=== PATIENT | male | born 1980 | race Caucasian/White ===

== ENCOUNTER 2024-08-17 12:04 | Inpatient (IN) | payer MEDICAID, SELFPAY ==
[2024-08-17] VITALS (7 sets, daily range): BP systolic 115–127; BP diastolic 81–85; PULSE 74–102; RESP 16–18; TEMP 36.9–38.2; O2SAT 95–98
--- NOTE | 2024-08-17 12:19 | PD.EDAMS ---
Altered Mental Status RME/HPI General Chief Complaint: Altered Mental Status Stated Complaint: ALTERED MORE THAN NORMAL Time Seen by Provider: 08/17/24 13:07 Arrival date/time: 08/17/24 12:04 RME / HPI RME / HPI narrative: 44 year old male with history of quadriplegia, seizures, s/p PEG tube placement, s/p suprapubic catheter, chronic decubitus ulcers presents to the ED [facility] from [facility] for evaluation of altered mental status. Per medics, MA staff reported patient appeared altered today and were unable to provide what patients baseline is, adding the patient just arrived to their facility 2 days ago. While in the ED patient is nonverbal and unable to provide any additional history. Related Data Home Medications ?Medication ?Instructions ?Recorded ?Confirmed lorazepam 0.5 mg tablet 0.5 mg PO BID 08/15/23 04/01/24 melatonin 12 mg tablet 12 mg PO HS 08/15/23 04/01/24 sennosides 17.2 mg tablet 17.2 mg PO BID 08/15/23 04/01/24 albuterol sulfate 2.5 mg/3 mL 2.5 mg inhalation BID 12/03/23 04/01/24 (0.083 %) solution for nebulization ascorbic acid (vitamin C) 500 mg 500 mg PO DAILY 12/03/23 04/01/24 tablet baclofen 10 mg tablet 10 mg PO Q6HR 12/03/23 04/01/24 hydrocodone 10 mg-acetaminophen 1 tab PO [id number] PRN Pain (Scale 12/03/23 02/06/24 325 mg tablet Score 7-10) levetiracetam 500 mg/5 mL (5 mL) 1,000 mg PO BID 12/03/23 04/01/24 oral solution multivitamin with minerals 1 tab PO QDAY 12/03/23 04/01/24 bisacodyl 10 mg rectal suppository 10 mg WY QDAY PRN Constipation 02/06/24 04/01/24 magnesium hydroxide 400 mg/5 mL 30 ml PO QDAY PRN Constipation 02/06/24 04/01/24 oral suspension (Milk of Magnesia) sodium phosphates 19 gram-7 118 ml WY QDAY PRN Constipation 02/06/24 04/01/24 gram/118 mL enema (Fleet Enema) Previous Rx's ?Medication ?Instructions ?Recorded quetiapine 25 mg tablet 25 mg PO QDAY 1 month #30 tabs 04/08/24 Allergies Allergy/AdvReac Type Severity Reaction Status Date / Time No Known Allergies Allergy Verified 04/07/24 14:49 Review of Systems Review of Systems ROS Unobtainable: unobtainable due to mental status Past Medical History Past Medical History NEUROLOGIC: Positive Neurological Disorders, Parkinson's Disease and Seizures RESPIRATORY: Positive Asthma MUSCULOSKELETAL: Positive Musculoskeletal Disorders, Fractures and Osteomyelitis PSYCHO/SOCIAL: Positive Depression and Anxiety OTHER HISTORY: Positive Hospitalization, Developmental Delay and Falls Family History FAMILY HISTORY: Negative Family Psychiatric Problems, Family Respiratory Disorders, Family Cardiac Disorders, Family Gastrointestinal Problems, Family Cancer, Family Surgery or Family Anesthesia Reaction Surgical History SURGICAL: Negative Cardiac Surgery, Endocrine Surgery, Ear Surgery, Abdominal Surgery, Nephrectomy, Neurologic Surgery, Brain Shunt or Vasectomy Social History SMOKING STATUS: Unknown if ever smoked SECOND HAND EXPOSURE: No SUBSTANCE USE: marijuana ED Exam Narrative Physical exam: GENERAL: In general the patient is awake, nonverbal, in an emergency department gurney.? HEAD/EYES/EARS/NOSE/THROAT: normo-cephalic, atraumatic, mucus membranes are dry.? No cervical tenderness palpation midline.? Supple neck. CARDIOVASCULAR: regular rate and regular rhythm, no murmurs, heart sounds are not distant, strong pulses in all four extremities that are equal and symmetric bilateral upper and lower extremities, normal capillary refill. CHEST/PULMONARY: normal chest rise and fall, good air movement, clear to auscultation bilaterally, normal inspiratory to expiratory ratios without evidence of respiratory distress. ABDOMEN: soft, not tender, no masses appreciated, PEG tube noted without surrounding erythema, suprapubic catheter without surrounding erythema or puss. NEUROLOGICAL: cranio-facial features are symmetric, nonverbal EXTREMITY: Upper and lower extremities are contracted. no tenderness to palpation over the long bones or large joints of the bilateral upper and lower extremities, no peripheral edema. SKIN: There is a stage 2 decubitus ulcer with hole in the center to the right sacrum, there is a stage 2 decubitus ulcer on the left sacrum, warm, dry, well-perfused, no jaundice, no rash, no telangiectasias or petechia. PSYCH: calm, cooperative, no evidence of psychosis or agitation Course Quality Measures none Orders Category Date Time Status CT head/brain wo con Stat Exams 03/17/25 13:07 Completed CXRP [XR chest 1V portable] Stat Exams 08/17/24 17:57 Completed BNP [B-Type Natriuretic Peptide] Stat Lab 08/17/24 13:37 Completed CBC Stat Lab 08/17/24 13:37 Completed CMP [Comprehensive Metabolic Panel] Stat Lab 08/17/24 13:37 Completed Lactic Acid [Lactate (Lactic Acid)] Stat Lab 08/17/24 13:37 Completed Procalcitonin Stat Lab 08/17/24 13:37 Completed Troponin I Stat Lab 08/17/24 13:37 Completed Acetaminophen Clarissa [Tylenol Clarissa] Med 08/17/24 17:46 Discontinued 650 mg GT X1 ONE Vital Signs Vital signs: Vital Signs Temperature 98.4 F 08/17/24 14:21 Respiratory Rate 18 08/17/24 14:21 Blood Pressure 118/83 08/17/24 14:21 Pulse Oximetry (%) 98 08/17/24 14:21 Altered Mental Status MDM Narrative MDM Narrative:: Etta Muñoz am scribing for and in the presence of Dr. Junior. 1800: Patient signed out to Dr. Yang pending CXR, repeat temperature, and final disposition. Patient data External records reviewed:: [facility] previous records, EMS form and Retirement records (I reviewed pmhx and medication list from [facility] ) Clinical information provided by:: EMS Social determinants that could affect healthcare access:: housing (SNF resident ) Patient has the following chronic illnesses:: quadriplegia, seizures, s/p PEG tube placement, s/p suprapubic catheter, chronic decubitus ulcers How is presenting disease/condition affected by chronic disease/condition?: exacerbated by Evaluation data The following diagnostics were reviewed and interpreted by me:: lab results and radiology exam(s) Lab and/or radiology exams considered but not ordered:: None Interpretation Summary: Ordering Physician: Nery Junior MD Date of Service: 08/17/24 Procedure(s): CT head/brain wo con Accession Number(s): [id number] cc: Jimmie Chavez MD; Jose Cole MD; Nery Junior MD~ Examination: CT brain head without contrast. 2-D sagittal coronal reconstructions Date and time of exam:August 17, 2024 1442 hours Comparison 02/22/2023 INDICATIONS: Onset altered mental status today CTDI: vol (mGy):1.1 DLP: (mGycm):1075 Technique: Multiple CT axial sections of the brain have been obtained, 5 mm slice thickness. Contrast has not been administered. 2-D sagittal, coronal reconstructions have been obtained Low dose protocols were performed. One or more of the following dose reduction techniques were used; automated exposure control, adjustment of the mA and/or KV according to patient size, use of iterative reconstruction technique. Findings: No significant ventricular enlargement. Intra-axial or extra-axial hemorrhage density is not seen. No mass effect or midline shift Basal cisterns are not remarkable. Fourth ventricle is midline. Cranial vault intact. Impression: Negative for acute hemorrhage, mass effect or midline shift Advise clinical correlation and follow-up accordingly Dictated By: Jose Cole MD Signed By: <Electronically signed by Jose Cole MD in OV> 08/17/24 1507 Medications / Prescriptions Medications or Prescriptions considered but not ordered:: None Medication administrations:: Medication Administration History Discontinued Medications Acetaminophen (Acetaminophen Clarissa 325 Mg/10 Ml Udc) 650 mg GT X1 ONE Stop: 08/17/24 17:47 See above Consultations Consultation(s) initiated? (list below): No Diagnosis Differential diagnosis altered mental status: altered mental status, delirium, hypoglycemia, hyponatremia, subarachnoid hemorrhage, sepsis and other (UTI) Most likely diagnosis given after review of the tests above:: Altered mental status Admission Indicated Admission indicated?: not indicated Explain why admission is indicated or not indicated:: 1800: Patient signed out to Dr. Yang pending CXR, repeat temperature, and final disposition. Admission Request Was there a request for admission?: No Disposition Plan Disposition Plan: other (specify) (Signed out to Dr. Yang ) Discharge Plan Prescriptions/Referrals Prescriptions/Med Rec: No Action lorazepam 0.5 mg Tablet 0.5 mg PO BID sennosides 17.2 mg Tablet 17.2 mg PO BID Rx Instructions: NG tube administration melatonin 12 mg Tablet 12 mg PO HS Rx Instructions: NG tube administration quetiapine 25 mg tablet 25 mg PO QDAY 30 Days Qty: 30 0RF albuterol sulfate 2.5 mg /3 mL (0.083 %) solution for nebulization 2.5 mg inhalation BID Rx Instructions: inhalation levetiracetam 500 mg/5 mL (5 mL) solution 1,000 mg PO BID hydrocodone-acetaminophen 10-325 mg tablet 1 tab PO [id number] PRN (Reason: Pain (Scale Score 7-10)) baclofen 10 mg tablet 10 mg PO Q6HR ascorbic acid (vitamin C) 500 mg Tablet 500 mg PO DAILY multivitamin with minerals Tablet 1 tab PO QDAY magnesium hydroxide [Milk of Magnesia] 400 mg/5 mL Suspension 30 ml PO QDAY PRN (Reason: Constipation) bisacodyl 10 mg Suppository 10 mg WY QDAY PRN (Reason: Constipation) Fleet Enema 19-7 gram/118 mL Enema 118 ml WY QDAY PRN (Reason: Constipation) Referrals: Jimmie Chavez MD [Primary Care Provider] - In 1 week Problem List Clinical Impression: Fever Patient/Caregiver Discharge Instructions Print Language: Lao
--- NOTE | 2024-08-17 13:07 | XR_ITS ---
Examination: CT brain head without contrast. 2-D sagittal coronal reconstructions Date and time of exam:August 17, 2024 1442 hours Comparison 02/22/2023 INDICATIONS: Onset altered mental status today CTDI: vol (mGy):1.1 DLP: (mGycm):1075 Technique: Multiple CT axial sections of the brain have been obtained, 5 mm slice thickness. Contrast has not been administered. 2-D sagittal, coronal reconstructions have been obtained Low dose protocols were performed. One or more of the following dose reduction techniques were used; automated exposure control, adjustment of the mA and/or KV according to patient size, use of iterative reconstruction technique. Findings: No significant ventricular enlargement. Intra-axial or extra-axial hemorrhage density is not seen. No mass effect or midline shift Basal cisterns are not remarkable. Fourth ventricle is midline. Cranial vault intact. Impression: Negative for acute hemorrhage, mass effect or midline shift Advise clinical correlation and follow-up accordingly
[2024-08-17 13:45] LABS: Lactate (Lactic Acid) 1.3 mMol/L (0.4-2.0)
[2024-08-17 13:58] LABS: Basophils # (Auto) 0.1 Thou/mm3 (0.0-0.2); Basophils % (Auto) 1 % (0-2.5); Eosinophils # (Auto) 0.1 Thou/mm3 (0.0-0.5); Eosinophils % (Auto) 1 % (0-10); Hematocrit 42.6 % (41.0-53.0); Hemoglobin 13.4 g/dL (13.5-16.0); Immature Granulocytes % (Auto) 0 % (0-0); Immature Granulocytes Auto 0.02 Thou/mm3 (0.00-0.00); Lymphocytes # (Auto) 1.7 Thou/mm3 (1.0-4.8); Lymphocytes % (Auto) 26 % (10-50); Mean Corpuscular HGB Conc 31.5 g/dl (31.0-37.0); Mean Corpuscular Hemoglobin 26.4 pg (25.0-35.0); Mean Corpuscular Volume 84 fL (80-100); Monocytes # (Auto) 0.6 Thou/mm3 (0.0-0.8); Monocytes % (Auto) 8 % (0-12); Neutrophils # (Auto) 4.4 Thou/mm3 (1.8-7.7); Neutrophils % (Auto) 65 % (37-80); Nucleated Red Blood Cell % 0 /100 WBC (0); Platelet Count 135 Thou/mm3 (140-440); RDW Standard Deviation 48.1 fL (35.1-43.9); Red Blood Count 5.07 Miln/mm3 (4.50-5.90); White Blood Count 6.8 Thou/mm3 (3.8-10.6)
[2024-08-17 14:18] LABS: B-Type Natriuretic Peptide 34 pg/mL (0-100)
[2024-08-17 14:29] LABS: Alanine Aminotransferase < 7 U/L (10-49); Albumin/Globulin Ratio 1.1 (1.2-2.2); Alkaline Phosphatase 84 U/L (46-116); Anion Gap 12 (7-16); Aspartate Amino Transferase 10 U/L (0-34); BUN/Creatinine Ratio 28 Ratio (12-20); Bilirubin,Total 0.6 mg/dL (0.3-1.2); Blood Urea Nitrogen 14 mg/dL (9-23); Calcium 9.5 mg/dL (8.3-10.6); Calcium (Corrected) 9.5 mg/dL (8.5-10.1); Carbon Dioxide 23.8 mMol/L (20.0-31.0); Chloride 106 mMol/L (98-107); Creatinine (Component) 0.5 mg/dL (0.6-1.3); Globulin 3.7 gm/dL (2.3-3.5); Glucose 84 mg/dL (74-106); Osmolality,Calculated 282 (275-295); Potassium 4.2 mMol/L (3.4-5.1); Procalcitonin 0.09 ng/ml (0.0-0.49); Sodium 142 mMol/L (136-145); Total Protein 7.7 gm/dL (5.7-8.2); Troponin I < 0.002 ng/mL (0.0-0.045); eGFR > 60 See Note
--- NOTE | 2024-08-17 17:57 | XR_ITS ---
Examination: AP chest single view Technique one AP portable supine chest single view Exam date and time: August 17, 2024 1702 hrs. Comparison April 03, 2024 Indications: Fever beginning 3 days ago. Findings: Early right base pneumonia Normal heart size Mild osteopenia Impression: Early right base pneumonia
--- NOTE | 2024-08-17 18:24 | EDNOTE_ITS ---
Emergency Room Addendum <Yanet Shaw - Last Filed: 08/17/24 21:52> Addendum Narrative: [address] Junior. Past medical, surgical, social and family history reviewed. Vitals and home medications reviewed. Results and treatment plan discussed. I will assume the care of the patient at this time and will follow the patient, pending CXR, repeat temperature, and final disposition. Patient is on hospice for comfort care measures at [facility]. Please refer to the emergency department record for history and examination from initial visit. The following addendum documentation note is intended to reflect any pending information, findings, or radiology results not included in the patient?s initial chart. RADIOLOGY DATA: Examination: AP chest single view Exam date and time: August 17, 2024 1702 hrs. Comparison April 03, 2024 Indications: Fever beginning 3 days ago. Findings: Early right base pneumonia Normal heart size Mild osteopenia Impression: Early right base pneumonia 1841 Sepsis alert initiated. Orders made at this time are congruent with ED Adult Sepsis Order List. Re-evaluation is to be completed. 1907 Sepsis reassessment performed consisting of lab review, vitals, physical exam including auscultation of heart, lungs, and visual evaluation of capillary refills, mucosal membranes and extremities. 2134 UA strongly positive for infection. Case d/w hospitalist team who accepts patient for admission. Clinical Impression: #Severe Sepsis #UTI #Dehydration #AMS <Sharon Christina - Last Filed: 08/17/24 23:48> Addendum Narrative: [address] Junior. Past medical, surgical, social and family history reviewed. Vitals and home medications reviewed. Results and treatment plan discussed. I will assume the care of the patient at this time and will foll ow the patient, pending CXR, repeat temperature, and final disposition. Patient is on hospice for comfort care measures at [facility]. Please refer to the emergency department record for history and examination from initial visit. The following addendum documentation note is intended to reflect any pending information, findings, or radiology results not included in the patient?s initial chart. 1841 Sepsis alert initiated. Orders made at this time are congruent with ED Adult Sepsis Order List. Re-evaluation is to be completed. 1907 Sepsis reassessment performed consisting of lab review, vitals, physical exam including auscultation of heart, lungs, and visual evaluation of capillary refills, mucosal membranes and extremities. 2134 UA strongly positive for infection. Case d/w hospitalist team who will evaluate patient for admission. [address] abdomen pelvis before admitting the patient. 2344 Hospitalist team accepts the patient for admission. Clinical Impression: #Severe Sepsis #UTI #Dehydration #AMS RADIOLOGY RESULTS: [facility] Report Signed Patient: TRELL VERGARA [facility]. Record#: [id number] Birthdate: 1980 Age/Sex: 44 / M Location: SERX Attending Dr: Ordering Physician: Bin Sprague MD Date of Service: 08/17/24 Procedure(s): CT abdomen pelvis wo con Accession Number(s): [id number] cc: iBn Sprague MD; Jimmie Chavez MD; Jose Cole MD~ Examination: CT abdomen and pelvis without contrast. Coronal 3-D reconstructions. Sagittal 2-D reconstructions. Date and time of exam:August 17, 2024 1038 hrs. Comparison February 06, 2024 Indications: Urosepsis abdominal pain and rigid abdomen today CTDI: vol (mGy): 9.74 DLP: (mGycm): 557 Technique: Axial images of the abdomen have been obtained, 3 mm slice thickness Intravenous contrast material has not been administered. Low dose protocols were performed. One or more of the following dose reduction techniques were used; automated exposure control, adjustment of the mA and/or KV according to patient size, use of iterative reconstruction technique. Findings: Atelectasis versus pneumonia right base No focal liver or splenic lesion No gallstones Extensive bilateral renal calculi including large staghorn calculi in the right kidney, the largest in the upper pole 33 mm Abdominal aortic calcification Vascular calcification Very large amounts of stool in the rectum with thickening the rectal wall Contracted urinary bladder with 20 mm bladder calculus, marked thickening of urinary bladder wall Congenital right hip dysplasia/dislocation Impression: Extensive bilateral renal calculi including large staghorn calculi right kidney No hydronephrosis 20 mm bladder calculus Cystitis pattern Large amounts of stool in the rectum with proctitis pattern Dictated By: Jose Cole MD Signed By: <Electronically signed by Jose Cole MD in OV> 08/17/24 2316 Examination: AP chest single view Exam date and time: August 17, 2024 1702 hrs. Comparison April 03, 2024 Indications: Fever beginning 3 days ago. Findings: Early right base pneumonia Normal heart size Mild osteopenia Impression: Early right base pneumonia Attestation <Yanet Shaw - Last Filed: 08/17/24 21:52> MD Attestation Scribe Attestation: I, Mario Shaw, am scribing for and in the presence of Dr. Yang. Provider Notation: Although this document has been carefully reviewed, there may still be some phonetic and other typographical errors. These errors are purely grammatical due to imperfections in the software program and should not be construed in any way to compromise the substance of the patient's medical care during this visit. Critical Care Time <Yanet Shaw - Lucio Filed: 08/17/24 21:52> Critical Care Time Critical Care Time: Yes Total Critical Care Time (min.): 40 Attestation: The high probability of sudden, clinically significant deterioration in the patient?s condition required the highest level of my preparedness to intervene urgently. ? The services I provided to this patient were to treat and/or prevent clinically significant deterioration. Services included the following: chart data review, reviewing nursing notes and/or old charts, documentation time, it infrastructure consultant collaboration regarding findings and treatment options, medication orders and management, direct patient care, vital sign assessments and ordering, interpreting and reviewing diagnostic studies and lab tests. ? Aggregate critical care time includes only time during which I was engaged in work directly related to the patient?s care, as described above, whether at bedside or elsewhere in the Emergency Department. It did not include time spent performing other reported procedures or the services of residents, students, nurses or physician assistants.
[2024-08-17] MEDS: ACETAMINOPHEN SOL 325 MG/10 ML UDC 650 MG GT (18:29)
--- NOTE | 2024-08-17 18:40 | EKG_ITS ---
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1980 Requested By: Parmjit Banks Order Number: [id number] Reading MD: Parmjit Banks Measurements Intervals [place] Rate: 69 P: 74 HI: 166 QRS: 83 QRSD: 116 T: 75 QT: 390 QTc: 419 Interpretive Statements SINUS RHYTHM INCOMPLETE RIGHT BUNDLE BRANCH BLOCK [90+ ms QRS DURATION, TERMINAL R IN V1/V2, 40+ ms S IN I/aVL/V4/V5/V6] PROBABLE LATERAL MYOCARDIAL INFARCTION , OF INDETERMINATE AGE [35 ms Q WAVE IN I/aVL/V5/V6] MODERATE T-WAVE ABNORMALITY, CONSIDER ANTERIOR ISCHEMIA [-0.1+ mV T-WAVE IN V3/V4] Compared to ECG 03/31/2024 11:43:44 Incomplete right bundle-branch block now present Myocardial infarct finding now present Sinus tachycardia no longer present Ventricular premature complex(es) no longer present Short HI interval no longer present T-wave abnormality still present Possible ischemia still present /store/S0/[id number]/ecg/[id number].pdf
[2024-08-17 19:19] LABS: INR 1.1 (0.9-1.3); Partial Thromboplastin Time 21.1 Seconds (22.0-36.0)
[2024-08-17 19:20] LABS: LDH (Lactate Dehydrogenase) 132 U/L (120-246); Lipase 29 U/L (12-53); Phosphorous 3.6 mg/dL (2.4-5.1)
[2024-08-17] MEDS: PIPER/TAZO INJ 4.5 GM in SODIUM CHLORIDE 0.9% (POP) 100 ML IV (19:22)
[2024-08-17 21:05] LABS: Collection Type, Urine Catheter
[2024-08-17] MEDS: DOXYCYCLINE INJ 100 MG in SODIUM CHLORIDE 0.9% (POP) 100 ML IV (21:13)
[2024-08-17 21:18] LABS: Bacteria,Urine 3+; Bilirubin,Urine Negative (Negative); Blood,Urine 1+ (Negative); Budding Yeast,Urine Present; Color,Urine Orange (Lt Yel-Yel); Glucose, Urine Negative (Negative); Hyaline Casts,Urine 2 /hpf (0-1); Ketones,Urine 2+ (Negative); Leukocyte Esterase,Urine Positive (Negative); Nitrite,Urine Negative (Negative); Protein,Urine 3+ (Neg - Trace); RBC,Urine 147 /hpf (0-3); Specific Gravity,Urine 1.018 (1.001-1.035); Squamous Epithelial Cell,Urine 4 /hpf (0-5); Urobilinogen,Urine Negative mg/dL (0.0-1.0); WBC,Urine 1846 /hpf (0-5)
[2024-08-17 21:30] LABS: Clarity,Urine Turbid (Clear/Hazy); Culture Indicated,Urine Yes
--- NOTE | 2024-08-17 22:00 | XR_ITS ---
Examination: CT abdomen and pelvis without contrast. Coronal 3-D reconstructions. Sagittal 2-D reconstructions. Date and time of exam:August 17, 2024 1038 hrs. Comparison February 06, 2024 Indications: Urosepsis abdominal pain and rigid abdomen today CTDI: vol (mGy): 9.74 DLP: (mGycm): 557 Technique: Axial images of the abdomen have been obtained, 3 mm slice thickness Intravenous contrast material has not been administered. Low dose protocols were performed. One or more of the following dose reduction techniques were used; automated exposure control, adjustment of the mA and/or KV according to patient size, use of iterative reconstruction technique. Findings: Atelectasis versus pneumonia right base No focal liver or splenic lesion No gallstones Extensive bilateral renal calculi including large staghorn calculi in the right kidney, the largest in the upper pole 33 mm Abdominal aortic calcification Vascular calcification Very large amounts of stool in the rectum with thickening the rectal wall Contracted urinary bladder with 20 mm bladder calculus, marked thickening of urinary bladder wall Congenital right hip dysplasia/dislocation Impression: Extensive bilateral renal calculi including large staghorn calculi right kidney No hydronephrosis 20 mm bladder calculus Cystitis pattern Large amounts of stool in the rectum with proctitis pattern
--- NOTE | 2024-08-17 22:01 | PD.RESEVENT ---
Documentation for date of: 08/17/24 Event Note Event Note: We recieved a call from the ED Dr Yang regarding possible admission for the patient Josiah Watkins 44M with hx of qudriplegia coming from SNF for [facility]MS and turbid urine noticed by his nurse, On Exam patient had rigid abdomen and was grimacing on examination, for that reason will hold on the admission untill we get a CT abdomen and pelvice at this moment. Plan discussed with ED attending Dr Yang. - Patient's plan and care discussed with my attending, Dr. Ghada Sprague MD Internal Medicine PGY-2
[2024-08-17] MEDS: SODIUM CHLORIDE 0.9% 1000 ML 1,000 ML 999 ML IV (22:12)
[2024-08-18] VITALS (14 sets, daily range): BP systolic 112–135; BP diastolic 72–102; PULSE 81–110; RESP 18–31; TEMP 36.3–38.2; O2SAT 83–99; BMI 17.0
--- NOTE | 2024-08-18 00:03 | ESHP_ITS ---
<Statement entered by Shyam Urrutia MD - 08/20/24 06:19> I reviewed above note and agree with findings and plans. I have also personally examined the patient with medicine team and went over assessment and plan with medical team including planner internship and resident physician. Documentation for date of: 08/18/24 HPI History of Present Illness Chief complaint: AMS History of present illness: HPI:A 44-year-old male patient with past medical history of quadriplegia, seizures, status post PEG tube placement, suprapubic catheter, chronic decubitus ulcer was brought to the ED from SNF due to due to altered mental status and fever. Patient at baseline is verbal and oriented x 3 however at the facility he was noticed to have had 2 episodes of fever in in the past 2 days. He also noticed to be less talkative and not responsive to the nursing facility staff. They denied any skin rash vomiting, shortness of breath, or abdominal pain at that time. Most of the history was taken from the assisted facility staff, ED doctors, patient chart and documents due to patient mental status. In the ED patient was found to have blood pressure of 118/83, pulse rate of 95, respiratory rate of 18, temperature of 98.4, O2 saturation 98. His CBC was only significant for platelet count of 135, BMP showed lactic acid normal of 1.3, normal electrolytes, normal lipase and negative procalcitonin however his urine analysis was dark orange, turbid, with positive ketones, proteins and blood, it was positive for WBCs more than 1800, positive for bacteria and yeast. Chest x- ray showed early base pneumonia, Head CT was negative for any hemorrhage or mass effect, CT abdomen and pelvis showed bilateral calculi however there was no obstruction and no hydronephrosis, also showed cystitis, and it also was significant for huge amount of stool in the rectum area with proctitis. At the ED patient was given 1 bolus of IV fluids NS, and was started on doxycycline and Zosyn and was given 1 dose of acetaminophen through the gastric tube. PMH: As above Social hx: Unobtainable due to patient medical condition Allergies: No known allergies Review of Systems Review of Systems Systems Reviewed: All systems reviewed, normal except as documented Exam Vital Signs Temp Pulse Resp BP Pulse Ox O2 Del Method O2 Flow Rate 98.7 F 74 18 125/85 H 95 Nasal Cannula 2 08/17/24 22:06 08/17/24 22:06 08/17/24 22:06 08/17/24 22:06 08/17/24 22:06 08/17/24 22:06 08/17/24 22:06 Narrative Exam GEN: Alert, however not responsive, right eye red and congested, with yellowish discharge. 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 Results: Labs 08/17/24 13:37 08/17/24 13:37 Labs: Short CBC 08/17/24 Range/Units 13:37 WBC 6.8 (3.8-10.6) Thou/mm3 Hgb 13.4 L (13.5-16.0) g/dL Hct 42.6 (41.0-53.0) % Plt Count 135 L (140-440) Thou/mm3 BMP 08/17/24 13:37 Sodium 142 Potassium 4.2 Chloride 106 Carbon Dioxide 23.8 BUN 14 Creatinine 0.5 L Glucose 84 Calcium 9.5 Cardiac Enzymes 08/17/24 Range/Units 13:37 Troponin I < 0.002 (0.0-0.045) ng/mL Liver Function 08/17/24 Range/Units 13:37 Total Bilirubin 0.6 (0.3-1.2) mg/dL AST 10 (0-34) U/L ALT < 7 L (10-49) U/L Alkaline Phosphatase 84 (46-116) U/L Albumin 4.0 (3.5-5.0) gm/dL Urine 08/17/24 Range/Units 21:00 Urine Color [place] A (Lt Yel-Yel) Urine Clarity Turbid A (Clear/Hazy) Urine pH 7.0 (5.0-7.0) Ur Specific [place] 1.018 (1.001-1.035) Urine Protein 3+ A (Neg - Trace) Urine Glucose (UA) Negative (Negative) Quality Measures Quality Measures none Medications Home Medications and Allergies Home Medications ?Medication ?Instructions ?Recorded ?Confirmed ?Type lorazepam 0.5 mg tablet 0.25 mg PO BID 08/15/2308/01 History sennosides 17.2 mg tablet 8.6 mg PO BID 08/15/2308/18 History ascorbic acid (vitamin C) 500 mg 500 mg PO DAILY 12/0208/18/24 History tablet baclofen 10 mg tablet 10 mg PO Q6HR 12/03/2308/18 History hydrocodone 10 mg-acetaminophen 1 tab PO R6IREPD PRN P ain (Scale 12/03/23 08/18/24 History 325 mg tablet Score 7-10) levetiracetam 500 mg/5 mL (5 mL) 500 mg PO BID 4 08/18/24 History oral solution multivitamin with minerals 1 tab PO QDAY 12/03/2308/01 History bisacodyl 10 mg rectal suppository 10 mg TN QDAY PRN C onstipation 02/06/24 08/18/24 History magnesium hydroxide 400 mg/5 mL 30 ml PO QDAY PRN Cons tipation 02/06/24 08/18/24 History oral suspension (Milk of Magnesia) sodium phosphates 19 gram-7 118 ml TN Q72H PRN Constip ation 02/06/24 08/18/24 History gram/118 mL enema (Fleet Enema) ibuprofen 400 mg tablet (IBU) 400 mg PO Q12H PRN pain 08/18/24 08/18/24 History methadone 10 mg tablet 20 mg PO Q8H 08/18/24 History morphine concentrate 100 mg/5 mL 20 mg PO Q4H PRN pain 08/18/24 08/18/24 History (20 mg/mL) oral solution omeprazole 20 mg capsule,delayed 20 mg PO QDAY 5 08/18/24 History release zinc 50 mg tablet 50 mg PO QDAY 08/18/2408/18 History Allergies Allergy/AdvReac Type Severity Reaction Status Date / Time No Known Allergies Allergy Verified 04/07/24 14:49 Visit Medications Acetaminophen (Acetaminophen 325 Mg Tablet) 650 mg PO Q6H PRN PRN Reason: Fever >101.5 Stop: 09/16/24 23:35 Albuterol/Ipratropium (Albuterol/Ipratropium (Duoneb) Rt Clarissa 3 Ml Nebu) 3 ml INH Q6HRRT [facility] Stop: 09/17/24 00:59 Azithromycin (Azithromycin 250 Mg Tablet) 250 mg PO QDAY [facility] Stop: 08/25/24 08:59 Erythromycin (Erythromycin Op Oint 0.5% 1 Gm Packet) 1 gm RIGHT EYE QID ANGEL Stop: 09/16/24 23:44 Heparin Sodium (Porcine) (Heparin Sod Inj 5000 Unit/Ml Vial) 5,000 unit SC Q8HR ANGEL Stop: 08/31/24 23:44 Sodium Chloride (Ns) 1,000 mls @ 75 mls/hr IV .[id number] ANGEL Stop: 09/16/24 23:44 Ceftriaxone Sodium 1,000 mg/ (Sodium Chloride) 50 mls @ 100 mls/hr IV QDAY ANGEL Stop: 08/24/24 23:40 Mineral Oil (Mineral Oil 30 Ml Udc) 30 ml TN BID ANGEL Stop: 09/16/24 23:44 Ondansetron HCl (Ondansetron Inj 2 Mg/Ml Inj 2 Ml) 4 mg IV Q6H PRN; Protocol PRN Reason: NAUSEA OR VOMITING Stop: 09/16/24 23:35 Pantoprazole Sodium (Pantoprazole Inj 40 Mg Vial) 40 mg IVP QDAY [facility] Stop: 09/17/24 08:59 Polyethylene Glycol (Polyethylene Glycol 17 Gm Packet) 17 gm PO X1 ONE Stop: 08/17/24 23:46 Discontinued Medications Acetaminophen (Acetaminophen Clarissa 325 Mg/10 Ml Udc) 650 mg GT X1 ONE Stop: 08/17/24 17:47 Last Admin: 08/17/24 18:29 Dose: 650 mg Piperacillin Sod/Tazobactam (Sod 4.5 gm/ Sodium Chloride) 100 mls @ 200 mls/hr IV X1 ONE Stop: 08/17/24 19:11 Last Infusion: 08/17/24 20:30 Dose: Infused Doxycycline Hyclate 100 mg/ (Sodium Chloride) 100 mls @ 100 mls/hr IV X1 ONE Stop: 08/17/24 21:26 Last Admin: 08/17/24 21:13 Dose: 100 mls/hr Sodium Chloride (Ns) 1,000 mls @ 999 mls/hr IV .Q1H1M ONE Stop: 08/17/24 22:40 Last Admin: 08/17/24 22:12 Dose: 999 mls/hr Assessment & Plan Plan Summary:A 44-year-old male patient with past medical history of quadriplegia, seizures, status post PEG tube placement, suprapubic catheter, chronic decubitus ulcer was brought to the ED from SNF due to due to altered mental status and fever. Patient at baseline is verbal and oriented x 3 however at the facility he was noticed to have had 2 episodes of fever in in the past 2 days. He also noticed to be less talkative and not responsive to the nursing facility staff. Patient was admitted for treatment of sepsis secondary to UTI and pneumonia. Assessment and plan #Acute metabolic encephalopathy secondary to UTI #Acute UTI #Community-acquired pneumonia Patient with chronic suprapubic catheter, presented with tachycardia, he spiked fever at the nursing facility, is tachycardic with heart rate of 112, His CBC was only significant for platelet count of 135, BMP showed lactic acid normal of 1.3, normal electrolytes, normal lipase and negative procalcitonin however his urine analysis was dark orange, turbid, with positive ketones, proteins and blood, it was positive for WBCs more than 1800, positive for bacteria and yeast. Chest x-ray showed early base pneumonia, Head CT was negative for any hemorrhage or mass effect, CT abdomen and pelvis showed bilateral calculi however there was no obstruction and no hydronephrosis, also showed cystitis. COVID, flu, RSV all are negative Plan ? Admit patient to med/tele ? Start the patient on ceftriaxone and azithromycin for both pneumonia and UTI ? Oxygen as needed ? MRSA screening ? Follow-up on the urine and blood cultures and sensitivity ? Follow-up on the cocci screening. #Rt Sided conjuncttevitis Patient has red discoloration on the right eye with purulent discharge, no itching Plan ? Start the patient on erythromycin ophthalmic ointment 4 times daily ? Eye care daily #Severe constipation #Proctitis CT abdomen and pelvis showed severe stool impaction, appears to be compressing the urinary bladder. Associated with proctitis Patient is bedridden, noticed some of his meds could be narcotics which may lead to stool impaction At this time the patient was mildly dehydrated we will hold on osmotic laxatives at this time decrease the risk of worsening his dehydration Plan ? Mineral oil enema twice daily ? MiraLAX daily ? Consider manual disimpaction if needed #History of seizure disorder Plan ? Resume home medications start after med reconciliation #History of quadriplegia status post PEG tube Plan ? Keep the patient n.p.o. at this time, ? Keep the patient on maintenance IV fluid 75 mL/h ? Consider resuming patient's feed after stabilization of his condition Hospital Maintenance: FEN: N.p.o. at this time DVT ppx: Heparin subcu GI ppx: Protonix IV lines: PIV Moyer: Suprapubic catheter Code status: Full code Dispo: Med/tele - Patient's plan and care discussed with my attending, Dr. Ghada Sprague MD Internal Medicine PGY-2
[2024-08-18] MEDS: cefTRIAXone 1,000 MG in SODIUM CHLORIDE 0.9% (Popper) 50 ML 100 MG IV (01:54)
[2024-08-18] MEDS: ALBUTEROL/IPRATROPIUM (Duoneb) RT SOL 3 ML NEBU INH ×4 (01:54→19:45)
[2024-08-18] MEDS: SODIUM CHLORIDE 0.9% 1000 ML 1,000 ML 75 ML IV ×2 (01:55→17:16)
[2024-08-18] MEDS: Erythromycin Op Oint 0.5% 1 GM PACKET RIGHT EYE ×4 (02:04→20:38)
[2024-08-18] MEDS: HEPARIN SOD INJ 5000 UNIT/ML VIAL SC ×4 (02:04→21:09)
[2024-08-18] MEDS: POLYETHYLENE GLYCOL 17 GM PACKET PO (04:45)
--- NOTE | 2024-08-18 05:02 | PC.NURSE ---
Report given to SHADIA Daniels
[2024-08-18 06:09] LABS: Basophils % (Auto) 1 % (0-2.5); Eosinophils % (Auto) 0 % (0-10); Hematocrit 40.5 % (41.0-53.0); Hemoglobin 12.9 g/dL (13.5-16.0); Immature Granulocytes % (Auto) 0 % (0-0); Immature Granulocytes Auto 0.03 Thou/mm3 (0.00-0.00); Lymphocytes # (Auto) 1.2 Thou/mm3 (1.0-4.8); Lymphocytes % (Auto) 14 % (10-50); Mean Corpuscular HGB Conc 31.9 g/dl (31.0-37.0); Mean Corpuscular Hemoglobin 26.4 pg (25.0-35.0); Mean Corpuscular Volume 83 fL (80-100); Monocytes # (Auto) 0.6 Thou/mm3 (0.0-0.8); Monocytes % (Auto) 7 % (0-12); Neutrophils # (Auto) 6.9 Thou/mm3 (1.8-7.7); Neutrophils % (Auto) 78 % (37-80); Nucleated Red Blood Cell % 0 /100 WBC (0); Platelet Count 277 Thou/mm3 (140-440); RDW Standard Deviation 47.9 fL (35.1-43.9); Red Blood Count 4.89 Miln/mm3 (4.50-5.90); White Blood Count 8.8 Thou/mm3 (3.8-10.6)
--- NOTE | 2024-08-18 06:30 | PC.NURSE ---
Pt getting transfered to med surg, gave report to SHADIA Cam at [phone]
[2024-08-18 06:57] LABS: Alanine Aminotransferase < 7 U/L (10-49); Albumin, Serum 3.9 gm/dL (3.5-5.0); Albumin/Globulin Ratio 1.2 (1.2-2.2); Alkaline Phosphatase 78 U/L (46-116); Anion Gap 14 (7-16); Aspartate Amino Transferase 11 U/L (0-34); BUN/Creatinine Ratio 30 Ratio (12-20); Bilirubin,Total 0.6 mg/dL (0.3-1.2); Blood Urea Nitrogen 15 mg/dL (9-23); Calcium 9.2 mg/dL (8.3-10.6); Calcium (Corrected) 9.3 mg/dL (8.5-10.1); Carbon Dioxide 21.3 mMol/L (20.0-31.0); Chloride 109 mMol/L (98-107); Creatinine (Component) 0.5 mg/dL (0.6-1.3); Estimated Creatinine Clearance 143.8 mL/min (>60); Globulin 3.3 gm/dL (2.3-3.5); Glucose 87 mg/dL (74-106); Magnesium 1.9 mg/dL (1.6-2.6); Osmolality,Calculated 286 (275-295); Phosphorous 3.6 mg/dL (2.4-5.1); Potassium 3.4 mMol/L (3.4-5.1); Sodium 144 mMol/L (136-145); Total Protein 7.2 gm/dL (5.7-8.2); eGFR > 60 See Note
[2024-08-18] MEDS: AZITHROMYCIN 250 MG TABLET PO (09:24)
[2024-08-18] MEDS: PANTOPRAZOLE INJ 40 MG VIAL IVP (09:24)
--- NOTE | 2024-08-18 09:30 | PC.NURSE ---
Notified MD Gaxiola on new pts current NPO status. Per MD will evaluate & communications tower technician ref will be entered. No new orders given at this time.
[2024-08-18] MEDS: METHADONE HCL 10 MG TABLET 20 MG PO ×2 (11:47→18:06)
[2024-08-18] MEDS: levETIRAcetam LIQD 500 MG/5 ML UDC GT ×2 (11:48→20:38)
--- NOTE | 2024-08-18 12:47 | PD.ADDPROG ---
Addendum Progress Note Addendum Date of report being addended: 08/18/24 Narrative: Attending's attestation: I reviewed labs, imaging, EKG, home medications and prior available records. Face to face evaluation was performed by me. I have personally examined the patient and discussed assessment and plan with the IM team. I reviewed the resident note and agree with the plan with exceptions as below. Quadriplegia Possible sepsis: Community-acquired pneumonia versus acute UTI Acute encephalopathy Acute hypoxic respiratory failure Right eye conjunctivitis, likely bacterial Severe constipation History of seizures Continue ceftriaxone/azithromycin Follow-up blood and urine cultures Trend WBC Started erythromycin ointment Resume home Keppra Treatment of constipation as needed
[2024-08-18 12:54] LABS: Cocci Serology, IgM Negative (Negative)
--- NOTE | 2024-08-18 14:42 | PC.SS ---
SS was able to speak with patient's uncle, Robby who confirmed pt will return to [facility] with [facility].
--- NOTE | 2024-08-18 16:39 | PC.NURSE ---
Notified Dr Kenyon of pts current NPO & status on resuming peg tube feedings per MD will evaluate.
--- NOTE | 2024-08-18 17:04 | ESPR_ITS ---
<Statement entered by Jess Kenyon MD - 08/19/24 08:26> Patient was seen and examined by me personally. I have directly supervised and reviewed documentation by the team resident and agree with its findings with any exceptions or additional findings as below. Plan of care was discussed with the attending, Dr. Meyers. New overnight admission. Patient is a 44-year-old male patient with past medical history of quadriplegia, seizures, status post PEG tube placement, suprapubic catheter, chronic decubitus ulcer was brought to the ED from SNF due to due to altered mental status and fever. Patient was seen and still appeared altered, repeating phrases. Patient will continue IV antibiotics for UTI. PEG tube feeds will be resumed, dietary consulted. Jess Kenyon, PGY-2 Documentation for date of: 08/18/24 Subjective Subjective Interval history: Patient was seen and examined by the bedside. Patient is resting in the bed, roused by the voice, AAO x 0. During conversation repeats phrases regarding people still dreaming , not listening . Saturates well on room air. Will continue with antibiotics. Exam Vital Signs Temp Pulse Resp BP Pulse Ox O2 Del Method O2 Flow Rate 97.8 F 82 20 127/79 95 Oxy Mask 6 08/18/24 12:00 08/18/24 12:30 08/18/24 12:30 08/18/24 12:00 08/18/24 12:30 08/18/24 12:00 08/18/24 12:30 Narrative Exam Gen: Chronically ill-appearing emaciated man. HEENT: NCAT, PERRLA, EOMI, MMM, right-sided injected conjunctiva with purulent discharge. CVS: normal S1 and S2. RRR. No M/R/G. Resp: CTA B/L. No rhonchi, rales, crackles or wheezing. Abd: soft, non-tender, non-distended. BS+ in all 4 quadrants. MSK: Good ROM in BUE & BLE. No edema or rash. Neuro: CN II-XII grossly intact. Tetraplegia. Alert and oriented x0. Psych: Does not answer the questions, repeats phrases people dreaming , listen to me . Objective Labs 08/18/24 04:38 08/18/24 04:38 Labs: Laboratory Results - last 24 hr 08/17/24 08/17/24 08/18/24 18:53 21:00 00:06 WBC RBC Hgb Hct MCV MCH MCHC RDW Std Deviation Plt Count Neut % (Auto) Lymph % (Auto) [place] % (Auto) Eos % (Auto) Baso % (Auto) Neut # (Auto) Lymph # (Auto) [place] # (Auto) Eos # (Auto) Baso # (Auto) Immature Gran # (Auto) Absolute Nucleated RBC Immature Gran % Nucleated RBC % PT 12.0 INR 1.1 APTT 21.1 L Sodium Potassium Chloride Carbon Dioxide Anion Gap BUN Creatinine Estim Creat Clear Calc eGFR BUN/Creatinine Ratio Glucose Calculated Osmolality Calcium Corrected Calcium Phosphorus 3.6 Magnesium 2.0 Total Bilirubin AST ALT Alkaline Phosphatase Lactate Dehydrogenase 132 Total Protein Albumin Globulin Albumin/Globulin Ratio Lipase 29 TSH 0.50 L Ur Collection Type Catheter Urine Color [place] A Urine Clarity Turbid A Urine pH 7.0 Ur Specific [place] 1.018 Urine Protein 3+ A Urine Glucose (UA) Negative Urine Ketones 2+ A Urine Blood 1+ A Urine Nitrite Negative Urine Bilirubin Negative Urine Urobilinogen (Auto) Negative Ur Leukocyte Esterase Positive Urine RBC 147 H Urine WBC 1846 H Ur Squamous Epith Cells 4 Urine Bacteria 3+ A Hyaline Casts 2 H Urine Yeast (Budding) Present A Ur Culture Indicated? Yes Coccidioides IgM Ab Negative 08/18/24 04:38 WBC 8.8 RBC 4.89 Hgb 12.9 L Hct 40.5 L MCV 83 MCH 26.4 MCHC 31.9 RDW Std Deviation 47.9 H Plt Count 277 D Neut % (Auto) 78 Lymph % (Auto) 14 [place] % (Auto) 7 Eos % (Auto) 0 Baso % (Auto) 1 Neut # (Auto) 6.9 Lymph # (Auto) 1.2 [place] # (Auto) 0.6 Eos # (Auto) 0.0 Baso # (Auto) 0.0 Immature Gran # (Auto) 0.03 H Absolute Nucleated RBC 0.00 Immature Gran % 0 Nucleated RBC % 0 PT INR APTT Sodium 144 Potassium 3.4 D Chloride 109 H Carbon Dioxide 21.3 Anion Gap 14 BUN 15 Creatinine 0.5 L Estim Creat Clear Calc 143.8 eGFR > 60 BUN/Creatinine Ratio 30 H Glucose 87 Calculated Osmolality 286 Calcium 9.2 Corrected Calcium 9.3 Phosphorus 3.6 Magnesium 1.9 Total Bilirubin 0.6 AST 11 ALT < 7 L Alkaline Phosphatase 78 Lactate Dehydrogenase Total Protein 7.2 Albumin 3.9 Globulin 3.3 Albumin/Globulin Ratio 1.2 Lipase TSH Ur Collection Type Urine Color Urine Clarity Urine pH Ur Specific [place] Urine Protein Urine Glucose (UA) Urine Ketones Urine Blood Urine Nitrite Urine Bilirubin Urine Urobilinogen (Auto) Ur Leukocyte Esterase Urine RBC Urine WBC Ur Squamous Epith Cells Urine Bacteria Hyaline Casts Urine Yeast (Budding) Ur Culture Indicated? Coccidioides IgM Ab Quality Measures Quality Measures none Assessment & Plan Assessment Current Active Medications: Generic Name Dose Route Start Last Admin Trade Name Freq PRN Reason Stop Dose Admin Acetaminophen 650 mg 08/17/24 23:36 Acetaminophen 325 Mg Tablet PO 09/16/24 23:35 Q6H PRN Fever >101.5 Albuterol/Ipratropium 3 ml 08/18/24 01:00 08/18/24 12:29 Albuterol/Ipratropium (Duoneb) Rt Clarissa 3 Ml Nebu INH 09/17/24 00:59 3 ml Q6HRRT ANGEL Administration Azithromycin 250 mg 08/18/24 09:00 08/18/24 09:24 Azithromycin 250 Mg Tablet PO 08/25/24 08:59 250 mg QDAY ANGEL Administration Erythromycin 1 gm 08/17/24 23:45 08/18/24 06:16 Erythromycin Op Oint 0.5% 1 Gm Packet RIGHT EYE 09/16/24 23:44 1 gm QID ANGEL Administration Heparin Sodium (Porcine) 5,000 unit 08/17/24 23:45 08/18/24 06:15 Heparin Sod Inj 5000 Unit/Ml Vial SC 08/31/24 23:44 5,000 unit Q8HR ANGEL Administration Sodium Chloride 1,000 mls @ 75 mls/hr 08/17/24 23:45 08/18/24 01:55 Ns IV 09/16/24 23:44 75 mls/hr .[id number] ANGEL Administration Ceftriaxone Sodium 1,000 mg/ 50 mls @ 100 mls/hr 08/19/24 09:00 Sodium Chloride IV 08/26/24 08:59 QDAY ANGEL Levetiracetam 500 mg 08/18/24 09:30 08/18/24 11:48 Levetiracetam Liqd 500 Mg/5 Ml Udc GT 04/17/25 09:29 500 mg BID ANGEL Administration Methadone HCl 20 mg 08/18/24 09:45 08/18/24 11:47 Methadone Hcl 10 Mg Tablet PO 08/23/24 09:44 20 mg Q8H ANGEL Administration Protocol Mineral Oil 30 ml 08/17/24 23:45 Mineral Oil 30 Ml Udc W[place] 09/16/24 23:44 BID ANGEL Ondansetron HCl 4 mg 08/17/24 23:36 Ondansetron Inj 2 Mg/Ml Inj 2 Ml IV 09/16/24 23:35 Q6H PRN NAUSEA OR VOMITING Protocol Pantoprazole Sodium 40 mg 08/18/24 09:00 08/18/24 09:24 Pantoprazole Inj 40 Mg Vial IVP 09/17/24 08:59 40 mg QDAY ANGEL Administration Plan The patient is a 44-year-old male patient with past medical history of quadriplegia, seizures, status post PEG tube placement, suprapubic catheter, chronic decubitus ulcer was brought to the ED from SNF due to due to altered mental status and fever. Patient at baseline is verbal and oriented x 3 however at the facility he was noticed to have had 2 episodes of fever in in the past 2 days. He also noticed to be less talkative and not responsive to the nursing facility staff. Patient was admitted for treatment of sepsis secondary to UTI and pneumonia. #Acute metabolic encephalopathy secondary to UTI #Acute UTI #Pneumonia Patient with chronic suprapubic catheter, presented with tachycardia, he spiked fever at the nursing facility, is tachycardic with heart rate of 112, His CBC was only significant for platelet count of 135, BMP showed lactic acid normal of 1.3, normal electrolytes, normal lipase and negative procalcitonin however his urine analysis was dark orange, turbid, with positive ketones, proteins and blood, it was positive for WBCs more than 1800, positive for bacteria and yeast. Chest x-ray showed early base pneumonia, Head CT was negative for any hemorrhage or mass effect, CT abdomen and pelvis showed bilateral calculi however there was no obstruction and no hydronephrosis, also showed cystitis. COVID, flu, RSV all are negative Plan ? Ceftriaxone and azithromycin for both pneumonia and UTI ? Oxygen as needed ? MRSA screening ? Urine and blood cultures pending ? Follow-up on the cocci screening. #Right-sided conjunctivitis Patient has red discoloration on the right eye with purulent discharge, no itching Plan ? Erythromycin ophthalmic ointment 4 times daily ? Eye care daily #Severe constipation #Proctitis CT abdomen and pelvis showed severe stool impaction, appears to be compressing the urinary bladder. Associated with proctitis Patient is bedridden, noticed some of his meds could be narcotics which may lead to stool impaction At this time the patient was mildly dehydrated we will hold on osmotic laxatives at this time decrease the risk of worsening his dehydration Plan ? Mineral oil enema twice daily ? MiraLAX daily ? Consider manual disimpaction if needed #History of seizure disorder Plan ? Keppra 500 twice daily #History of quadriplegia status post PEG tube Plan ? Dietitian consulted ? Maintenance IV fluid 75 mL/h Hospital Maintenance: FEN: tube feeds DVT ppx: Heparin subcu GI ppx: Protonix IV lines: PIV Moyer: Suprapubic catheter Code status: Full code Dispo: Med/tele Plan of care discussed with attending Dr. Meyers, PGY-[address] Kenyon and PGY-[address] Gaxiola. Radha Oliveira MD, PGY 1. Attending Provider Attestation/Addendum I reviewed labs, imaging, EKG, home medications and prior available records. Face to face evaluation was performed by me. I have personally examined the patient and discussed assessment and plan with the IM team. I reviewed the resident note and agree with the plan with exceptions as below. Please refer to my addendum note for the same date
--- NOTE | 2024-08-18 17:31 | PC.DIETICIAN ---
Dietitian consult:Glucerna 1.2 start at 20ml/hr via G tube by pump and increase as tolerated by 10ml Q 8hrs to goal of 60ml/hr x 24hrs via G tube by pump to provide: 1440ml total vol, 1728kcal, 86g pro, 1159ml FW, flush with 160ml Q 6hrs if no IVF or per MD. Thank you
[2024-08-18] MEDS: ACETAMINOPHEN 325 MG TABLET 650 MG PO (20:37)
[2024-08-18] MEDS: MINERAL OIL 30 ML UDC PR (22:56)
[2024-08-19] VITALS (17 sets, daily range): BP systolic 123–130; BP diastolic 77–94; PULSE 62–128; RESP 16–36; TEMP 36.3–37; O2SAT 92–100
[2024-08-19] MEDS: ALBUTEROL/IPRATROPIUM (Duoneb) RT SOL 3 ML NEBU INH ×3 (00:47→18:34)
[2024-08-19] MEDS: METHADONE HCL 10 MG TABLET 20 MG PO ×3 (01:33→18:05)
[2024-08-19] MEDS: SODIUM CHLORIDE 0.9% 1000 ML 1,000 ML 75 ML IV (05:38)
[2024-08-19] MEDS: Erythromycin Op Oint 0.5% 1 GM PACKET RIGHT EYE ×4 (05:38→21:22)
[2024-08-19] MEDS: HEPARIN SOD INJ 5000 UNIT/ML VIAL SC ×3 (05:38→21:22)
[2024-08-19 05:59] LABS: Basophils % (Auto) 0 % (0-2.5); Eosinophils % (Auto) 0 % (0-10); Hematocrit 39.4 % (41.0-53.0); Hemoglobin 12.4 g/dL (13.5-16.0); Immature Granulocytes % (Auto) 0 % (0-0); Immature Granulocytes Auto 0.06 Thou/mm3 (0.00-0.00); Lymphocytes # (Auto) 1.3 Thou/mm3 (1.0-4.8); Lymphocytes % (Auto) 9 % (10-50); Mean Corpuscular HGB Conc 31.5 g/dl (31.0-37.0); Mean Corpuscular Hemoglobin 26.8 pg (25.0-35.0); Mean Corpuscular Volume 85 fL (80-100); Monocytes # (Auto) 0.8 Thou/mm3 (0.0-0.8); Monocytes % (Auto) 5 % (0-12); Neutrophils # (Auto) 12.9 Thou/mm3 (1.8-7.7); Neutrophils % (Auto) 86 % (37-80); Nucleated Red Blood Cell % 0 /100 WBC (0); Platelet Count 234 Thou/mm3 (140-440); RDW Standard Deviation 49.3 fL (35.1-43.9); Red Blood Count 4.63 Miln/mm3 (4.50-5.90); White Blood Count 15.1 Thou/mm3 (3.8-10.6)
[2024-08-19 06:46] LABS: Alanine Aminotransferase < 7 U/L (10-49); Albumin, Serum 3.4 gm/dL (3.5-5.0); Albumin/Globulin Ratio 1.2 (1.2-2.2); Alkaline Phosphatase 66 U/L (46-116); Anion Gap 13 (7-16); Aspartate Amino Transferase < 8 U/L (0-34); BUN/Creatinine Ratio 24 Ratio (12-20); Bilirubin,Total 0.7 mg/dL (0.3-1.2); Blood Urea Nitrogen 12 mg/dL (9-23); Calcium 7.9 mg/dL (8.3-10.6); Calcium (Corrected) 8.4 mg/dL (8.5-10.1); Carbon Dioxide 20.5 mMol/L (20.0-31.0); Chloride 114 mMol/L (98-107); Creatinine (Component) 0.5 mg/dL (0.6-1.3); Estimated Creatinine Clearance 151.3 mL/min (>60); Globulin 2.8 gm/dL (2.3-3.5); Glucose 102 mg/dL (74-106); Magnesium 1.7 mg/dL (1.6-2.6); Osmolality,Calculated 292 (275-295); Phosphorous 2.2 mg/dL (2.4-5.1); Potassium 3.4 mMol/L (3.4-5.1); Sodium 147 mMol/L (136-145); Total Protein 6.2 gm/dL (5.7-8.2); eGFR > 60 See Note
[2024-08-19] MEDS: levETIRAcetam LIQD 500 MG/5 ML UDC GT ×2 (08:19→21:22)
[2024-08-19] MEDS: PANTOPRAZOLE INJ 40 MG VIAL IVP (08:19)
[2024-08-19] MEDS: cefTRIAXone 1,000 MG in SODIUM CHLORIDE 0.9% (Popper) 50 ML 100 MG IV (08:20)
[2024-08-19] MEDS: AZITHROMYCIN 250 MG TABLET PO (08:20)
[2024-08-19] MEDS: ACETAMINOPHEN 325 MG TABLET 650 MG PO (11:45)
[2024-08-19 13:10] LABS: Cocci Serology, IgG Negative (Negative)
--- NOTE | 2024-08-19 15:59 | ESPR_ITS ---
<Statement entered by Jess Kenyon MD - 08/20/24 16:19> Patient was seen and examined by me personally. I have directly supervised and reviewed documentation by the team resident and agree with its findings with any exceptions or additional findings as below. Plan of care was discussed with the attending, Dr. Merino. Patient was still altered this morning, repeating many phrases and not able to answer any questions appropriately. He was slightly more alert today. However patient had increased O2 requirements and was now seen on Hi-Flow at 30L, 60 FiO2. Will continue IV ceftriaxone pending final cultures. Patient's decision maker and uncle was contacted regarding goals of care and code status discussion as the patient remains full code but overall prognosis and quality of life is poor. Uncle stated that he will deliberate with family. Jess Kenyon, PGY-2 Documentation for date of: 08/19/24 Subjective Subjective Interval history: Patient was seen and examined by the bedside. No acute overnight events. Patient's mental status continues to be altered. He looks a little bit more alert today, but is not able to answer questions, keeps repeating the same phrases. He had a fever of 100.7 overnight. Continues to receive antibiotics. His oxygen requirements are increasing, he is on the high flow 30 L, FiO2 60. Had a conversation with the patient's uncle, Roland Bustamante who is the decision- maker, gave him an update regarding the plan of care and discussed with him the goals of care in the setting of the worsening of the condition. He was given information regarding comfort care. He confirmed that the patient switched from the [facility] subacute facility to [facility] with hospice care. He reported that he would like to discuss the plan of care with the family. Will have a repeat discussion later. Will continue to antibiotics, blood and urine cultures are pending. Exam Vital Signs Temp Pulse Resp BP Pulse Ox O2 Del Method O2 Flow Rate 98.0 F 93 22 H 128/77 100 Oxy Mask 30 08/19/24 11:56 08/19/24 15:52 08/19/24 15:52 08/19/24 11:56 08/19/24 15:52 08/19/24 11:56 08/19/24 15:52 FiO2 60 08/19/24 15:52 Narrative Exam Gen: Chronically ill-appearing emaciated man. HEENT: NCAT, PERRLA, EOMI, MMM, right-sided injected conjunctiva with purulent discharge. CVS: normal S1 and S2. RRR. No M/R/G. Resp: CTA B/L. No rhonchi, rales, crackles or wheezing. Abd: soft, non-tender, non-distended. BS+ in all 4 quadrants. MSK: Good ROM in BUE & BLE. No edema or rash. Neuro: CN II-XII grossly intact. Tetraplegia. Alert and oriented x0. Psych: Does not answer the questions, speech is uncomprehensible. Objective Labs 08/20/24 04:53 08/20/24 04:53 Labs: Laboratory Results - last 24 hr 08/18/24 08/19/24 00:06 05:12 WBC 15.1 H D RBC 4.63 Hgb 12.4 L Hct 39.4 L MCV 85 MCH 26.8 MCHC 31.5 RDW Std Deviation 49.3 H Plt Count 234 D Neut % (Auto) 86 H Lymph % (Auto) 9 L [place] % (Auto) 5 Eos % (Auto) 0 Baso % (Auto) 0 Neut # (Auto) 12.9 H Lymph # (Auto) 1.3 [place] # (Auto) 0.8 Eos # (Auto) 0.0 Baso # (Auto) 0.0 Immature Gran # (Auto) 0.06 H Absolute Nucleated RBC 0.00 Immature Gran % 0 Nucleated RBC % 0 Sodium 147 H Potassium 3.4 Chloride 114 H Carbon Dioxide 20.5 Anion Gap 13 BUN 12 Creatinine 0.5 L Estim Creat Clear Calc 151.3 eGFR > 60 BUN/Creatinine Ratio 24 H Glucose 102 Calculated Osmolality 292 Calcium 7.9 L Corrected Calcium 8.4 L Phosphorus 2.2 L Magnesium 1.7 Total Bilirubin 0.7 AST < 8 ALT < 7 L Alkaline Phosphatase 66 Total Protein 6.2 Albumin 3.4 L D Globulin 2.8 Albumin/Globulin Ratio 1.2 Coccidioides IgG Ab Negative Quality Measures Quality Measures VTE prophylaxis Assessment & Plan Assessment Current Active Medications: Generic Name Dose Route Start Last Admin Trade Name Freq PRN Reason Stop Dose Admin Acetaminophen 650 mg 08/17/24 23:36 08/19/24 11:45 Acetaminophen 325 Mg Tablet PO 09/16/24 23:35 650 mg Q6H PRN Administration Fever >101.5 Protocol Albuterol/Ipratropium 3 ml 08/18/24 01:00 08/19/24 13:11 Albuterol/Ipratropium (Duoneb) Rt Clarissa 3 Ml Nebu INH 09/17/24 00:59 Not Given Q6HRRT ANGEL Azithromycin 250 mg 08/18/24 09:00 08/19/24 08:20 Azithromycin 250 Mg Tablet PO 08/25/24 08:59 250 mg QDAY ANGEL Administration Erythromycin 1 gm 08/17/24 23:45 08/19/24 11:45 Erythromycin Op Oint 0.5% 1 Gm Packet RIGHT EYE 09/16/24 23:44 1 gm QID ANGEL Administration Heparin Sodium (Porcine) 5,000 unit 08/17/24 23:45 08/19/24 14:32 Heparin Sod Inj 5000 Unit/Ml Vial SC 08/31/24 23:44 5,000 unit Q8HR ANGEL Administration Ceftriaxone Sodium 1,000 mg/ 50 mls @ 100 mls/hr 08/19/24 09:00 08/19/24 08:20 Sodium Chloride IV 08/26/24 08:59 100 mls/hr QDAY ANGEL Administration Levetiracetam 500 mg 08/18/24 09:30 08/19/24 08:19 Levetiracetam Liqd 500 Mg/5 Ml Udc GT 09/17/24 09:29 500 mg BID ANGEL Administration Methadone HCl 20 mg 08/18/24 09:45 08/19/24 08:51 Methadone Hcl 10 Mg Tablet PO 08/23/24 09:44 20 mg Q8H ANGEL Administration Protocol Mineral Oil 30 ml 08/19/24 09:54 Mineral Oil 30 Ml Udc NE 09/16/24 23:44 BID PRN Constipation Ondansetron HCl 4 mg 08/17/24 23:36 Ondansetron Inj 2 Mg/Ml Inj 2 Ml IV 09/16/24 23:35 Q6H PRN NAUSEA OR VOMITING Protocol Pantoprazole Sodium 40 mg 08/18/24 09:00 08/19/24 08:19 Pantoprazole Inj 40 Mg Vial IVP 09/17/24 08:59 40 mg QDAY ANGEL Administration Polyethylene Glycol 17 gm 08/20/24 09:00 Polyethylene Glycol 17 Gm Packet PO 04/19/25 08:59 QDAY ANGEL Plan The patient is a 44-year-old male patient with past medical history of quadriplegia, seizures, status post PEG tube placement, suprapubic catheter, chronic decubitus ulcer was brought to the ED from SNF due to due to altered mental status and fever. Patient at baseline is verbal and oriented x 3 however at the facility he was noticed to have had 2 episodes of fever in in the past 2 days. He also noticed to be less talkative and not responsive to the nursing facility staff. Patient was admitted for treatment of sepsis secondary to UTI and pneumonia. #Acute metabolic encephalopathy secondary to UTI #Acute UTI #Pneumonia Patient with chronic suprapubic catheter, presented with tachycardia, he spiked fever at the nursing facility, is tachycardic with heart rate of 112, His CBC was only significant for platelet count of 135, BMP showed lactic acid normal of 1.3, normal electrolytes, normal lipase and negative procalcitonin however his urine analysis was dark orange, turbid, with positive ketones, proteins and blood, it was positive for WBCs more than 1800, positive for bacteria and yeast. Chest x-ray showed early base pneumonia, Head CT was negative for any hemorrhage or mass effect, CT abdomen and pelvis showed bilateral calculi however there was no obstruction and no hydronephrosis, also showed cystitis. COVID, flu, RSV all are negative Cocci serology negative Plan ? Ceftriaxone and azithromycin for both pneumonia and UTI ? Oxygen as needed ? MRSA screening ? Urine culture preliminary grew 2 Gram negative rods which is consistent to previous cultures and could be due to colonization - Blood cultures preliminary negative #Right-sided conjunctivitis Patient has red discoloration on the right eye with purulent discharge, no itching Plan ? Erythromycin ophthalmic ointment 4 times daily ? Eye care daily #Severe constipation, improving #Proctitis CT abdomen and pelvis showed severe stool impaction, appears to be compressing the urinary bladder. Associated with proctitis Patient is bedridden, noticed some of his meds could be narcotics which may lead to stool impaction At this time the patient was mildly dehydrated we will hold on osmotic laxatives at this time decrease the risk of worsening his dehydration 08/19/2024: Patient had a bowel movement after the miralax and the mineral oil enema. Will continue with Miralax for now. Plan ? Mineral oil enema twice daily PRN ? MiraLAX daily ? Consider manual disimpaction if needed #History of seizure disorder Plan ? Keppra 500 twice daily #History of quadriplegia status post PEG tube Plan ? Dietitian consulted ? Glycerna with free water flushes #Chronic pain Previously held methadone, resuming it as he is more awake. Plan: - continue methadone Hospital Maintenance: FEN: tube feeds DVT ppx: Heparin subcu GI ppx: Protonix IV lines: PIV Moyer: Suprapubic catheter Code status: Full code Dispo: Med/tele Plan of care discussed with attending Dr. Merino, PGY-[address] Kenyon and PGY-[address] Gaxiola. Radha Oliveira MD, PGY 1. Attending Provider Attestation/Addendum Toni, Nyla Merino, , attest that I was physically present for the pascual portions of the service and evaluated the patient with the resident and I reviewed and discussed the case with the resident and agree with the resident's findings and plans of care as documented above Patient seen and evaluated this AM. He is not at baseline per nursing. Patient is staring at the wall and does not answer questions appropriately. Patient states you are dreaming . Patient otherwise will shake or nod his head in response to some questions, that do not appear appropriate either. Patient does not follow commands. No pain to palpation of abdomen. PEG tube appears clean, dry and intact. Pending final urine cultures and sensitivities.
--- NOTE | 2024-08-19 16:11 | PC.SS ---
Follow up note: Blood/urine cultures pending. IV antibiotic. Pt will return to [facility] with [facility].
--- NOTE | 2024-08-19 16:29 | PC.SS ---
Hospice referral submitted on [employer] [facility] platform. Preferred agency [facility]. Awaiting response.
[2024-08-20] VITALS (16 sets, daily range): BP systolic 109–142; BP diastolic 68–86; PULSE 68–110; RESP 15–100; TEMP 35.9–38.9; O2SAT 95–100; BMI 17.9
[2024-08-20] MEDS: ALBUTEROL/IPRATROPIUM (Duoneb) RT SOL 3 ML NEBU INH ×3 (00:44→19:17)
[2024-08-20] MEDS: METHADONE HCL 10 MG TABLET 20 MG PO ×3 (01:50→18:09)
[2024-08-20] MEDS: Erythromycin Op Oint 0.5% 1 GM PACKET RIGHT EYE ×4 (05:10→21:42)
[2024-08-20] MEDS: HEPARIN SOD INJ 5000 UNIT/ML VIAL SC ×3 (05:10→21:41)
[2024-08-20] MEDS: ACETAMINOPHEN 325 MG TABLET 650 MG PO ×2 (05:33→21:43)
[2024-08-20 06:03] LABS: Basophils % (Auto) 0 % (0-2.5); Eosinophils % (Auto) 0 % (0-10); Hematocrit 42.7 % (41.0-53.0); Hemoglobin 13.1 g/dL (13.5-16.0); Immature Granulocytes % (Auto) 0 % (0-0); Immature Granulocytes Auto 0.04 Thou/mm3 (0.00-0.00); Lymphocytes % (Auto) 16 % (10-50); Mean Corpuscular HGB Conc 30.7 g/dl (31.0-37.0); Mean Corpuscular Hemoglobin 26.3 pg (25.0-35.0); Mean Corpuscular Volume 86 fL (80-100); Monocytes # (Auto) 0.7 Thou/mm3 (0.0-0.8); Monocytes % (Auto) 5 % (0-12); Neutrophils % (Auto) 79 % (37-80); Nucleated Red Blood Cell % 0 /100 WBC (0); Platelet Count 208 Thou/mm3 (140-440); RDW Standard Deviation 50.4 fL (35.1-43.9); Red Blood Count 4.98 Miln/mm3 (4.50-5.90); White Blood Count 12.7 Thou/mm3 (3.8-10.6)
[2024-08-20 06:47] LABS: Alanine Aminotransferase < 7 U/L (10-49); Albumin, Serum 3.7 gm/dL (3.5-5.0); Albumin/Globulin Ratio 1.2 (1.2-2.2); Alkaline Phosphatase 64 U/L (46-116); Anion Gap 11 (7-16); BUN/Creatinine Ratio 30 Ratio (12-20); Bilirubin,Total 0.5 mg/dL (0.3-1.2); Blood Urea Nitrogen 15 mg/dL (9-23); Calcium 8.6 mg/dL (8.3-10.6); Calcium (Corrected) 8.8 mg/dL (8.5-10.1); Carbon Dioxide 26.3 mMol/L (20.0-31.0); Chloride 111 mMol/L (98-107); Creatinine (Component) 0.5 mg/dL (0.6-1.3); Estimated Creatinine Clearance 151.2 mL/min (>60); Globulin 3.1 gm/dL (2.3-3.5); Glucose 115 mg/dL (74-106); Magnesium 2.1 mg/dL (1.6-2.6); Osmolality,Calculated 296 (275-295); Phosphorous 2.1 mg/dL (2.4-5.1); Potassium 3.6 mMol/L (3.4-5.1); Sodium 148 mMol/L (136-145); Total Protein 6.8 gm/dL (5.7-8.2); eGFR > 60 See Note
[2024-08-20 06:54] LABS: Aspartate Amino Transferase < 10 U/L (0-34)
[2024-08-20] MEDS: levETIRAcetam LIQD 500 MG/5 ML UDC GT ×2 (08:55→21:41)
[2024-08-20] MEDS: cefTRIAXone 1,000 MG in SODIUM CHLORIDE 0.9% (Popper) 50 ML 100 MG IV (08:56)
[2024-08-20] MEDS: PANTOPRAZOLE INJ 40 MG VIAL IVP (08:56)
[2024-08-20] MEDS: POLYETHYLENE GLYCOL 17 GM PACKET PO (08:57)
[2024-08-20] MEDS: AZITHROMYCIN 250 MG TABLET PO (08:57)
[2024-08-20 12:24] LABS: Ammonia 12 uMol/L (11-32)
[2024-08-20] MEDS: PIPER/TAZO 3.375 GM PREMIX 3.375 GM/50 ML BAG IV ×2 (13:40→21:42)
--- NOTE | 2024-08-20 15:51 | ESPR_ITS ---
<Statement entered by Jess Kenyon MD - 08/21/24 10:40> Patient was seen and examined by me personally. I have directly supervised and reviewed documentation by the team resident and agree with its findings with any exceptions or additional findings as below. Plan of care was discussed with the attending, Dr. Merino. Patient still altered, unable to follow any commands or respond to questions appropriately, repeating phrases. He is on Hi-Flow nasal cannula. Blood cultures from 08/17 remain negative post-48 hours. Urine cultures speciated Providencia stuartii and ESBL Klebsiella pneumoniae, showing resistance to ceftriaxone which the patient was on, and sensitivity to Zosyn, thus he was switched over to Zosyn. Jess Kenyon, PGY-2 Documentation for date of: 08/20/24 Subjective Subjective Interval history: Patient continues to be altered, repeats phrases, does not answer questions or follow commands, overnight had a fever 102 F, urine culture grew Klebsiella pneumonia ESBL, Providencia stuartii both sensitive to Zosyn, ertapenem and imipenem. Empiric antibiotics were discontinued and the patient was started on Zosyn. Continues to be on high flow, was weaned down to 20 L, FiO2 30%. Exam Vital Signs Temp Pulse Resp BP Pulse Ox O2 Del Method O2 Flow Rate 96.6 F L 68 15 109/68 98 Oxy Mask 18 08/20/24 12:00 08/20/24 12:00 08/20/24 12:00 08/20/24 12:00 08/20/24 12:00 08/20/24 08:00 08/20/24 08:00 FiO2 18 08/20/24 08:00 Narrative Exam Gen: Chronically ill-appearing emaciated man. HEENT: NCAT, PERRLA, EOMI, MMM, right-sided injected conjunctiva with purulent discharge. CVS: normal S1 and S2. RRR. No M/R/G. Resp: CTA B/L. No rhonchi, rales, crackles or wheezing. Abd: soft, non-tender, non-distended. BS+ in all 4 quadrants. MSK: Good ROM in BUE & BLE. No edema or rash. Neuro: CN II-XII grossly intact. Tetraplegia. Alert and oriented x0. Psych: Does not answer the questions, speech is uncomprehensible. Objective Labs 08/21/24 06:28 08/21/24 04:36 Labs: Laboratory Results - last 24 hr 08/20/24 08/20/24 04:53 11:50 WBC 12.7 H RBC 4.98 Hgb 13.1 L Hct 42.7 MCV 86 MCH 26.3 MCHC 30.7 L RDW Std Deviation 50.4 H Plt Count 208 Neut % (Auto) 79 Lymph % (Auto) 16 [place] % (Auto) 5 Eos % (Auto) 0 Baso % (Auto) 0 Neut # (Auto) 10.0 H Lymph # (Auto) 2.0 [place] # (Auto) 0.7 Eos # (Auto) 0.0 Baso # (Auto) 0.0 Immature Gran # (Auto) 0.04 H Absolute Nucleated RBC 0.00 Immature Gran % 0 Nucleated RBC % 0 Sodium 148 H Potassium 3.6 Chloride 111 H Carbon Dioxide 26.3 Anion Gap 11 BUN 15 Creatinine 0.5 L Estim Creat Clear Calc 151.2 eGFR > 60 BUN/Creatinine Ratio 30 H Glucose 115 H Calculated Osmolality 296 H Calcium 8.6 Corrected Calcium 8.8 Phosphorus 2.1 L Magnesium 2.1 Total Bilirubin 0.5 AST < 10 ALT < 7 L Alkaline Phosphatase 64 Ammonia 12 Total Protein 6.8 Albumin 3.7 Globulin 3.1 Albumin/Globulin Ratio 1.2 Quality Measures Quality Measures VTE prophylaxis Assessment & Plan Assessment Current Active Medications: Generic Name Dose Route Start Last Admin Trade Name Freq PRN Reason Stop Dose Admin Acetaminophen 650 mg 08/20/24 08:47 Acetaminophen 325 Mg Tablet PO 09/16/24 23:35 Q6H PRN Fever >100.3 or pain 1-3 Protocol Albuterol/Ipratropium 3 ml 08/18/24 01:00 08/20/24 07:34 Albuterol/Ipratropium (Duoneb) Rt Clarissa 3 Ml Nebu INH 09/17/24 00:59 3 ml Q6HRRT ANGEL Administration Erythromycin 1 gm 08/17/24 23:45 08/20/24 11:09 Erythromycin Op Oint 0.5% 1 Gm Packet RIGHT EYE 09/16/24 23:44 1 gm QID ANGEL Administration Heparin Sodium (Porcine) 5,000 unit 08/17/24 23:45 08/20/24 13:40 Heparin Sod Inj 5000 Unit/Ml Vial SC 08/31/24 23:44 5,000 unit Q8HR ANGEL Administration Piperacillin/Tazobactam/Dextrose 3.375 gm in 50 mls @ 12.5 mls/hr 08/20/24 14:00 08/20/24 13:40 Zosyn IV 08/27/24 13:59 12.5 mls/hr Q8HR ANGEL Administration Levetiracetam 500 mg 08/18/24 09:30 08/20/24 08:55 Levetiracetam Liqd 500 Mg/5 Ml Udc GT 09/17/24 09:29 500 mg BID ANEGL Administration Methadone HCl 20 mg 08/18/24 09:45 08/20/24 08:55 Methadone Hcl 10 Mg Tablet PO 08/23/24 09:44 20 mg Q8H ANGEL Administration Protocol Mineral Oil 30 ml 08/19/24 09:54 Mineral Oil 30 Ml Udc MA 09/16/24 23:44 BID PRN Constipation Ondansetron HCl 4 mg 08/17/24 23:36 Ondansetron Inj 2 Mg/Ml Inj 2 Ml IV 09/16/24 23:35 Q6H PRN NAUSEA OR VOMITING Protocol Pantoprazole Sodium 40 mg 08/18/24 09:00 08/20/24 08:56 Pantoprazole Inj 40 Mg Vial IVP 09/17/24 08:59 40 mg QDAY ANGEL Administration Polyethylene Glycol 17 gm 08/20/24 09:00 08/20/24 08:57 Polyethylene Glycol 17 Gm Packet PO 09/19/24 08:59 17 gm QDAY ANGEL Administration Plan The patient is a 44-year-old male patient with past medical history of quadriplegia, seizures, status post PEG tube placement, suprapubic catheter, chronic decubitus ulcer was brought to the ED from SNF due to due to altered mental status and fever. Patient at baseline is verbal and oriented x 3 however at the facility he was noticed to have had 2 episodes of fever in in the past 2 days. He also noticed to be less talkative and not responsive to the nursing facility staff. Patient was admitted for treatment of sepsis secondary to UTI and pneumonia. #Acute metabolic encephalopathy secondary to UTI #Acute UTI #Pneumonia Patient with chronic suprapubic catheter, presented with tachycardia, he spiked fever at the nursing facility, is tachycardic with heart rate of 112, His CBC was only significant for platelet count of 135, BMP showed lactic acid normal of 1.3, normal electrolytes, normal lipase and negative procalcitonin however his urine analysis was dark orange, turbid, with positive ketones, proteins and blood, it was positive for WBCs more than 1800, positive for bacteria and yeast. Chest x-ray showed early base pneumonia, Head CT was negative for any hemorrhage or mass effect, CT abdomen and pelvis showed bilateral calculi however there was no obstruction and no hydronephrosis, also showed cystitis. COVID, flu, RSV all are negative Cocci serology negative Plan ? Discontinued Ceftriaxone and azithromycin for both pneumonia and UTI 08/20/24 ?Zosyn 3.375 every 6 hours 08/20/2024 ? Oxygen as needed ? MRSA screening ? Urine culture grew Klebsiella pneumonia ESBL, Providencia stuartii both sensitive to Zosyn, ertapenem and imipenem. - Blood cultures preliminary negative #Right-sided conjunctivitis Patient has red discoloration on the right eye with purulent discharge, no itching Plan ? Erythromycin ophthalmic ointment 4 times daily ? Eye care daily #Severe constipation, improving #Proctitis CT abdomen and pelvis showed severe stool impaction, appears to be compressing the urinary bladder. Associated with proctitis Patient is bedridden, noticed some of his meds could be narcotics which may lead to stool impaction At this time the patient was mildly dehydrated we will hold on osmotic laxatives at this time decrease the risk of worsening his dehydration 08/19/2024: Patient had a bowel movement after the miralax and the mineral oil enema. Will continue with Miralax for now. Plan ? Mineral oil enema twice daily PRN ? MiraLAX daily ? Consider manual disimpaction if needed #History of seizure disorder Plan ? Keppra 500 twice daily #History of quadriplegia status post PEG tube Plan ? Dietitian consulted ? Glycerna with free water flushes #Chronic pain Previously held methadone, resuming it as he is more awake. Plan: - continue methadone Hospital Maintenance: FEN: tube feeds DVT ppx: Heparin subcu GI ppx: Protonix IV lines: PIV Moyer: Suprapubic catheter Code status: Full code Dispo: Med/tele Plan of care discussed with attending Dr. Merino, PGY-[address] Kenyon and PGY-[address] Gaxiola. Radha Oliveira MD, PGY 1. Attending Provider Attestation/Addendum I, Nyla Merino DO, attest that I was physically present for the pascual portions of the service and evaluated the patient with the resident and I reviewed and discussed the case with the resident and agree with the resident's findings and plans of care as documented above Patient seen and evaluated this AM. Patient remains confused, but more interactive and talkative. He is talking about watching tv. However, he is unable to answer questions appropriately. This is not patient's baseline per nursing. Final cultures and sensitivities resulted showing providencia and ESBL Klebsiella, both sensitive to zosyn. Will switch abx to zosyn. Since bacteria was not sensitive to rocephin, may contribute to patient's lack of improvement in mentation. He remains on HFNC. Will continue with IV abx and current management.
[2024-08-21] VITALS (13 sets, daily range): BP systolic 125–141; BP diastolic 75–88; PULSE 73–100; RESP 16–100; TEMP 37–38; O2SAT 91–100; BMI 17.9
[2024-08-21] MEDS: METHADONE HCL 10 MG TABLET 20 MG PO ×3 (01:33→17:38)
[2024-08-21] MEDS: HEPARIN SOD INJ 5000 UNIT/ML VIAL SC ×3 (05:31→21:05)
[2024-08-21] MEDS: Erythromycin Op Oint 0.5% 1 GM PACKET RIGHT EYE ×2 (05:31→20:08)
[2024-08-21] MEDS: PIPER/TAZO 3.375 GM PREMIX 3.375 GM/50 ML BAG IV ×2 (05:31→17:38)
--- NOTE | 2024-08-21 05:48 | PC.NURSE ---
Pt's O2 sat 79 on high flow 28%, 18 L. LENS GRINDING MACHINE OPERATOR called to pt's room.
--- NOTE | 2024-08-21 05:51 | XR_ITS ---
Examination: AP chest single view TECHNIQUE: AP portable upright chest single view. Examination time: August 21, 2024 0503 hours Comparison August 17, 2024 INDICATIONS: Hypoxia rapid response today FINDINGS: Worsening pneumonia right base Normal heart size Mild to moderate vascular congestion. Mild osteopenia. Old left-sided rib fractures. IMPRESSION: Worsening right base pneumonia Partial visualization extensive bilateral renal calculi
[2024-08-21] MEDS: Magnesium Sulfate 2 GM Ivpb 2 GM/50 ML BAG IV (06:05)
--- NOTE | 2024-08-21 06:20 | PD.RESEVENT ---
Documentation for date of: 08/21/24 Event Note Event Note: Around 5:45 AM, rapid response was called for patient for hypoxia. Patient was put on 40 L and 100% of oxygen on high flow, and was still saturating 78%. Patient appeared to be slightly altered. Oxygen saturations were not moving up initially. Sepsis workup was initiated lactate, ABG. Chest x-ray was ordered, feedings were stopped as well. There was concern that patient would continue to deteriorate and may require intubation. Family was contacted in regards to CODE STATUS and further decisions and it was communicated with us to continue with full code measures. We also gave patient magnesium sulfate 2 g given over 30 minutes. Patient's oxygen saturation began to improve throughout the rapid going up to the low 90s. Patient seen and care discussed with my attending physician, Dr. Ghada Skinner, PGY-1
[2024-08-21 06:27] LABS: Base Excess 6 (-3-3); HCO3 32 mEq/L (20-26); O2 Saturation 88 % (91-98); PCO2 54 mmHg (32.0-48.0); pH, Arterial 7.38 (7.35-7.45)
[2024-08-21 06:29] LABS: Alanine Aminotransferase < 7 U/L (10-49); Albumin, Serum 3.5 gm/dL (3.5-5.0); Albumin/Globulin Ratio 1.2 (1.2-2.2); Alkaline Phosphatase 60 U/L (46-116); Anion Gap 8 (7-16); Aspartate Amino Transferase 19 U/L (0-34); BUN/Creatinine Ratio 40 Ratio (12-20); Bilirubin,Total 0.4 mg/dL (0.3-1.2); Blood Urea Nitrogen 16 mg/dL (9-23); Calcium 8.4 mg/dL (8.3-10.6); Calcium (Corrected) 8.8 mg/dL (8.5-10.1); Carbon Dioxide 30.7 mMol/L (20.0-31.0); Chloride 105 mMol/L (98-107); Creatinine (Component) 0.4 mg/dL (0.6-1.3); Globulin 2.9 gm/dL (2.3-3.5); Glucose 98 mg/dL (74-106); Magnesium 2.2 mg/dL (1.6-2.6); Osmolality,Calculated 288 (275-295); Phosphorous 3.2 mg/dL (2.4-5.1); Sodium 144 mMol/L (136-145); Total Protein 6.4 gm/dL (5.7-8.2); eGFR > 60 See Note
[2024-08-21 06:31] LABS: Allen Test Performed/OK; Inspired Oxygen, FIO2 100 %; PO2 55 mmHg (83-108); Puncture Site Site Not Noted
--- NOTE | 2024-08-21 07:12 | PC.NURSE ---
lab called to report that ABG PO2 is 55, Dr. Hargrove was made aware, no new orders for pt at this time.
[2024-08-21] MEDS: ALBUTEROL/IPRATROPIUM (Duoneb) RT SOL 3 ML NEBU INH ×3 (07:26→18:16)
[2024-08-21 08:07] LABS: Basophils # (Auto) 0.1 Thou/mm3 (0.0-0.2); Basophils % (Auto) 0 % (0-2.5); Eosinophils # (Auto) 0.2 Thou/mm3 (0.0-0.5); Eosinophils % (Auto) 2 % (0-10); Hematocrit 42.4 % (41.0-53.0); Hemoglobin 13.3 g/dL (13.5-16.0); Immature Granulocytes % (Auto) 0 % (0-0); Immature Granulocytes Auto 0.03 Thou/mm3 (0.00-0.00); Lymphocytes % (Auto) 18 % (10-50); Mean Corpuscular HGB Conc 31.4 g/dl (31.0-37.0); Mean Corpuscular Hemoglobin 26.9 pg (25.0-35.0); Mean Corpuscular Volume 86 fL (80-100); Monocytes # (Auto) 0.6 Thou/mm3 (0.0-0.8); Monocytes % (Auto) 6 % (0-12); Neutrophils # (Auto) 8.3 Thou/mm3 (1.8-7.7); Neutrophils % (Auto) 74 % (37-80); Nucleated Red Blood Cell % 0 /100 WBC (0); Platelet Count 202 Thou/mm3 (140-440); RDW Standard Deviation 49.8 fL (35.1-43.9); Red Blood Count 4.94 Miln/mm3 (4.50-5.90); White Blood Count 11.2 Thou/mm3 (3.8-10.6)
--- NOTE | 2024-08-21 08:50 | PC.SS ---
Follow up note: Pt had aspiration last night, pt is on high flow O2, physicians will speak with uncle about patients status, and pt will return to [facility] with Hospice Services.
--- NOTE | 2024-08-21 09:21 | PC.NURSE ---
made aware that the pt has no iv access. multiple attempts have been made to gain access to BUE. Still no IV access. ok for RN to place IV in the lower extremities
[2024-08-21] MEDS: levETIRAcetam LIQD 500 MG/5 ML UDC GT ×2 (09:55→20:10)
[2024-08-21] MEDS: PANTOPRAZOLE INJ 40 MG VIAL IVP (09:58)
[2024-08-21] MEDS: POLYETHYLENE GLYCOL 17 GM PACKET PO (09:58)
[2024-08-21] MEDS: VANCOMYCIN/D5W 1,250 MG IVPB 250 ML 120 MG IV (11:45)
[2024-08-21 12:17] LABS: Base Excess 7 (-3-3); HCO3 33 mEq/L (20-26); Inspired Oxygen, FIO2 100 %; O2 Saturation 86 % (91-98); PCO2 53 mmHg (32.0-48.0)
[2024-08-21 12:20] LABS: PO2 52 mmHg (83-108)
[2024-08-21 12:21] LABS: Allen Test Performed/OK; Puncture Site Femoral Artery
--- NOTE | 2024-08-21 16:04 | ESPR_ITS ---
Documentation for date of: 08/21/24 Subjective Subjective Interval history: Overnight patient had a rapid response due to desaturation, was maxed out on room high flow. ABG showed hypercapnia, hypoxia. Chest x-ray showed worsening of right base pneumonia. Received magnesium IV, saturation has improved. In the a.m. patient continued to be maxed out on high flow, saturated well. Family at the bedside, patient has recognize his grandfather but during conversation he refused to answer questions. His uncle was contacted and was given information regarding the plan of care and it was communicated to him that patient's condition is serious and in case of worsening of his condition he would require intubation. He was given information regarding comfort care. He decided to discuss that with the family. On questioning patient himself said yes to the intubation. Will continue to monitor. Exam Vital Signs Temp Pulse Resp BP Pulse Ox O2 Del Method O2 Flow Rate 100.2 F 75 20 141/78 H 100 High Flow Nasal Cannula 40 08/21/24 12:00 08/21/24 13:46 08/21/24 13:46 08/21/24 12:00 08/21/24 13:46 08/21/24 12:00 08/21/24 13:46 FiO2 100 08/21/24 13:46 Narrative Exam Gen: Chronically ill-appearing emaciated man. HEENT: NCAT, PERRLA, EOMI, MMM, right-sided injected conjunctiva. CVS: normal S1 and S2. RRR. No M/R/G. Resp: CTA B/L. No rhonchi, rales, crackles or wheezing. Abd: soft, non-tender, non-distended. BS+ in all 4 quadrants. MSK: Good ROM in BUE & BLE. No edema or rash. Neuro: CN II-XII grossly intact. Tetraplegia. Does not answer questions. Psych: Does not answer the questions. Objective Labs 08/22/24 04:43 08/22/24 04:43 Labs: Laboratory Results - last 24 hr 08/21/24 08/21/24 08/21/24 04:36 06:20 06:28 WBC 11.2 H RBC 4.94 Hgb 13.3 L Hct 42.4 MCV 86 MCH 26.9 MCHC 31.4 RDW Std Deviation 49.8 H Plt Count 202 Neut % (Auto) 74 Lymph % (Auto) 18 [place] % (Auto) 6 Eos % (Auto) 2 Baso % (Auto) 0 Neut # (Auto) 8.3 H Lymph # (Auto) 2.0 [place] # (Auto) 0.6 Eos # (Auto) 0.2 Baso # (Auto) 0.1 Immature Gran # (Auto) 0.03 H Absolute Nucleated RBC 0.00 Immature Gran % 0 Nucleated RBC % 0 Puncture Site Site Not Noted ABG pH 7.38 ABG pCO2 54 H ABG pO2 55 L* ABG HCO3 32 H ABG O2 Saturation 88 L ABG Base Excess 6 H FiO2 100 Sodium 144 Potassium 4.0 Chloride 105 Carbon Dioxide 30.7 Anion Gap 8 BUN 16 Creatinine 0.4 L Estim Creat Clear Calc 189.0 eGFR > 60 BUN/Creatinine Ratio 40 H Glucose 98 Calculated Osmolality 288 Lactic Acid 1.0 Calcium 8.4 Corrected Calcium 8.8 Phosphorus 3.2 Magnesium 2.2 Total Bilirubin 0.4 AST 19 ALT < 7 L Alkaline Phosphatase 60 Total Protein 6.4 Albumin 3.5 Globulin 2.9 Albumin/Globulin Ratio 1.2 08/21/24 11:50 WBC RBC Hgb Hct MCV MCH MCHC RDW Std Deviation Plt Count Neut % (Auto) Lymph % (Auto) [place] % (Auto) Eos % (Auto) Baso % (Auto) Neut # (Auto) Lymph # (Auto) [place] # (Auto) Eos # (Auto) Baso # (Auto) Immature Gran # (Auto) Absolute Nucleated RBC Immature Gran % Nucleated RBC % Puncture Site Femoral Artery ABG pH 7.40 ABG pCO2 53 H ABG pO2 52 L* ABG HCO3 33 H ABG O2 Saturation 86 L ABG Base Excess 7 H FiO2 100 Sodium Potassium Chloride Carbon Dioxide Anion Gap BUN Creatinine Estim Creat Clear Calc eGFR BUN/Creatinine Ratio Glucose Calculated Osmolality Lactic Acid Calcium Corrected Calcium Phosphorus Magnesium Total Bilirubin AST ALT Alkaline Phosphatase Total Protein Albumin Globulin Albumin/Globulin Ratio ABG Interpretation ABG results: 08/21/24 08/21/24 06:20 11:50 ABG pH 7.38 7.40 ABG pCO2 54 H 53 H ABG pO2 55 L* 52 L* ABG HCO3 32 H 33 H ABG O2 Saturation 88 L 86 L ABG Base Excess 6 H 7 H Quality Measures Quality Measures VTE prophylaxis Assessment & Plan Assessment Current Active Medications: Generic Name Dose Route Start Last Admin Trade Name Freq PRN Reason Stop Dose Admin Acetaminophen 650 mg 08/20/24 08:47 08/20/24 21:43 Acetaminophen 325 Mg Tablet PO 09/16/24 23:35 650 mg Q6H PRN Administration Fever >100.3 or pain 1-3 Protocol Albuterol/Ipratropium 3 ml 08/18/24 01:00 08/21/24 13:46 Albuterol/Ipratropium (Duoneb) Rt Clarissa 3 Ml Nebu INH 09/17/24 00:59 3 ml Q6HRRT ANGEL Administration Erythromycin 1 gm 08/17/24 23:45 08/21/24 11:56 Erythromycin Op Oint 0.5% 1 Gm Packet RIGHT EYE 09/16/24 23:44 Not Given QID ANGEL Heparin Sodium (Porcine) 5,000 unit 08/17/24 23:45 08/21/24 05:31 Heparin Sod Inj 5000 Unit/Ml Vial SC 08/31/24 23:44 5,000 unit Q8HR ANGEL Administration Piperacillin/Tazobactam/Dextrose 3.375 gm in 50 mls @ 12.5 mls/hr 08/20/24 14:00 08/21/24 05:31 Zosyn IV 08/27/24 13:59 12.5 mls/hr Q8HR ANGEL Administration Vancomycin/Sodium Chloride 200 mls @ 120 mls/hr 08/21/24 22:00 Vancomycin/Ns 1 Gm Ivpb IV 08/28/24 21:59 Q8HR ANGEL Levetiracetam 500 mg 08/18/24 09:30 08/21/24 09:55 Levetiracetam Liqd 500 Mg/5 Ml Udc GT 09/17/24 09:29 500 mg BID ANGEL Administration Methadone HCl 20 mg 08/18/24 09:45 08/21/24 09:57 Methadone Hcl 10 Mg Tablet PO 08/23/24 09:44 20 mg Q8H ANGEL Administration Protocol Mineral Oil 30 ml 08/19/24 09:54 Mineral Oil 30 Ml Udc CO 09/16/24 23:44 BID PRN Constipation Ondansetron HCl 4 mg 08/17/24 23:36 Ondansetron Inj 2 Mg/Ml Inj 2 Ml IV 09/16/24 23:35 Q6H PRN NAUSEA OR VOMITING Protocol Pantoprazole Sodium 40 mg 08/18/24 09:00 08/21/24 09:58 Pantoprazole Inj 40 Mg Vial IVP 09/17/24 08:59 40 mg QDAY ANGEL Administration Pharmacy Consult 1 each 08/21/24 10:15 Vancomycin Pharmacy To Dose 1 Each Each IV 09/20/24 10:14 QDAY PRN CONSULT Polyethylene Glycol 17 gm 08/20/24 09:00 08/21/24 09:58 Polyethylene Glycol 17 Gm Packet PO 09/19/24 08:59 17 gm QDAY ANGEL Administration Plan The patient is a 44-year-old male patient with past medical history of quadriplegia, seizures, status post PEG tube placement, suprapubic catheter, chronic decubitus ulcer was brought to the ED from SNF due to due to altered mental status and fever. Patient at baseline is verbal and oriented x 3 however at the facility he was noticed to have had 2 episodes of fever in in the past 2 days. He also noticed to be less talkative and not responsive to the nursing facility staff. Patient was admitted for treatment of sepsis secondary to UTI and pneumonia. #Acute metabolic encephalopathy secondary to UTI #Acute UTI #Pneumonia Patient with chronic suprapubic catheter, presented with tachycardia, he spiked fever at the nursing facility, is tachycardic with heart rate of 112, His CBC was only significant for platelet count of 135, BMP showed lactic acid normal of 1.3, normal electrolytes, normal lipase and negative procalcitonin however his urine analysis was dark orange, turbid, with positive ketones, proteins and blood, it was positive for WBCs more than 1800, positive for bacteria and yeast. Chest x-ray showed early base pneumonia, Head CT was negative for any hemorrhage or mass effect, CT abdomen and pelvis showed bilateral calculi however there was no obstruction and no hydronephrosis, also showed cystitis. COVID, flu, RSV all are negative Cocci serology negative Discontinued Ceftriaxone and azithromycin for both pneumonia and UTI 08/20/24 Plan ?Zosyn 3.375 every 6 hours 08/20/2024 ? Oxygen as needed ? MRSA screening ? Urine culture grew Klebsiella pneumonia ESBL, Providencia stuartii both sensitive to Zosyn, ertapenem and imipenem. - Blood cultures preliminary negative - ABG ordered at 19:00 #Right-sided conjunctivitis Patient has red discoloration on the right eye with purulent discharge, no itching Plan ? Erythromycin ophthalmic ointment 4 times daily ? Eye care daily #Severe constipation, improving #Proctitis CT abdomen and pelvis showed severe stool impaction, appears to be compressing the urinary bladder. Associated with proctitis Patient is bedridden, noticed some of his meds could be narcotics which may lead to stool impaction At this time the patient was mildly dehydrated we will hold on osmotic laxatives at this time decrease the risk of worsening his dehydration 08/19/2024: Patient had a bowel movement after the miralax and the mineral oil enema. Will continue with Miralax for now. Plan ? Mineral oil enema twice daily PRN ? MiraLAX daily ? Consider manual disimpaction if needed #History of seizure disorder Plan ? Keppra 500 twice daily #History of quadriplegia status post PEG tube Plan ? Dietitian consulted ? Glycerna with free water flushes #Chronic pain Previously held methadone, resuming it as he is more awake. Plan: - continue methadone Hospital Maintenance: FEN: tube feeds DVT ppx: Heparin subcu GI ppx: Protonix IV lines: PIV Moyer: Suprapubic catheter Code status: Full code Dispo: Med/tele Plan of care discussed with attending Dr. Merino and PGY-[address] Gaxiola. Radha Oliveira MD, PGY 1. -- ATTESTATION: I saw and examined the patient this morning, and I agree with current management stated by the resident. Will continue to monitor patient during their stay. Mr. Watkins is a 44-year-old male with extensive past medical history including PEG tube placement, quadriplegia, seizures as well as chronic pressure ulcers that came in from SNF due to altered mentation and acute hypoxic respiratory failure. Patient had an episode overnight of aspiration pneumonia for which his oxygen requirement has greatly increased. Extensive conversation has been held with patient's Carrie as well as his advocate who is his uncle Robby Watkins about further goals of care with the patient. At this time patient will remain full code and will keep family updated. Prognosis is guarded. Disclaimer: Despite multiple revisions, due to the dictation software being used, the document bellow may not be free of grammatical errors including phonetic/typographic errors. However, this does not deter from our commitment to providing health care in the patient's best interest in mind. Dr. Erik Gaxiola, PGY-3 Attending Provider Attestation/Addendum I, Nyla Merino DO, attest that I was physically present for the pascual portions of the service and evaluated the patient with the resident and I reviewed and discussed the case with the resident and agree with the resident's findings and plans of care as documented above Patient seen and evaluated this AM. His mother in law is at bedside and states that the patient was more alert this morning and seemed to recognize her. However, he now appears to be less responsive to her. Patient is tracking with his eyes and looking around the room as he has been the past few days. Patient had a rapid response overnight due to desaturation. Family was updated regarding condition and maintains full code status. However, patient's uncle would like to be contacted again if patient decompensates to make a final decision regarding intubation. Patient remains on HFNC with FIO2 of 100% and flow of 40L/min. He is saturating 100%. Patient was re-evaluated at 3pm and he was responsive to verbal and tactile stimuli, saturating 100%. Will add vancomycin in addition to zosyn due to worsening right base pneumonia.
--- NOTE | 2024-08-21 20:57 | PC.NURSE ---
AM shift hanged 1400 dose of zosyn late at 1738. SHADIA Cam contacted Marsha from [facility] to retime the next dose at 2200, but Marsha said it is okay to be hanged at 2300.
[2024-08-21] MEDS: VANCOMYCIN/NS 1 GM IVPB 200 ML IV (21:49)
[2024-08-22] VITALS (14 sets, daily range): BP systolic 105–128; BP diastolic 45–91; PULSE 73–91; RESP 16–20; TEMP 37–37.3; O2SAT 95–100; BMI 17.5
[2024-08-22] MEDS: PIPER/TAZO 3.375 GM PREMIX 3.375 GM/50 ML BAG IV ×4 (00:18→21:08)
[2024-08-22] MEDS: ALBUTEROL/IPRATROPIUM (Duoneb) RT SOL 3 ML NEBU INH ×4 (01:17→18:32)
[2024-08-22] MEDS: METHADONE HCL 10 MG TABLET 20 MG PO ×3 (01:44→17:32)
--- NOTE | 2024-08-22 04:24 | PC.NURSE ---
Last dose of zosyn given at 0018. Night pharmacy said it is okay to give next dose at 0600.
[2024-08-22] MEDS: VANCOMYCIN/NS 1 GM IVPB 200 ML IV ×3 (05:00→21:07)
[2024-08-22] MEDS: Erythromycin Op Oint 0.5% 1 GM PACKET RIGHT EYE ×4 (05:01→20:48)
[2024-08-22] MEDS: HEPARIN SOD INJ 5000 UNIT/ML VIAL SC ×3 (05:03→21:13)
[2024-08-22 05:46] LABS: Basophils % (Auto) 0 % (0-2.5); Eosinophils # (Auto) 0.1 Thou/mm3 (0.0-0.5); Eosinophils % (Auto) 1 % (0-10); Hematocrit 39.6 % (41.0-53.0); Hemoglobin 12.2 g/dL (13.5-16.0); Immature Granulocytes % (Auto) 0 % (0-0); Immature Granulocytes Auto 0.03 Thou/mm3 (0.00-0.00); Lymphocytes # (Auto) 2.2 Thou/mm3 (1.0-4.8); Lymphocytes % (Auto) 19 % (10-50); Mean Corpuscular HGB Conc 30.8 g/dl (31.0-37.0); Mean Corpuscular Hemoglobin 26.6 pg (25.0-35.0); Mean Corpuscular Volume 87 fL (80-100); Monocytes # (Auto) 0.8 Thou/mm3 (0.0-0.8); Monocytes % (Auto) 7 % (0-12); Neutrophils # (Auto) 8.3 Thou/mm3 (1.8-7.7); Neutrophils % (Auto) 73 % (37-80); Nucleated Red Blood Cell % 0 /100 WBC (0); Platelet Count 186 Thou/mm3 (140-440); RDW Standard Deviation 48.6 fL (35.1-43.9); Red Blood Count 4.58 Miln/mm3 (4.50-5.90); White Blood Count 11.5 Thou/mm3 (3.8-10.6)
[2024-08-22 06:16] LABS: Alanine Aminotransferase < 7 U/L (10-49); Albumin, Serum 3.4 gm/dL (3.5-5.0); Albumin/Globulin Ratio 1.1 (1.2-2.2); Alkaline Phosphatase 55 U/L (46-116); Anion Gap 8 (7-16); Aspartate Amino Transferase 10 U/L (0-34); BUN/Creatinine Ratio 33 Ratio (12-20); Bilirubin,Total 0.8 mg/dL (0.3-1.2); Blood Urea Nitrogen 13 mg/dL (9-23); Calcium 8.8 mg/dL (8.3-10.6); Calcium (Corrected) 9.3 mg/dL (8.5-10.1); Chloride 105 mMol/L (98-107); Creatinine (Component) 0.4 mg/dL (0.6-1.3); Estimated Creatinine Clearance 185.2 mL/min (>60); Glucose 76 mg/dL (74-106); Magnesium 2.2 mg/dL (1.6-2.6); Osmolality,Calculated 285 (275-295); Phosphorous 3.4 mg/dL (2.4-5.1); Potassium 4.4 mMol/L (3.4-5.1); Sodium 144 mMol/L (136-145); Total Protein 6.4 gm/dL (5.7-8.2); eGFR > 60 See Note
[2024-08-22] MEDS: PANTOPRAZOLE INJ 40 MG VIAL IVP (09:33)
[2024-08-22] MEDS: POLYETHYLENE GLYCOL 17 GM PACKET PO (09:33)
[2024-08-22] MEDS: levETIRAcetam LIQD 500 MG/5 ML UDC GT ×2 (09:34→20:46)
[2024-08-22] MEDS: SENNA TABLET 1 TAB PO (09:34)
[2024-08-22] MEDS: ACETAMINOPHEN 325 MG TABLET 650 MG PO (11:07)
[2024-08-22 11:38] LABS: Base Excess, Venous 5 (-3-3); O2 Saturation, Venous 59 % (96-97); PCO2, Venous 52 mmHg (36-56); PO2, Venous 33 mmHg (15-58); pH, Venous 7.39 (7.33-7.66)
--- NOTE | 2024-08-22 13:38 | ESPR_ITS ---
<Statement entered by Jess Kenyon MD - 08/23/24 07:47> Patient was seen and examined by me personally. I have directly supervised and reviewed documentation by the team resident and agree with its findings with any exceptions or additional findings as below. Plan of care was discussed with the attending, Dr. Merino. Patient seen at bedside with slightly improved mentation however patient is expressing more pain. Patient was given morphine push 2 mg IV, as patient was on high doses of oral morphine on hospice may add more pushes as needed. Continue IV Zosyn and vancomycin for ESBL UTI and pneumonia. Continue to wean O2 requirements. Jess Kenyon, PGY-2 Documentation for date of: 08/22/24 Subjective Subjective Interval history: Patient was seen and examined by the bedside. No acute overnight events. Patient's mentation has mildly improved compared to yesterday, he is AOx2, reported pain to the nursing staff. Will continue with antibiotics and try to wean down the oxygen if it is possible. In the setting of acute encephalopathy, will carefully provide pain control as needed Exam Vital Signs Temp Pulse Resp BP Pulse Ox O2 Del Method O2 Flow Rate 98.9 F 84 18 124/84 95 High Flow Nasal Cannula 40 08/22/24 12:00 08/22/24 12:46 08/22/24 12:46 08/22/24 12:00 08/22/24 12:46 08/22/24 12:00 08/22/24 12:46 FiO2 80 08/22/24 12:46 Narrative Exam Gen: Chronically ill-appearing emaciated man. HEENT: NCAT, PERRLA, EOMI, MMM, right-sided injected conjunctiva. CVS: normal S1 and S2. RRR. No M/R/G. Resp: CTA B/L. No rhonchi, rales, crackles or wheezing. Scar in the lower portion of neck s/p tracheostomy. Abd: soft, non-tender, non-distended. BS+ in all 4 quadrants. PEG tube in situ, site unremarkable. MSK: Good ROM in BUE & BLE. No edema or rash. Neuro: CN II-XII grossly intact. Tetraparesis. Psych: AOx2, repeats phrases said to him. Objective Labs 08/23/24 05:03 08/23/24 05:03 Labs: Laboratory Results - last 24 hr 08/22/24 08/22/24 04:43 11:19 WBC 11.5 H RBC 4.58 Hgb 12.2 L Hct 39.6 L MCV 87 MCH 26.6 MCHC 30.8 L RDW Std Deviation 48.6 H Plt Count 186 Neut % (Auto) 73 Lymph % (Auto) 19 [place] % (Auto) 7 Eos % (Auto) 1 Baso % (Auto) 0 Neut # (Auto) 8.3 H Lymph # (Auto) 2.2 [place] # (Auto) 0.8 Eos # (Auto) 0.1 Baso # (Auto) 0.0 Immature Gran # (Auto) 0.03 H Absolute Nucleated RBC 0.00 Immature Gran % 0 Nucleated RBC % 0 VBG pH 7.39 VBG pCO2 52 VBG pO2 33 VBG O2 Sat ([place]) 59 L VBG Base Excess 5 H Sodium 144 Potassium 4.4 Chloride 105 Carbon Dioxide 31.0 Anion Gap 8 BUN 13 Creatinine 0.4 L Estim Creat Clear Calc 185.2 eGFR > 60 BUN/Creatinine Ratio 33 H Glucose 76 Calculated Osmolality 285 Calcium 8.8 Corrected Calcium 9.3 Phosphorus 3.4 Magnesium 2.2 Total Bilirubin 0.8 AST 10 ALT < 7 L Alkaline Phosphatase 55 Total Protein 6.4 Albumin 3.4 L Globulin 3.0 Albumin/Globulin Ratio 1.1 L ABG Interpretation ABG results: 08/21/24 08/21/24 08/22/24 06:20 11:50 11:19 ABG pH 7.38 7.40 ABG pCO2 54 H 53 H ABG pO2 55 L* 52 L* ABG HCO3 32 H 33 H ABG O2 Saturation 88 L 86 L ABG Base Excess 6 H 7 H VBG pH 7.39 VBG pCO2 52 VBG pO2 33 VBG Base Excess 5 H Quality Measures Quality Measures VTE prophylaxis Assessment & Plan Assessment Current Active Medications: Generic Name Dose Route Start Last Admin Trade Name Freq PRN Reason Stop Dose Admin Acetaminophen 650 mg 08/20/24 08:47 08/22/24 11:07 Acetaminophen 325 Mg Tablet PO 09/16/24 23:35 650 mg Q6H PRN Administration Fever >100.3 or pain 1-3 Protocol Albuterol/Ipratropium 3 ml 08/18/24 01:00 08/22/24 12:37 Albuterol/Ipratropium (Duoneb) Rt Clarissa 3 Ml Nebu INH 09/17/24 00:59 3 ml Q6HRRT ANGEL Administration Erythromycin 1 gm 08/17/24 23:45 08/22/24 12:07 Erythromycin Op Oint 0.5% 1 Gm Packet RIGHT EYE 09/16/24 23:44 1 gm QID ANGEL Administration Heparin Sodium (Porcine) 5,000 unit 08/17/24 23:45 08/22/24 05:03 Heparin Sod Inj 5000 Unit/Ml Vial SC 08/31/24 23:44 5,000 unit Q8HR ANGEL Administration Piperacillin/Tazobactam/Dextrose 3.375 gm in 50 mls @ 12.5 mls/hr 08/20/24 14:00 08/22/24 06:08 Zosyn IV 08/27/24 13:59 12.5 mls/hr Q8HR ANGEL Administration Vancomycin/Sodium Chloride 200 mls @ 120 mls/hr 08/21/24 22:00 08/22/24 05:00 Vancomycin/Ns 1 Gm Ivpb IV 08/28/24 21:59 120 mls/hr Q8HR ANGEL Administration Protocol Levetiracetam 500 mg 08/18/24 09:30 08/22/24 09:34 Levetiracetam Liqd 500 Mg/5 Ml Udc GT 09/17/24 09:29 500 mg BID ANGEL Administration Methadone HCl 20 mg 08/18/24 09:45 08/22/24 09:34 Methadone Hcl 10 Mg Tablet PO 08/23/24 09:44 20 mg Q8H ANGEL Administration Protocol Mineral Oil 30 ml 08/19/24 09:54 Mineral Oil 30 Ml Udc NC 09/16/24 23:44 BID PRN Constipation Ondansetron HCl 4 mg 08/17/24 23:36 Ondansetron Inj 2 Mg/Ml Inj 2 Ml IV 09/16/24 23:35 Q6H PRN NAUSEA OR VOMITING Protocol Pantoprazole Sodium 40 mg 08/18/24 09:00 08/22/24 09:33 Pantoprazole Inj 40 Mg Vial IVP 09/17/24 08:59 40 mg QDAY ANGEL Administration Pharmacy Consult 1 each 08/21/24 10:15 Vancomycin Pharmacy To Dose 1 Each Each IV 09/20/24 10:14 QDAY PRN CONSULT Polyethylene Glycol 17 gm 08/20/24 09:00 08/22/24 09:33 Polyethylene Glycol 17 Gm Packet PO 09/19/24 08:59 17 gm QDAY ANGEL Administration Sennosides 1 tab 08/22/24 09:00 08/22/24 09:34 Senna Tablet PO 09/21/24 08:59 1 tab QDAY ANGEL Administration Protocol Plan The patient is a 44-year-old male patient with past medical history of quadriplegia, seizures, status post PEG tube placement, suprapubic catheter, chronic decubitus ulcer was brought to the ED from SNF due to due to altered mental status and fever. Patient at baseline is verbal and oriented x 3 however at the facility he was noticed to have had 2 episodes of fever in in the past 2 days. He also noticed to be less talkative and not responsive to the nursing facility staff. Patient was admitted for treatment of sepsis secondary to UTI and pneumonia. #Acute hypoxic respiratory failure #Right lower lobe pneumonia, likely 2/2 aspiration 08/21/24: Xray showed worsening pneumonia. Due to acute encephalopathy, patient may have aspiration episode. 08/22/24: VBG showed pH 7.39, PCO2 52. - patient had been on zosyn for ESBL UTI, vancomycin added on 08/22/24 - Pt remains on HFNC, wean as tolerated - will restart tube feeds as patient is more alert #Acute metabolic encephalopathy secondary to UTI, improving #Acute UTI Patient with chronic suprapubic catheter, presented with tachycardia, he spiked fever at the nursing facility, is tachycardic with heart rate of 112, His CBC was only significant for platelet count of 135, BMP showed lactic acid normal of 1.3, normal electrolytes, normal lipase and negative procalcitonin however his urine analysis was dark orange, turbid, with positive ketones, proteins and blood, it was positive for WBCs more than 1800, positive for bacteria and yeast. Chest x-ray showed early base pneumonia, Head CT was negative for any hemorrhage or mass effect, CT abdomen and pelvis showed bilateral calculi however there was no obstruction and no hydronephrosis, also showed cystitis. COVID, flu, RSV all are negative Cocci serology negative Discontinued Ceftriaxone and azithromycin for both pneumonia and UTI 08/20/24 Plan ?Zosyn 3.375 every 6 hours 08/20/2024-current - Vancomycin pharmacy to dose 08/22/2024-current ? Oxygen as needed ? MRSA screening negative - Sputum culture pending ? Urine culture grew Klebsiella pneumonia ESBL, Providencia stuartii both sensitive to Zosyn, ertapenem and imipenem. - Blood cultures preliminary negative #Right-sided conjunctivitis Patient has red discoloration on the right eye with purulent discharge, no itching Plan ? Erythromycin ophthalmic ointment 4 times daily ? Eye care daily #Severe constipation, improving #Proctitis CT abdomen and pelvis showed severe stool impaction, appears to be compressing the urinary bladder. Associated with proctitis Patient is bedridden, noticed some of his meds could be narcotics which may lead to stool impaction At this time the patient was mildly dehydrated we will hold on osmotic laxatives at this time decrease the risk of worsening his dehydration 08/19/2024: Patient had a bowel movement after the miralax and the mineral oil enema. Will continue with Miralax for now. Plan ? Mineral oil enema twice daily PRN ? MiraLAX daily ? Consider manual disimpaction if needed #History of seizure disorder Plan ? Keppra 500 twice daily #History of quadriplegia status post PEG tube Plan ? Dietitian consulted ? Glycerna with free water flushes #Chronic pain Previously held methadone, resuming it as he is more awake. Plan: - continue methadone - pain control as needed Hospital Maintenance: FEN: tube feeds DVT ppx: Heparin subcu GI ppx: Protonix IV lines: PIV Moyer: Suprapubic catheter Code status: Full code Dispo: Med/tele Plan of care discussed with attending Dr. Merino and PGY-[address] Kenyon. Radha Oliveira MD, PGY 1. Attending Provider Attestation/Addendum Toni, Nyla Merino, DO, attest that I was physically present for the pascual portions of the service and evaluated the patient with the resident and I reviewed and discussed the case with the resident and agree with the resident's findings and plans of care as documented above Patient seen and evaluated this AM. Significant other is at bedside. Mental status appears much improved today. Patient reports having pain. Will give morphine as patient is noted to be on a significant amount of morphine at home. However, will decrease dose and give only one time due to respiratory status. Bibasilar crackles noted on exam. Patient is much more interactive and alert. HFNC is on 35L/min and FIO2 of 80%. Will continue with current antibiotic regimen on vancomycin and zosyn. F/u with cultures to further narrow abx
[2024-08-22] MEDS: MORPHINE SULF INJ 10 MG/ML VIAL 2 MG IVP (14:27)
[2024-08-23] VITALS (15 sets, daily range): BP systolic 101–117; BP diastolic 68–78; PULSE 72–93; RESP 13–24; TEMP 36.2–37.1; O2SAT 91–97
[2024-08-23] MEDS: ALBUTEROL/IPRATROPIUM (Duoneb) RT SOL 3 ML NEBU INH ×4 (01:34→18:18)
[2024-08-23] MEDS: METHADONE HCL 10 MG TABLET 20 MG PO (02:30)
[2024-08-23] MEDS: VANCOMYCIN/NS 1 GM IVPB 200 ML IV (05:13)
[2024-08-23] MEDS: PIPER/TAZO 3.375 GM PREMIX 3.375 GM/50 ML BAG IV ×3 (05:14→22:24)
[2024-08-23] MEDS: HEPARIN SOD INJ 5000 UNIT/ML VIAL SC ×3 (05:20→22:27)
[2024-08-23] MEDS: Erythromycin Op Oint 0.5% 1 GM PACKET RIGHT EYE ×4 (05:21→21:12)
[2024-08-23 06:09] LABS: Basophils % (Auto) 0 % (0-2.5); Eosinophils # (Auto) 0.3 Thou/mm3 (0.0-0.5); Eosinophils % (Auto) 3 % (0-10); Hematocrit 40.4 % (41.0-53.0); Hemoglobin 12.6 g/dL (13.5-16.0); Immature Granulocytes % (Auto) 0 % (0-0); Immature Granulocytes Auto 0.04 Thou/mm3 (0.00-0.00); Lymphocytes # (Auto) 1.5 Thou/mm3 (1.0-4.8); Lymphocytes % (Auto) 15 % (10-50); Mean Corpuscular HGB Conc 31.2 g/dl (31.0-37.0); Mean Corpuscular Hemoglobin 26.7 pg (25.0-35.0); Mean Corpuscular Volume 86 fL (80-100); Monocytes # (Auto) 0.6 Thou/mm3 (0.0-0.8); Monocytes % (Auto) 6 % (0-12); Neutrophils % (Auto) 77 % (37-80); Nucleated Red Blood Cell % 0 /100 WBC (0); Platelet Count 116 Thou/mm3 (140-440); RDW Standard Deviation 47.1 fL (35.1-43.9); Red Blood Count 4.72 Miln/mm3 (4.50-5.90); White Blood Count 10.4 Thou/mm3 (3.8-10.6)
[2024-08-23 07:04] LABS: Alanine Aminotransferase < 7 U/L (10-49); Albumin, Serum 3.5 gm/dL (3.5-5.0); Albumin/Globulin Ratio 1.1 (1.2-2.2); Alkaline Phosphatase 58 U/L (46-116); Anion Gap 11 (7-16); Aspartate Amino Transferase < 10 U/L (0-34); BUN/Creatinine Ratio 20 Ratio (12-20); Bilirubin,Total 0.4 mg/dL (0.3-1.2); Blood Urea Nitrogen 10 mg/dL (9-23); Calcium 8.7 mg/dL (8.3-10.6); Calcium (Corrected) 9.1 mg/dL (8.5-10.1); Chloride 104 mMol/L (98-107); Creatinine (Component) 0.5 mg/dL (0.6-1.3); Estimated Creatinine Clearance 148.9 mL/min (>60); Globulin 3.1 gm/dL (2.3-3.5); Glucose 92 mg/dL (74-106); Osmolality,Calculated 285 (275-295); Phosphorous 2.8 mg/dL (2.4-5.1); Potassium 3.6 mMol/L (3.4-5.1); Sodium 144 mMol/L (136-145); Total Protein 6.6 gm/dL (5.7-8.2); eGFR > 60 See Note
[2024-08-23] MEDS: LANSOPRAZOLE 30 MG TAB.RAP.DR GT (09:26)
[2024-08-23] MEDS: SENNA TABLET 1 TAB PO (09:26)
[2024-08-23] MEDS: POLYETHYLENE GLYCOL 17 GM PACKET PO (09:26)
[2024-08-23] MEDS: levETIRAcetam LIQD 500 MG/5 ML UDC GT ×2 (09:26→21:10)
--- NOTE | 2024-08-23 11:18 | PC.NURSE ---
New Open area to R groin with pink/reddened surrounding tissue, sanguineous drainage noted, MD Merino notified, new wound referral added, nutrition referral on chart, pt on Q2H turn schedule, family notified.
[2024-08-23] MEDS: DOXYCYCLINE 100 MG TABLET GT ×2 (12:53→21:10)
--- NOTE | 2024-08-23 14:43 | PD.RESPRO ---
Documentation for date of: 08/23/24 Subjective Subjective Interval history: No acute events overnight.?Patient seen and examined at bedside this AM.?Patient is sleeping but arousable to voice and name. He is not reporting any pain at this time. Patient oriented to self, , and place. Currently seen on Hi-Flow, weaning down FiO2 which was at 60% today. Per nursing, patient has open 1x1 cm area to the right groin with erythema and sanguineous drainage.?Wound care referral for this new wound ordered. Labs and vitals were reviewed.?No new fevers noted, BP stable. WBC downtrended to 10.4. Platelets noted to downtrend also at 116k but will continue to trend. No further complaints at this time. Will continue with IV Zosyn otherwise discontinued vancomycin and switched to doxycyline 100 mg BID via GT. Blood cultures are negative from 08/21 post-48 hours, will await final sputum cultures. Review of systems otherwise negative except what is mentioned above. Exam Vital Signs Temp Pulse Resp BP Pulse Ox O2 Del Method O2 Flow Rate 98.3 F 88 18 103/72 92 L High Flow Nasal Cannula 35 08/23/24 12:00 08/23/24 14:31 08/23/24 14:31 08/23/24 12:00 08/23/24 14:31 08/23/24 12:00 08/23/24 14:31 FiO2 70 08/23/24 14:31 Narrative Exam Gen: Chronically ill-appearing emaciated man. Awake and answering some questions with short phrases. HEENT: NCAT, PERRLA, EOMI, MMM, right-sided injected conjunctiva. CVS: Normal S1 and S2. RRR. No M/R/G. Resp: CTA B/L. No rhonchi, rales, crackles or wheezing. Scar in the lower portion of neck s/p tracheostomy. Abd: Noft, non-tender, non-distended. BS+ in all 4 quadrants. PEG tube in situ, site unremarkable. MSK: Chronically contracted in the upper and lower extremities. Neuro: Oriented x3. CN II-XII grossly intact. Tetraparesis. Patient slowly moves upper extremities. Psych: AOx2, repeats phrases said to him. Objective Labs 08/24/24 05:21 08/24/24 05:21 Labs: Laboratory Results - last 24 hr 08/23/24 05:03 WBC 10.4 RBC 4.72 Hgb 12.6 L Hct 40.4 L MCV 86 MCH 26.7 MCHC 31.2 RDW Std Deviation 47.1 H Plt Count 116 L D Neut % (Auto) 77 Lymph % (Auto) 15 [place] % (Auto) 6 Eos % (Auto) 3 Baso % (Auto) 0 Neut # (Auto) 8.0 H Lymph # (Auto) 1.5 [place] # (Auto) 0.6 Eos # (Auto) 0.3 Baso # (Auto) 0.0 Immature Gran # (Auto) 0.04 H Absolute Nucleated RBC 0.00 Immature Gran % 0 Nucleated RBC % 0 Sodium 144 Potassium 3.6 D Chloride 104 Carbon Dioxide 29.0 Anion Gap 11 BUN 10 Creatinine 0.5 L Estim Creat Clear Calc 148.9 eGFR > 60 BUN/Creatinine Ratio 20 Glucose 92 Calculated Osmolality 285 Calcium 8.7 Corrected Calcium 9.1 Phosphorus 2.8 Magnesium 2.0 Total Bilirubin 0.4 AST < 10 ALT < 7 L Alkaline Phosphatase 58 Total Protein 6.6 Albumin 3.5 Globulin 3.1 Albumin/Globulin Ratio 1.1 L ABG Interpretation ABG results: 08/21/24 08/21/24 08/22/24 06:20 11:50 11:19 ABG pH 7.38 7.40 ABG pCO2 54 H 53 H ABG pO2 55 L* 52 L* ABG HCO3 32 H 33 H ABG O2 Saturation 88 L 86 L ABG Base Excess 6 H 7 H VBG pH 7.39 VBG pCO2 52 VBG pO2 33 VBG Base Excess 5 H Quality Measures Quality Measures VTE prophylaxis Assessment & Plan Assessment Current Active Medications: Generic Name Dose Route Start Last Admin Trade Name Freq PRN Reason Stop Dose Admin Acetaminophen 650 mg 08/20/24 08:47 08/22/24 11:07 Acetaminophen 325 Mg Tablet PO 09/16/24 23:35 650 mg Q6H PRN Administration Fever >100.3 or pain 1-3 Protocol Albuterol/Ipratropium 3 ml 08/18/24 01:00 08/23/24 12:41 Albuterol/Ipratropium (Duoneb) Rt Clarissa 3 Ml Nebu INH 09/17/24 00:59 3 ml Q6HRRT ANGEL Administration Doxycycline Hyclate 100 mg 08/23/24 10:30 08/23/24 12:53 Doxycycline 100 Mg Tablet GT 08/30/24 10:29 100 mg BID ANGEL Administration Erythromycin 1 gm 08/17/24 23:45 08/23/24 14:34 Erythromycin Op Oint 0.5% 1 Gm Packet RIGHT EYE 09/16/24 23:44 1 gm QID ANGEL Administration Heparin Sodium (Porcine) 5,000 unit 08/17/24 23:45 08/23/24 14:34 Heparin Sod Inj 5000 Unit/Ml Vial SC 08/31/24 23:44 5,000 unit Q8HR ANGEL Administration Piperacillin/Tazobactam/Dextrose 3.375 gm in 50 mls @ 12.5 mls/hr 08/20/24 14:00 08/23/24 14:34 Zosyn IV 08/27/24 13:59 12.5 mls/hr Q8HR ANGEL Administration Lansoprazole 30 mg 08/23/24 09:00 08/23/24 09:26 Lansoprazole 30 Mg Tab.Nati. GT 09/17/24 08:59 30 mg QDAY ANGEL Administration Levetiracetam 500 mg 08/18/24 09:30 08/23/24 09:26 Levetiracetam Liqd 500 Mg/5 Ml Udc GT 09/17/24 09:29 500 mg BID ANGEL Administration Mineral Oil 30 ml 08/19/24 09:54 Mineral Oil 30 Ml Udc VA 09/16/24 23:44 BID PRN Constipation Ondansetron HCl 4 mg 08/17/24 23:36 Ondansetron Inj 2 Mg/Ml Inj 2 Ml IV 09/16/24 23:35 Q6H PRN NAUSEA OR VOMITING Protocol Polyethylene Glycol 17 gm 08/20/24 09:00 08/23/24 09:26 Polyethylene Glycol 17 Gm Packet PO 09/19/24 08:59 17 gm QDAY ANGEL Administration Sennosides 1 tab 08/22/24 09:00 08/23/24 09:26 Senna Tablet PO 09/21/24 08:59 1 tab QDAY ANGEL Administration Protocol Plan 44-year-old male with past medical history of quadriplegia, seizures, s/p PEG tube placement, suprapubic catheter, chronic decubitus ulcer who was brought to the ED from SNF due to altered mental status and fever for 2 days. Patient was subsequently admitted for treatment of sepsis secondary to UTI and pneumonia. #Acute hypoxic respiratory failure #Right lower lobe pneumonia, likely secondary to aspiration Patient initially came saturating well on room air, but slowly started to have increasing O2 requirements. COVID, flu, RSV were negative Cocci serology was negative MRSA screening negative Discontinued ceftriaxone and azithromycin for both pneumonia and UTI due to resistance of urine micro 08/20/24 08/21/24: Patient noted to start required Hi-Flow O2. X-ray showed worsening pneumonia. Due to acute encephalopathy, patient may have had an aspiration episode. 08/22/24: VBG showed pH 7.39, PCO2 52. Plan - Continue IV Zosyn 3.375 mg q8h for ESBL UTI - Continue ancomycin added on 08/22/24 - Continue Hi-Flow NC, wean as tolerated - Sputum culture pending - Aspiration precautions #Acute metabolic encephalopathy - improving #Sepsis, secondary to UTI - resolved #Providencia stuartii and Klebsiella pneumoniae UTI Patient with chronic suprapubic catheter, presented with tachycardia and fevers at his nursing facility. Urinalysis showed dark orange, turbid sample, with positive ketones, proteins and blood, WBCs more than 1800, positive for bacteria and yeast. Chest x-ray showed early base pneumonia, Head CT was negative for any hemorrhage or mass effect, CT abdomen and pelvis showed bilateral calculi however there was no obstruction and no hydronephrosis, also showed cystitis. 08/17/2024 Urine culture grew Klebsiella pneumonia ESBL, Providencia stuartii both sensitive to Zosyn, ertapenem and imipenem. Plan - Zosyn 3.375 every 8 hours 08/20/2024-current - Discontinued vancomycin pharmacy to dose 08/22/2024-08/23/2024 - Started doxycycline 100 mg GT BID 08/23/2024-current as it is less nephrotoxic - Blood cultures preliminary negative 48 hours #Right-sided conjunctivitis Patient has red discoloration on the right eye with purulent discharge, no itching Plan ? Erythromycin ophthalmic ointment 4 times daily ? Eye care daily #Severe constipation, improving #Proctitis CT abdomen and pelvis showed severe stool impaction, appears to be compressing the urinary bladder. Associated with proctitis. Patient is bedridden, noticed some of his meds could be narcotics which may lead to stool impaction. At this time the patient was mildly dehydrated we will hold on osmotic laxatives at this time decrease the risk of worsening his dehydration. 08/19/2024: Patient had a bowel movement after the miralax and the mineral oil enema. Will continue with Miralax daily for now. Plan ? Mineral oil enema twice daily PRN ? MiraLAX daily ? Senna 1 tab daily #History of seizure disorder Plan ? Continue home Keppra 500 twice daily #History of quadriplegia status post PEG tube Plan ? Dietitian consulted ? Continue home tube feeds, Glycerna 1.2 at goal rate 60 ml/hr with free water flushes #Chronic pain Previously held methadone, resuming it as he is more awake. Patient on hospice prior to hospitalization and uses liquid morphine via GT. Plan: - Continue home methadone 20 mg GT q8h - Pain control as needed, may add morphine IV 2 mg in pushes if patient appears in pain Hospital Maintenance: FEN: Tube feeding, Glycerna 1.2 at goal rate 60 ml/hr with free water flushes DVT ppx: Heparin subcu GI ppx: Protonix IV lines: PIV Moyer: Suprapubic catheter Code status: Full code Dispo: Med/tele Patient plan of care was discussed with the attending physician, Dr. Merino. Jess Kenyon, PGY-2 Attending Provider Attestation/Addendum Toni, Nyla Merino DO, attest that I was physically present for the pascual portions of the service and evaluated the patient with the resident and I reviewed and discussed the case with the resident and agree with the resident's findings and plans of care as documented above Patient seen and evaluated this AM. He is much more alert today. He remains on HFNC of 25L/min and FIO2 of 70%. No acute events overnight. Patient has been afebrile. Appears to be improved with vancomycin. Sputum cultures positive for GPC and GNR. Will consider narrowing abx if patient continues to improve.
[2024-08-23] MEDS: METHADONE HCL 10 MG TABLET 20 MG GT (22:14)
[2024-08-24] VITALS (15 sets, daily range): BP systolic 97–124; BP diastolic 68–90; PULSE 67–94; RESP 14–22; TEMP 36.1–37.7; O2SAT 90–98; BMI 17.6
[2024-08-24] MEDS: ALBUTEROL/IPRATROPIUM (Duoneb) RT SOL 3 ML NEBU INH ×4 (01:08→18:30)
[2024-08-24] MEDS: PIPER/TAZO 3.375 GM PREMIX 3.375 GM/50 ML BAG IV ×3 (05:37→21:15)
[2024-08-24] MEDS: HEPARIN SOD INJ 5000 UNIT/ML VIAL SC ×3 (05:39→21:17)
[2024-08-24] MEDS: Erythromycin Op Oint 0.5% 1 GM PACKET RIGHT EYE ×4 (05:40→21:17)
[2024-08-24] MEDS: METHADONE HCL 10 MG TABLET 20 MG GT (05:57)
[2024-08-24 06:06] LABS: Basophils % (Auto) 0 % (0-2.5); Eosinophils # (Auto) 0.3 Thou/mm3 (0.0-0.5); Eosinophils % (Auto) 3 % (0-10); Hematocrit 38.7 % (41.0-53.0); Hemoglobin 12.1 g/dL (13.5-16.0); Immature Granulocytes % (Auto) 1 % (0-0); Immature Granulocytes Auto 0.06 Thou/mm3 (0.00-0.00); Lymphocytes # (Auto) 1.6 Thou/mm3 (1.0-4.8); Lymphocytes % (Auto) 15 % (10-50); Mean Corpuscular HGB Conc 31.3 g/dl (31.0-37.0); Mean Corpuscular Hemoglobin 26.8 pg (25.0-35.0); Mean Corpuscular Volume 86 fL (80-100); Monocytes # (Auto) 0.7 Thou/mm3 (0.0-0.8); Monocytes % (Auto) 7 % (0-12); Neutrophils # (Auto) 7.5 Thou/mm3 (1.8-7.7); Neutrophils % (Auto) 74 % (37-80); Nucleated Red Blood Cell % 0 /100 WBC (0); Platelet Count 217 Thou/mm3 (140-440); RDW Standard Deviation 47.2 fL (35.1-43.9); Red Blood Count 4.52 Miln/mm3 (4.50-5.90); White Blood Count 10.2 Thou/mm3 (3.8-10.6)
[2024-08-24 06:32] LABS: Alanine Aminotransferase < 7 U/L (10-49); Albumin, Serum 3.3 gm/dL (3.5-5.0); Albumin/Globulin Ratio 1.1 (1.2-2.2); Alkaline Phosphatase 58 U/L (46-116); Anion Gap 9 (7-16); Aspartate Amino Transferase < 10 U/L (0-34); BUN/Creatinine Ratio 28 Ratio (12-20); Bilirubin,Total 0.3 mg/dL (0.3-1.2); Blood Urea Nitrogen 11 mg/dL (9-23); Calcium 9.1 mg/dL (8.3-10.6); Calcium (Corrected) 9.7 mg/dL (8.5-10.1); Carbon Dioxide 34.1 mMol/L (20.0-31.0); Chloride 105 mMol/L (98-107); Creatinine (Component) 0.4 mg/dL (0.6-1.3); Estimated Creatinine Clearance 186.6 mL/min (>60); Glucose 122 mg/dL (74-106); Osmolality,Calculated 294 (275-295); Potassium 3.2 mMol/L (3.4-5.1); Sodium 148 mMol/L (136-145); Total Protein 6.3 gm/dL (5.7-8.2); eGFR > 60 See Note
--- NOTE | 2024-08-24 06:40 | PC.NURSE ---
Dr. Steward made aware that patients potassium dropped from 3.[address] Steward said thats okay .
[2024-08-24] MEDS: POLYETHYLENE GLYCOL 17 GM PACKET PO (09:49)
[2024-08-24] MEDS: levETIRAcetam LIQD 500 MG/5 ML UDC GT ×2 (09:49→21:15)
[2024-08-24] MEDS: LANSOPRAZOLE 30 MG TAB.RAP.DR GT (09:49)
[2024-08-24] MEDS: DOXYCYCLINE 100 MG TABLET GT ×2 (09:49→21:14)
[2024-08-24] MEDS: SENNA TABLET 1 TAB PO (09:49)
[2024-08-24] MEDS: ACETAMINOPHEN 325 MG TABLET 650 MG PO (12:40)
[2024-08-24] MEDS: NALOXONE INJ 0.4 MG/ML VIAL IVP (14:10)
--- NOTE | 2024-08-24 14:18 | PC.NURSE ---
CALLED A PROFESSOR OF FINE ART FOR CHANGE IN MENTAL STATUS. PT PRESENTS MORE LETHARGIC THAN EARLIER TODAY. PT WAS GIVEN NARCAN AND PT BECAME MORE RESPONSIVE AFTER RECEIVING MEDICATION.
--- NOTE | 2024-08-24 14:20 | XR_ITS ---
Examination: AP chest single view TECHNIQUE: AP portable supine chest single view Exam date and time: 20/09/2024 1328 hours Comparison August 21, 2024 INDICATIONS: Shortness of breath today. FINDINGS: Worsening pneumonia and volume loss in the right lower lobe and right middle lobe Normal heart size Mild vascular congestion IMPRESSION: Worsening pneumonia volume loss in the right lower lobe and right middle lobe
--- NOTE | 2024-08-24 14:23 | PD.RESEVENT ---
Documentation for date of: 08/24/24 Event Note Event Note: Rapid Response Room: 374 Time: 14:15 Reason for Call: Altered mentation, more lethargic from baseline Patient presentation: Patient appeared more altered from baseline, not answering questions and slow to rouse with sternal rub. Meanwhile patient's vitals remained stable, patient was afebrile, saturating low 90s on 35L 60% FiO2. Respiratory rate was normal. Events: Patient was given Narcan 0.4 mg x1 and promptly became more awake. Vitals remains stable however he became more tachypneic in the 30-40s, therefore dose of morphine 1 mg IV was given with improvement of the respiratory rate. Assessment: Possible opioid-induced sedation, however methadone 20 mg dose was last received at 6 am. New orders: Narcan 0.4 mg x1, morphine 1 mg x1, methadone 20 mg on hold. ABG ordered. Patient was discussed with the attending, Dr. Merino. Jess Kenyon, PGY-2
[2024-08-24] MEDS: MORPHINE SULF INJ 10 MG/ML VIAL IVP (14:50)
[2024-08-24 15:45] LABS: Base Excess 11 (-3-3); HCO3 35 mEq/L (20-26); Inspired Oxygen, FIO2 90 %; O2 Saturation 94 % (91-98); PCO2 45 mmHg (32.0-48.0); PO2 65 mmHg (83-108)
[2024-08-24 15:46] LABS: Allen Test Not Performed; Puncture Site Right Radial
--- NOTE | 2024-08-24 16:08 | PC.SS ---
Follow up note: Pt is on 40 liters of O2 and 60% FIO2. On IV antibiotic. Pt will return to [facility] with [facility]. Pt had rapid response today.
--- NOTE | 2024-08-24 17:23 | ESPR_ITS ---
Documentation for date of: 08/24/24 Subjective Subjective Interval history: No acute events overnight.?Patient seen and examined at bedside this AM.?Patient asleep but answering A&O questions x3 correct. Per nursing, this afternoon patient became more somnolent, less arousable to sternal rub. Rapid response was called around 2pm. Patient received Narcan 0.4 and became awake, then tachypneic, following dose of morphine 1 mg tachypneia resolved. Subsequent doses of methadone were held. Will continue IV Zosyn and doxycycline and try to wean O2. Labs and vitals were reviewed.?No further complaints at this time. Review of systems otherwise negative except what is mentioned above. Exam Vital Signs Temp Pulse Resp BP Pulse Ox O2 Del Method O2 Flow Rate 97.6 F 84 18 124/90 H 96 High Flow Nasal Cannula 35 08/24/24 16:00 08/24/24 16:00 08/24/24 16:00 08/24/24 16:00 08/24/24 16:00 08/24/24 16:00 08/24/24 14:43 FiO2 60 08/24/24 14:43 Narrative Exam Gen: Chronically ill-appearing emaciated man. Awake and answering some questions with short phrases. HEENT: NCAT, PERRLA, EOMI, MMM, right-sided injected conjunctiva. CVS: Normal S1 and S2. RRR. No M/R/G. Resp: CTA B/L. No rhonchi, rales, crackles or wheezing. Scar in the lower portion of neck s/p tracheostomy. Abd: Noft, non-tender, non-distended. BS+ in all 4 quadrants. PEG tube in situ, site unremarkable. MSK: Chronically contracted in the upper and lower extremities. Neuro: Oriented x3. CN II-XII grossly intact. Tetraparesis. Patient slowly moves upper extremities. Psych: AOx2, repeats phrases said to him. Objective Labs 08/25/24 05:28 08/25/24 05:28 Labs: Laboratory Results - last 24 hr 08/24/24 08/24/24 05:21 15:36 WBC 10.2 RBC 4.52 Hgb 12.1 L Hct 38.7 L MCV 86 MCH 26.8 MCHC 31.3 RDW Std Deviation 47.2 H Plt Count 217 D Neut % (Auto) 74 Lymph % (Auto) 15 [place] % (Auto) 7 Eos % (Auto) 3 Baso % (Auto) 0 Neut # (Auto) 7.5 Lymph # (Auto) 1.6 [place] # (Auto) 0.7 Eos # (Auto) 0.3 Baso # (Auto) 0.0 Immature Gran # (Auto) 0.06 H Absolute Nucleated RBC 0.00 Immature Gran % 1 H Nucleated RBC % 0 Puncture Site Right Radial ABG pH 7.50 H ABG pCO2 45 ABG pO2 65 L ABG HCO3 35 H ABG O2 Saturation 94 ABG Base Excess 11 H FiO2 90 Sodium 148 H Potassium 3.2 L Chloride 105 Carbon Dioxide 34.1 H Anion Gap 9 BUN 11 Creatinine 0.4 L Estim Creat Clear Calc 186.6 eGFR > 60 BUN/Creatinine Ratio 28 H Glucose 122 H Calculated Osmolality 294 Calcium 9.1 Corrected Calcium 9.7 Total Bilirubin 0.3 AST < 10 ALT < 7 L Alkaline Phosphatase 58 Total Protein 6.3 Albumin 3.3 L Globulin 3.0 Albumin/Globulin Ratio 1.1 L ABG Interpretation ABG results: 08/21/24 08/21/24 08/22/24 06:20 11:50 11:19 ABG pH 7.38 7.40 ABG pCO2 54 H 53 H ABG pO2 55 L* 52 L* ABG HCO3 32 H 33 H ABG O2 Saturation 88 L 86 L ABG Base Excess 6 H 7 H VBG pH 7.39 VBG pCO2 52 VBG pO2 33 VBG Base Excess 5 H 08/24/24 15:36 ABG pH 7.50 H ABG pCO2 45 ABG pO2 65 L ABG HCO3 35 H ABG O2 Saturation 94 ABG Base Excess 11 H VBG pH VBG pCO2 VBG pO2 VBG Base Excess Quality Measures Quality Measures VTE prophylaxis Assessment & Plan Assessment Current Active Medications: Generic Name Dose Route Start Last Admin Trade Name Freq PRN Reason Stop Dose Admin Acetaminophen 650 mg 08/20/24 08:47 08/24/24 12:40 Acetaminophen 325 Mg Tablet PO 09/16/24 23:35 650 mg Q6H PRN Administration Fever >100.3 or pain 1-3 Protocol Albuterol/Ipratropium 3 ml 08/18/24 01:00 08/24/24 12:52 Albuterol/Ipratropium (Duoneb) Rt Clarissa 3 Ml Nebu INH 09/17/24 00:59 3 ml Q6HRRT ANGEL Administration Doxycycline Hyclate 100 mg 08/23/24 10:30 08/24/24 09:49 Doxycycline 100 Mg Tablet GT 08/30/24 10:29 100 mg BID ANGEL Administration Erythromycin 1 gm 08/17/24 23:45 08/24/24 12:17 Erythromycin Op Oint 0.5% 1 Gm Packet RIGHT EYE 09/16/24 23:44 1 gm QID ANGEL Administration Heparin Sodium (Porcine) 5,000 unit 08/17/24 23:45 08/24/24 14:42 Heparin Sod Inj 5000 Unit/Ml Vial SC 08/31/24 23:44 5,000 unit Q8HR ANGEL Administration Piperacillin/Tazobactam/Dextrose 3.375 gm in 50 mls @ 12.5 mls/hr 08/20/24 14:00 08/24/24 14:41 Zosyn IV 08/27/24 13:59 12.5 mls/hr Q8HR ANGEL Administration Lansoprazole 30 mg 08/23/24 09:00 08/24/24 09:49 Lansoprazole 30 Mg Tab.Rap. GT 09/17/24 08:59 30 mg QDAY ANGEL Administration Levetiracetam 500 mg 08/18/24 09:30 08/24/24 09:49 Levetiracetam Liqd 500 Mg/5 Ml Udc GT 09/17/24 09:29 500 mg BID ANGEL Administration Methadone HCl 20 mg 08/23/24 22:00 08/24/24 14:26 Methadone Hcl 10 Mg Tablet GT 08/28/24 21:59 Not Given Q8HR ANGEL Mineral Oil 30 ml 08/19/24 09:54 Mineral Oil 30 Ml Udc DE 09/16/24 23:44 BID PRN Constipation Ondansetron HCl 4 mg 08/17/24 23:36 Ondansetron Inj 2 Mg/Ml Inj 2 Ml IV 09/16/24 23:35 Q6H PRN NAUSEA OR VOMITING Protocol Polyethylene Glycol 17 gm 08/20/24 09:00 08/24/24 09:49 Polyethylene Glycol 17 Gm Packet PO 09/19/24 08:59 17 gm QDAY ANGEL Administration Sennosides 1 tab 08/22/24 09:00 08/24/24 09:49 Senna Tablet PO 09/21/24 08:59 1 tab QDAY ANGEL Administration Protocol Plan 44-year-old male with past medical history of quadriplegia, seizures, s/p PEG tube placement, suprapubic catheter, chronic decubitus ulcer who was brought to the ED from SNF due to altered mental status and fever for 2 days. Patient was subsequently admitted for treatment of sepsis secondary to UTI and pneumonia. #Acute hypoxic respiratory failure #Right lower lobe pneumonia, likely secondary to aspiration Patient initially came saturating well on room air, but slowly started to have increasing O2 requirements. COVID, flu, RSV were negative Cocci serology was negative MRSA screening negative Discontinued ceftriaxone and azithromycin for both pneumonia and UTI due to resistance of urine micro 08/20/24 08/21/24: Patient noted to start required Hi-Flow O2. X-ray showed worsening pneumonia. Due to acute encephalopathy, patient may have had an aspiration episode. 08/22/24: VBG showed pH 7.39, PCO2 52. Plan - Continue IV Zosyn 3.375 mg q8h for ESBL UTI - Continue Hi-Flow NC, wean as tolerated - Sputum culture pending - Aspiration precautions #Acute metabolic encephalopathy - improving #Sepsis, secondary to UTI - resolved #Providencia stuartii and Klebsiella pneumoniae UTI Patient with chronic suprapubic catheter, presented with tachycardia and fevers at his nursing facility. Urinalysis showed dark orange, turbid sample, with positive ketones, proteins and blood, WBCs more than 1800, positive for bacteria and yeast. Chest x-ray showed early base pneumonia, Head CT was negative for any hemorrhage or mass effect, CT abdomen and pelvis showed bilateral calculi however there was no obstruction and no hydronephrosis, also showed cystitis. 08/17/2024 Urine culture grew Klebsiella pneumonia ESBL, Providencia stuartii both sensitive to Zosyn, ertapenem and imipenem. Plan - Zosyn 3.375 every 8 hours 08/20/2024-current - Continue doxycycline 100 mg GT BID 08/23/2024-current as it is less nephrotoxic - Blood cultures preliminary negative 48 hours #Right-sided conjunctivitis Patient has red discoloration on the right eye with purulent discharge, no itching Plan ? Erythromycin ophthalmic ointment 4 times daily ? Eye care daily #Severe constipation, improving #Proctitis CT abdomen and pelvis showed severe stool impaction, appears to be compressing the urinary bladder. Associated with proctitis. Patient is bedridden, noticed some of his meds could be narcotics which may lead to stool impaction. At this time the patient was mildly dehydrated we will hold on osmotic laxatives at this time decrease the risk of worsening his dehydration. 08/19/2024: Patient had a bowel movement after the miralax and the mineral oil enema. Will continue with Miralax daily for now. Plan ? Mineral oil enema twice daily PRN ? MiraLAX daily ? Senna 1 tab daily #History of seizure disorder Plan ? Continue home Keppra 500 twice daily #History of quadriplegia status post PEG tube Plan ? Dietitian consulted ? Continue home tube feeds, Glycerna 1.2 at goal rate 60 ml/hr with free water flushes #Chronic pain Previously held methadone, resuming it as he is more awake. Patient on hospice prior to hospitalization and uses liquid morphine via GT. Plan: - Held home methadone 20 mg GT q8h due to AMS this afternoon - Pain control as needed, may add morphine IV 2 mg in pushes if patient appears in pain Hospital Maintenance: FEN: Tube feeding, Glycerna 1.2 at goal rate 60 ml/hr with free water flushes DVT ppx: Heparin subcu GI ppx: Protonix IV lines: PIV Moyer: Suprapubic catheter Code status: Full code Dispo: Med/tele Patient plan of care was discussed with the attending physician, Dr. Merino. Jess Kenyon, PGY-2 Attending Provider Attestation/Addendum Nyla Muñoz, DO, attest that I was physically present for the pascual portions of the service and evaluated the patient with the resident and I reviewed and discussed the case with the resident and agree with the resident's findings and plans of care as documented above Patient seen and evaluated this AM. Patient was alert and oriented x3, complaining of pain all over his body. Patient otherwise was on 35L/min and FIO2 of 70%. Significant other was at bedside at the time and agreed that patient was closer to baseline. Lung had mild rhonchi in b/l lung hanna. A rapid response was called at 2pm as patient had been noted by nursing staff to be less responsive. Vital signs were otherwise stable. Patient had been on hospice for pain management prior to presentation. Patient had last received his methadone at 5am. Suspect that patient was less responsive due to opioids. He received 0.4mg of IV narcan and patient immediately woke up. He was a&Ox3. He then complained of pain in his arms and was tachypneic. Methadone was held and patient was given a small dose of morphine due to pain.
[2024-08-25] VITALS (15 sets, daily range): BP systolic 106–122; BP diastolic 75–86; PULSE 85–108; RESP 18–24; TEMP 36–36.9; O2SAT 90–100; BMI 18.1
[2024-08-25] MEDS: ALBUTEROL/IPRATROPIUM (Duoneb) RT SOL 3 ML NEBU INH ×4 (01:20→18:28)
[2024-08-25] MEDS: PIPER/TAZO 3.375 GM PREMIX 3.375 GM/50 ML BAG IV ×3 (05:48→21:04)
[2024-08-25] MEDS: HEPARIN SOD INJ 5000 UNIT/ML VIAL SC ×3 (05:50→21:05)
[2024-08-25] MEDS: Erythromycin Op Oint 0.5% 1 GM PACKET RIGHT EYE ×4 (05:50→20:57)
[2024-08-25 05:58] LABS: Basophils % (Auto) 0 % (0-2.5); Eosinophils # (Auto) 0.2 Thou/mm3 (0.0-0.5); Eosinophils % (Auto) 1 % (0-10); Hematocrit 42.8 % (41.0-53.0); Hemoglobin 13.5 g/dL (13.5-16.0); Immature Granulocytes % (Auto) 1 % (0-0); Immature Granulocytes Auto 0.08 Thou/mm3 (0.00-0.00); Lymphocytes # (Auto) 1.3 Thou/mm3 (1.0-4.8); Lymphocytes % (Auto) 10 % (10-50); Mean Corpuscular HGB Conc 31.5 g/dl (31.0-37.0); Mean Corpuscular Hemoglobin 26.8 pg (25.0-35.0); Mean Corpuscular Volume 85 fL (80-100); Monocytes # (Auto) 0.8 Thou/mm3 (0.0-0.8); Monocytes % (Auto) 6 % (0-12); Neutrophils # (Auto) 11.4 Thou/mm3 (1.8-7.7); Neutrophils % (Auto) 83 % (37-80); Nucleated Red Blood Cell % 0 /100 WBC (0); Platelet Count 268 Thou/mm3 (140-440); RDW Standard Deviation 46.6 fL (35.1-43.9); Red Blood Count 5.04 Miln/mm3 (4.50-5.90); White Blood Count 13.8 Thou/mm3 (3.8-10.6)
[2024-08-25 06:35] LABS: Alanine Aminotransferase < 7 U/L (10-49); Albumin, Serum 3.7 gm/dL (3.5-5.0); Albumin/Globulin Ratio 1.2 (1.2-2.2); Alkaline Phosphatase 62 U/L (46-116); Anion Gap 9 (7-16); Aspartate Amino Transferase 10 U/L (0-34); BUN/Creatinine Ratio 33 Ratio (12-20); Bilirubin,Total 0.4 mg/dL (0.3-1.2); Blood Urea Nitrogen 13 mg/dL (9-23); Calcium 8.8 mg/dL (8.3-10.6); Carbon Dioxide 32.4 mMol/L (20.0-31.0); Chloride 103 mMol/L (98-107); Creatinine (Component) 0.4 mg/dL (0.6-1.3); Estimated Creatinine Clearance 191.8 mL/min (>60); Glucose 129 mg/dL (74-106); Osmolality,Calculated 288 (275-295); Potassium 3.4 mMol/L (3.4-5.1); Sodium 144 mMol/L (136-145); Total Protein 6.7 gm/dL (5.7-8.2); eGFR > 60 See Note
[2024-08-25] MEDS: DOXYCYCLINE 100 MG TABLET GT ×2 (08:44→20:56)
[2024-08-25] MEDS: POLYETHYLENE GLYCOL 17 GM PACKET PO (08:44)
[2024-08-25] MEDS: LANSOPRAZOLE 30 MG TAB.RAP.DR GT (08:44)
[2024-08-25] MEDS: levETIRAcetam LIQD 500 MG/5 ML UDC GT ×2 (08:44→20:56)
[2024-08-25] MEDS: METHADONE HCL 10 MG TABLET GT ×2 (13:12→21:05)
--- NOTE | 2024-08-25 14:51 | PC.SS ---
Follow up note: Pt is high flow O2 and going up. Pt is on IV antibiotic. Pt will return to [facility] with [facility] upon dc.
--- NOTE | 2024-08-25 18:46 | ESPR_ITS ---
<Statement entered by Jess Kenyon MD - 08/26/24 07:33> Patient was seen and examined by me personally. I have directly supervised and reviewed documentation by the team resident and agree with its findings with any exceptions or additional findings as below. Plan of care was discussed with the attending, Dr. Merino. Patient continues on high FiO2 requirements, continuing IV Zosyn and doxy. Patient was much more alert this morning, lucid and able to answer questions appropriately. Methadone dose was weaned down. Jess Kenyon, PGY-2 Documentation for date of: 08/25/24 Subjective Subjective Interval history: Patient was seen and examined by the bedside. No acute overnight events. Patient is AOx3, reports back pain. Saturates adequately in HFNC 35, FiO2 100%. Methadone dose was decreased to 10 mg. Will continue to try wean down oxygen. Exam Vital Signs Temp Pulse Resp BP Pulse Ox O2 Del Method O2 Flow Rate 96.8 F 95 19 106/75 94 L High Flow Nasal Cannula 35 08/25/24 16:00 08/25/24 18:32 08/25/24 18:32 08/25/24 16:00 08/25/24 18:32 08/25/24 16:00 08/25/24 18:32 FiO2 95 08/25/24 18:32 Narrative Exam Gen: Chronically ill-appearing emaciated man.AOx3. Awake and answering some questions with short phrases. HEENT: NCAT, PERRLA, EOMI, MMM, right-sided injected conjunctiva. CVS: Normal S1 and S2. RRR. No M/R/G. Resp: CTA B/L. No rhonchi, rales, crackles or wheezing. Scar in the lower portion of neck s/p tracheostomy. Abd: Noft, non-tender, non-distended. BS+ in all 4 quadrants. PEG tube in situ, site unremarkable. MSK: Chronically contracted in the upper and lower extremities. Neuro: Oriented x3. CN II-XII grossly intact. Tetraparesis. Patient slowly moves upper extremities. Objective Labs 08/26/24 04:57 08/26/24 04:57 Labs: Laboratory Results - last 24 hr 08/25/24 05:28 WBC 13.8 H RBC 5.04 Hgb 13.5 Hct 42.8 MCV 85 MCH 26.8 MCHC 31.5 RDW Std Deviation 46.6 H Plt Count 268 D Neut % (Auto) 83 H Lymph % (Auto) 10 [place] % (Auto) 6 Eos % (Auto) 1 Baso % (Auto) 0 Neut # (Auto) 11.4 H Lymph # (Auto) 1.3 [place] # (Auto) 0.8 Eos # (Auto) 0.2 Baso # (Auto) 0.0 Immature Gran # (Auto) 0.08 H Absolute Nucleated RBC 0.00 Immature Gran % 1 H Nucleated RBC % 0 Sodium 144 Potassium 3.4 Chloride 103 Carbon Dioxide 32.4 H Anion Gap 9 BUN 13 Creatinine 0.4 L Estim Creat Clear Calc 191.8 eGFR > 60 BUN/Creatinine Ratio 33 H Glucose 129 H Calculated Osmolality 288 Calcium 8.8 Corrected Calcium 9.0 Total Bilirubin 0.4 AST 10 ALT < 7 L Alkaline Phosphatase 62 Total Protein 6.7 Albumin 3.7 Globulin 3.0 Albumin/Globulin Ratio 1.2 ABG Interpretation ABG results: 08/21/24 08/21/24 08/22/24 06:20 11:50 11:19 ABG pH 7.38 7.40 ABG pCO2 54 H 53 H ABG pO2 55 L* 52 L* ABG HCO3 32 H 33 H ABG O2 Saturation 88 L 86 L ABG Base Excess 6 H 7 H VBG pH 7.39 VBG pCO2 52 VBG pO2 33 VBG Base Excess 5 H 08/24/24 15:36 ABG pH 7.50 H ABG pCO2 45 ABG pO2 65 L ABG HCO3 35 H ABG O2 Saturation 94 ABG Base Excess 11 H VBG pH VBG pCO2 VBG pO2 VBG Base Excess Quality Measures Quality Measures VTE prophylaxis Assessment & Plan Assessment Current Active Medications: Generic Name Dose Route Start Last Admin Trade Name Freq PRN Reason Stop Dose Admin Acetaminophen 650 mg 08/20/24 08:47 08/24/24 12:40 Acetaminophen 325 Mg Tablet PO 09/16/24 23:35 650 mg Q6H PRN Administration Fever >100.3 or pain 1-3 Protocol Albuterol/Ipratropium 3 ml 08/18/24 01:00 08/25/24 18:28 Albuterol/Ipratropium (Duoneb) Rt Clarissa 3 Ml Nebu INH 09/17/24 00:59 3 ml Q6HRRT ANGEL Administration Doxycycline Hyclate 100 mg 08/23/24 10:30 08/25/24 08:44 Doxycycline 100 Mg Tablet GT 08/30/24 10:29 100 mg BID ANGEL Administration Erythromycin 1 gm 08/17/24 23:45 08/25/24 16:10 Erythromycin Op Oint 0.5% 1 Gm Packet RIGHT EYE 09/16/24 23:44 1 gm QID ANGEL Administration Heparin Sodium (Porcine) 5,000 unit 08/17/24 23:45 08/25/24 13:11 Heparin Sod Inj 5000 Unit/Ml Vial SC 08/31/24 23:44 5,000 unit Q8HR ANGEL Administration Piperacillin/Tazobactam/Dextrose 3.375 gm in 50 mls @ 12.5 mls/hr 08/20/24 14:00 08/25/24 13:10 Zosyn IV 08/27/24 13:59 12.5 mls/hr Q8HR ANGEL Administration Lansoprazole 30 mg 08/23/24 09:00 08/25/24 08:44 Lansoprazole 30 Mg Tab. GT 09/17/24 08:59 30 mg QDAY ANGEL Administration Levetiracetam 500 mg 08/18/24 09:30 08/25/24 08:44 Levetiracetam Liqd 500 Mg/5 Ml Udc GT 09/17/24 09:29 500 mg BID ANGEL Administration Methadone HCl 10 mg 08/25/24 14:00 08/25/24 13:12 Methadone Hcl 10 Mg Tablet GT 08/30/24 13:59 10 mg Q8HR ANGEL Administration Mineral Oil 30 ml 08/19/24 09:54 Mineral Oil 30 Ml Udc ME 09/16/24 23:44 BID PRN Constipation Ondansetron HCl 4 mg 08/17/24 23:36 Ondansetron Inj 2 Mg/Ml Inj 2 Ml IV 09/16/24 23:35 Q6H PRN NAUSEA OR VOMITING Protocol Polyethylene Glycol 17 gm 08/20/24 09:00 08/25/24 08:44 Polyethylene Glycol 17 Gm Packet PO 09/19/24 08:59 17 gm QDAY ANGEL Administration Sennosides 1 tab 08/22/24 09:00 08/24/24 09:49 Senna Tablet PO 09/21/24 08:59 1 tab QDAY ANGEL Administration Protocol Plan 44-year-old male with past medical history of quadriplegia, seizures, s/p PEG tube placement, suprapubic catheter, chronic decubitus ulcer who was brought to the ED from SNF due to altered mental status and fever for 2 days. Patient was subsequently admitted for treatment of sepsis secondary to UTI and pneumonia. #Acute hypoxic respiratory failure #Right lower lobe pneumonia, likely secondary to aspiration Patient initially came saturating well on room air, but slowly started to have increasing O2 requirements. COVID, flu, RSV were negative Cocci serology was negative MRSA screening negative Discontinued ceftriaxone and azithromycin for both pneumonia and UTI due to resistance of urine micro 08/20/24 08/21/24: Patient noted to start required Hi-Flow O2. X-ray showed worsening pneumonia. Due to acute encephalopathy, patient may have had an aspiration episode. 08/22/24: VBG showed pH 7.39, PCO2 52. Plan - Continue IV Zosyn 3.375 mg q8h for ESBL UTI - Continue Hi-Flow NC, wean as tolerated - Sputum culture pending - Aspiration precautions #Acute metabolic encephalopathy - improving #Sepsis, secondary to UTI - resolved #Providencia stuartii and Klebsiella pneumoniae UTI Patient with chronic suprapubic catheter, presented with tachycardia and fevers at his nursing facility. Urinalysis showed dark orange, turbid sample, with positive ketones, proteins and blood, WBCs more than 1800, positive for bacteria and yeast. Chest x-ray showed early base pneumonia, Head CT was negative for any hemorrhage or mass effect, CT abdomen and pelvis showed bilateral calculi however there was no obstruction and no hydronephrosis, also showed cystitis. 08/17/2024 Urine culture grew Klebsiella pneumonia ESBL, Providencia stuartii both sensitive to Zosyn, ertapenem and imipenem. Plan - Zosyn 3.375 every 8 hours 08/20/2024-current - Continue doxycycline 100 mg GT BID 08/23/2024-current as it is less nephrotoxic - Blood cultures preliminary negative 48 hours #Right-sided conjunctivitis Patient has red discoloration on the right eye with purulent discharge, no itching Plan ? Erythromycin ophthalmic ointment 4 times daily ? Eye care daily #Severe constipation, improving #Proctitis CT abdomen and pelvis showed severe stool impaction, appears to be compressing the urinary bladder. Associated with proctitis. Patient is bedridden, noticed some of his meds could be narcotics which may lead to stool impaction. At this time the patient was mildly dehydrated we will hold on osmotic laxatives at this time decrease the risk of worsening his dehydration. 08/19/2024: Patient had a bowel movement after the miralax and the mineral oil enema. Will continue with Miralax daily for now. Plan ? Mineral oil enema twice daily PRN ? MiraLAX daily ? Senna 1 tab daily prn #History of seizure disorder Plan ? Continue home Keppra 500 twice daily #History of quadriplegia status post PEG tube Plan ? Dietitian consulted ? Continue home tube feeds, Glycerna 1.2 at goal rate 60 ml/hr with free water flushes #Chronic pain Previously held methadone, resuming it as he is more awake. Patient on hospice prior to hospitalization and uses liquid morphine via GT. Plan: - methadone dose decreased to 10 mg GT q8h due to AMS previously - Pain control as needed, may add morphine IV 2 mg in pushes if patient appears in pain Hospital Maintenance: FEN: Tube feeding, Glycerna 1.2 at goal rate 60 ml/hr with free water flushes DVT ppx: Heparin subcu GI ppx: Protonix IV lines: PIV Moyer: Suprapubic catheter Code status: Full code Dispo: Med/tele Plan of care discussed with attending Dr. Merino, PGY-[address] Kenyon. Radha Oliveira MD, PGY 1. Attending Provider Attestation/Addendum Nyla Muñoz DO, attest that I was physically present for the pascual portions of the service and evaluated the patient with the resident and I reviewed and discussed the case with the resident and agree with the resident's findings and plans of care as documented above Patient seen and evaluated this AM. Patient's mental status had improved with holding methadone, but concerning for withdrawals as he is tachycardic and has loose stools. Will decrease previous methadone dose by half and titrate as tolerated. He remains on HFNC with flow of 30L/min and 90% Fio2. Continue with IV abx. No acute events overnight otherwise.
[2024-08-26] VITALS (15 sets, daily range): BP systolic 96–113; BP diastolic 62–76; PULSE 83–112; RESP 16–30; TEMP 36.2–37.4; O2SAT 88–100
[2024-08-26] MEDS: ALBUTEROL/IPRATROPIUM (Duoneb) RT SOL 3 ML NEBU INH ×4 (00:45→18:24)
[2024-08-26] MEDS: PIPER/TAZO 3.375 GM PREMIX 3.375 GM/50 ML BAG IV ×3 (05:08→21:15)
[2024-08-26] MEDS: METHADONE HCL 10 MG TABLET GT (05:09)
[2024-08-26] MEDS: HEPARIN SOD INJ 5000 UNIT/ML VIAL SC ×3 (05:12→21:18)
[2024-08-26] MEDS: Erythromycin Op Oint 0.5% 1 GM PACKET RIGHT EYE ×4 (05:12→20:25)
[2024-08-26 06:04] LABS: Basophils % (Auto) 0 % (0-2.5); Eosinophils # (Auto) 0.3 Thou/mm3 (0.0-0.5); Eosinophils % (Auto) 2 % (0-10); Hematocrit 41.6 % (41.0-53.0); Hemoglobin 13.4 g/dL (13.5-16.0); Immature Granulocytes % (Auto) 1 % (0-0); Immature Granulocytes Auto 0.11 Thou/mm3 (0.00-0.00); Lymphocytes # (Auto) 1.7 Thou/mm3 (1.0-4.8); Lymphocytes % (Auto) 11 % (10-50); Mean Corpuscular HGB Conc 32.2 g/dl (31.0-37.0); Mean Corpuscular Volume 84 fL (80-100); Monocytes # (Auto) 1.1 Thou/mm3 (0.0-0.8); Monocytes % (Auto) 7 % (0-12); Neutrophils # (Auto) 12.3 Thou/mm3 (1.8-7.7); Neutrophils % (Auto) 80 % (37-80); Nucleated Red Blood Cell % 0 /100 WBC (0); Platelet Count 249 Thou/mm3 (140-440); RDW Standard Deviation 47.2 fL (35.1-43.9); Red Blood Count 4.97 Miln/mm3 (4.50-5.90); White Blood Count 15.4 Thou/mm3 (3.8-10.6)
[2024-08-26 06:44] LABS: Alanine Aminotransferase < 7 U/L (10-49); Albumin, Serum 3.6 gm/dL (3.5-5.0); Albumin/Globulin Ratio 1.2 (1.2-2.2); Alkaline Phosphatase 65 U/L (46-116); Anion Gap 9 (7-16); Aspartate Amino Transferase 10 U/L (0-34); BUN/Creatinine Ratio 28 Ratio (12-20); Bilirubin,Total 0.5 mg/dL (0.3-1.2); Blood Urea Nitrogen 11 mg/dL (9-23); Calcium 8.8 mg/dL (8.3-10.6); Calcium (Corrected) 9.1 mg/dL (8.5-10.1); Carbon Dioxide 29.3 mMol/L (20.0-31.0); Chloride 104 mMol/L (98-107); Creatinine (Component) 0.4 mg/dL (0.6-1.3); Estimated Creatinine Clearance 184.9 mL/min (>60); Glucose 124 mg/dL (74-106); Osmolality,Calculated 283 (275-295); Potassium 3.7 mMol/L (3.4-5.1); Sodium 142 mMol/L (136-145); Total Protein 6.6 gm/dL (5.7-8.2); eGFR > 60 See Note
[2024-08-26] MEDS: POLYETHYLENE GLYCOL 17 GM PACKET PO (09:38)
[2024-08-26] MEDS: DOXYCYCLINE 100 MG TABLET GT ×2 (09:39→20:21)
[2024-08-26] MEDS: levETIRAcetam LIQD 500 MG/5 ML UDC GT ×2 (09:39→20:21)
[2024-08-26] MEDS: LANSOPRAZOLE 30 MG TAB.RAP.DR GT (09:39)
--- NOTE | 2024-08-26 14:59 | ESPR_ITS ---
<Statement entered by Jess Kenyon MD - 08/27/24 08:30> Patient was seen and examined by me personally. I have directly supervised and reviewed documentation by the team resident and agree with its findings with any exceptions or additional findings as below. Plan of care was discussed with the attending, Dr. Aleman. Jess Kenyon, PGY-2 Documentation for date of: 08/26/24 Subjective Subjective Interval history: Patient was seen and examined by the bedside. No acute overnight events. Patient today appears somnolent, had soft blood pressure. Methadone 10mg dose at 14:00 was held. Decreased dose of methadone to 5 mg. Saturates well on HFNC 30L 65%. Will continue with antibiotics and will cautiously titrate pain medications. Exam Vital Signs Temp Pulse Resp BP Pulse Ox O2 Del Method O2 Flow Rate 97.4 F 95 18 99/68 98 High Flow Nasal Cannula 30 08/26/24 12:00 08/26/24 14:51 08/26/24 14:51 08/26/24 12:00 08/26/24 14:51 08/26/24 12:00 08/26/24 14:51 FiO2 65 08/26/24 14:51 Narrative Exam Gen: Chronically ill-appearing emaciated man. Appears somnolent, weak. HEENT: NCAT, PERRLA, EOMI, MMM, right-sided injected conjunctiva. CVS: Normal S1 and S2. RRR. No M/R/G. Resp: CTA B/L. No rhonchi, rales, crackles or wheezing. Scar in the lower portion of neck s/p tracheostomy. Abd: Noft, non-tender, non-distended. BS+ in all 4 quadrants. PEG tube in situ, site unremarkable. MSK: Chronically contracted in the upper and lower extremities. Neuro: AOx0. CN II-XII grossly intact. Tetraparesis. Patient slowly moves upper extremities. Objective Labs 08/26/24 04:57 08/26/24 04:57 Labs: Laboratory Results - last 24 hr 08/26/24 04:57 WBC 15.4 H RBC 4.97 Hgb 13.4 L Hct 41.6 MCV 84 MCH 27.0 MCHC 32.2 RDW Std Deviation 47.2 H Plt Count 249 Neut % (Auto) 80 Lymph % (Auto) 11 [place] % (Auto) 7 Eos % (Auto) 2 Baso % (Auto) 0 Neut # (Auto) 12.3 H Lymph # (Auto) 1.7 [place] # (Auto) 1.1 H Eos # (Auto) 0.3 Baso # (Auto) 0.0 Immature Gran # (Auto) 0.11 H Absolute Nucleated RBC 0.00 Immature Gran % 1 H Nucleated RBC % 0 Sodium 142 Potassium 3.7 Chloride 104 Carbon Dioxide 29.3 Anion Gap 9 BUN 11 Creatinine 0.4 L Estim Creat Clear Calc 184.9 eGFR > 60 BUN/Creatinine Ratio 28 H Glucose 124 H Calculated Osmolality 283 Calcium 8.8 Corrected Calcium 9.1 Total Bilirubin 0.5 AST 10 ALT < 7 L Alkaline Phosphatase 65 Total Protein 6.6 Albumin 3.6 Globulin 3.0 Albumin/Globulin Ratio 1.2 ABG Interpretation ABG results: 08/21/24 08/21/24 08/22/24 06:20 11:50 11:19 ABG pH 7.38 7.40 ABG pCO2 54 H 53 H ABG pO2 55 L* 52 L* ABG HCO3 32 H 33 H ABG O2 Saturation 88 L 86 L ABG Base Excess 6 H 7 H VBG pH 7.39 VBG pCO2 52 VBG pO2 33 VBG Base Excess 5 H 08/24/24 15:36 ABG pH 7.50 H ABG pCO2 45 ABG pO2 65 L ABG HCO3 35 H ABG O2 Saturation 94 ABG Base Excess 11 H VBG pH VBG pCO2 VBG pO2 VBG Base Excess Quality Measures Quality Measures VTE prophylaxis Assessment & Plan Assessment Current Active Medications: Generic Name Dose Route Start Last Admin Trade Name Josesito PRN Reason Stop Dose Admin Acetaminophen 650 mg 08/20/24 08:47 08/24/24 12:40 Acetaminophen 325 Mg Tablet PO 09/16/24 23:35 650 mg Q6H PRN Administration Fever >100.3 or pain 1-3 Protocol Albuterol/Ipratropium 3 ml 08/18/24 01:00 08/26/24 12:16 Albuterol/Ipratropium (Duoneb) Rt Clarissa 3 Ml Nebu INH 09/17/24 00:59 3 ml Q6HRRT ANGEL Administration Doxycycline Hyclate 100 mg 08/23/24 10:30 08/26/24 09:39 Doxycycline 100 Mg Tablet GT 08/30/24 10:29 100 mg BID ANGEL Administration Erythromycin 1 gm 08/17/24 23:45 08/26/24 11:47 Erythromycin Op Oint 0.5% 1 Gm Packet RIGHT EYE 09/16/24 23:44 1 gm QID ANGEL Administration Heparin Sodium (Porcine) 5,000 unit 08/17/24 23:45 08/26/24 13:46 Heparin Sod Inj 5000 Unit/Ml Vial SC 08/31/24 23:44 5,000 unit Q8HR ANGEL Administration Piperacillin/Tazobactam/Dextrose 3.375 gm in 50 mls @ 12.5 mls/hr 08/20/24 14:00 08/26/24 13:46 Zosyn IV 08/27/24 13:59 12.5 mls/hr Q8HR ANGEL Administration Lansoprazole 30 mg 08/23/24 09:00 08/26/24 09:39 Lansoprazole 30 Mg Tab. GT 09/17/24 08:59 30 mg QDAY ANGEL Administration Levetiracetam 500 mg 08/18/24 09:30 08/26/24 09:39 Levetiracetam Liqd 500 Mg/5 Ml Udc GT 09/17/24 09:29 500 mg BID ANGEL Administration Methadone HCl 10 mg 08/25/24 14:00 08/26/24 13:46 Methadone Hcl 10 Mg Tablet GT 08/30/24 13:59 Not Given Q8HR ANGEL Mineral Oil 30 ml 08/19/24 09:54 Mineral Oil 30 Ml Udc RI 09/16/24 23:44 BID PRN Constipation Ondansetron HCl 4 mg 08/17/24 23:36 Ondansetron Inj 2 Mg/Ml Inj 2 Ml IV 09/16/24 23:35 Q6H PRN NAUSEA OR VOMITING Protocol Polyethylene Glycol 17 gm 08/20/24 09:00 08/26/24 09:38 Polyethylene Glycol 17 Gm Packet PO 09/19/24 08:59 17 gm QDAY ANGEL Administration Sennosides 1 tab 08/22/24 09:00 08/24/24 09:49 Senna Tablet PO 09/21/24 08:59 1 tab QDAY ANGEL Administration Protocol Plan 44-year-old male with past medical history of quadriplegia, seizures, s/p PEG tube placement, suprapubic catheter, chronic decubitus ulcer who was brought to the ED from SNF due to altered mental status and fever for 2 days. Patient was subsequently admitted for treatment of sepsis secondary to UTI and pneumonia. #Acute hypoxic respiratory failure #Right lower lobe pneumonia, likely secondary to aspiration #Pseudomonas pheumonia Patient initially came saturating well on room air, but slowly started to have increasing O2 requirements. COVID, flu, RSV were negative Cocci serology was negative MRSA screening negative Discontinued ceftriaxone and azithromycin for both pneumonia and UTI due to resistance of urine micro 08/20/24 08/21/24: Patient noted to start required Hi-Flow O2. X-ray showed worsening pneumonia. Due to acute encephalopathy, patient may have had an aspiration episode. 08/22/24: VBG showed pH 7.39, PCO2 52. Sputum culture grew Pseudomonas sensitive to Zosyn. Plan - Continue IV Zosyn 3.375 mg q8h for ESBL UTI - Continue Hi-Flow NC, wean as tolerated - Sputum culture pending - Aspiration precautions #Acute metabolic encephalopathy #Sepsis, secondary to UTI - resolved #Providencia stuartii and Klebsiella pneumoniae UTI Patient with chronic suprapubic catheter, presented with tachycardia and fevers at his nursing facility. Urinalysis showed dark orange, turbid sample, with positive ketones, proteins and blood, WBCs more than 1800, positive for bacteria and yeast. Chest x-ray showed early base pneumonia, Head CT was negative for any hemorrhage or mass effect, CT abdomen and pelvis showed bilateral calculi however there was no obstruction and no hydronephrosis, also showed cystitis. 08/17/2024 Urine culture grew Klebsiella pneumonia ESBL, Providencia stuartii both sensitive to Zosyn, ertapenem and imipenem. Plan - Zosyn 3.375 every 8 hours 08/20/2024-current - Continue doxycycline 100 mg GT BID 08/23/2024-current as it is less nephrotoxic - Blood cultures preliminary negative 48 hours - Slowly titrate methadone due to concern of exacerbating the encephalopathy #Right-sided conjunctivitis Patient has red discoloration on the right eye with purulent discharge, no itching Plan ? Erythromycin ophthalmic ointment 4 times daily ? Eye care daily #Severe constipation, improving #Proctitis CT abdomen and pelvis showed severe stool impaction, appears to be compressing the urinary bladder. Associated with proctitis. Patient is bedridden, noticed some of his meds could be narcotics which may lead to stool impaction. At this time the patient was mildly dehydrated we will hold on osmotic laxatives at this time decrease the risk of worsening his dehydration. 08/19/2024: Patient had a bowel movement after the miralax and the mineral oil enema. Will continue with Miralax daily for now. Plan ? Mineral oil enema twice daily PRN ? MiraLAX daily ? Senna 1 tab daily prn #History of seizure disorder Plan ? Continue home Keppra 500 twice daily #History of quadriplegia status post PEG tube Plan ? Dietitian consulted ? Continue home tube feeds, Glycerna 1.2 at goal rate 60 ml/hr with free water flushes #Chronic pain Previously held methadone, resuming it as he is more awake. Patient on hospice prior to hospitalization and uses liquid morphine via GT. Plan: - methadone dose decreased to 5 mg from 10 mg GT q8h due to AMS previously - Pain control as needed, may add morphine IV 2 mg in pushes if patient appears in pain Hospital Maintenance: FEN: Tube feeding, Glycerna 1.2 at goal rate 60 ml/hr with free water flushes DVT ppx: Heparin subcu GI ppx: Protonix IV lines: PIV Moyer: Suprapubic catheter Code status: Full code Dispo: Med/tele Plan of care discussed with attending Dr. Merino, PGY-[address] Kenyon. Radha Oliveira MD, PGY 1. Attending Provider Attestation/Addendum I attest that I was physically present for the evaluation, physical examination, lab and imaging review of the patient with the residents. I discussed the case with the residents and agree with the findings and plans of care as documented above. At bedside today, patient appears awake and alert but frail. Patient has been being on and off somnolent. Continues to be on high flow nasal cannula, 30 L, 65% FiO2 currently. Decreased methadone dosing to 5 mg 3 times daily. Continues to be on IV Zosyn for Pseudomonas pneumonia and ESBL UTI. Continues to be on aspiration precautions. WBC count noted to be uptrending. No signs of obvious new infection. Patient does have pressure sore, does not appear to be infected. We will continue to monitor closely and look for any source of infection. Blood cultures have been negative. Patient is on tube feedings, tolerating well. We will continue to wean down on oxygen as tolerated. Lizandro Aleman MD
--- NOTE | 2024-08-26 15:17 | PC.SS ---
Rounding: on IV ABX, pt is also on 35L O2
[2024-08-26] MEDS: METHADONE HCL 10 MG TABLET 5 MG GT (22:03)
[2024-08-27] VITALS (16 sets, daily range): BP systolic 90–132; BP diastolic 63–78; PULSE 84–106; RESP 16–28; TEMP 36.3–36.6; O2SAT 85–94
[2024-08-27] MEDS: ALBUTEROL/IPRATROPIUM (Duoneb) RT SOL 3 ML NEBU INH ×4 (00:39→18:43)
[2024-08-27] MEDS: METHADONE HCL 10 MG TABLET 5 MG GT ×3 (06:01→22:31)
[2024-08-27] MEDS: PIPER/TAZO 3.375 GM PREMIX 3.375 GM/50 ML BAG IV (06:03)
[2024-08-27] MEDS: HEPARIN SOD INJ 5000 UNIT/ML VIAL SC ×3 (06:04→22:29)
[2024-08-27] MEDS: Erythromycin Op Oint 0.5% 1 GM PACKET RIGHT EYE ×2 (06:06→11:25)
[2024-08-27] MEDS: POLYETHYLENE GLYCOL 17 GM PACKET PO (09:22)
[2024-08-27] MEDS: levETIRAcetam LIQD 500 MG/5 ML UDC GT ×2 (09:22→20:32)
[2024-08-27] MEDS: DOXYCYCLINE 100 MG TABLET GT ×2 (09:23→20:32)
[2024-08-27] MEDS: LANSOPRAZOLE 30 MG TAB.RAP.DR GT (09:23)
--- NOTE | 2024-08-27 15:27 | PC.SS ---
Rounding: on IV ABX continue to wean down O2
--- NOTE | 2024-08-27 16:22 | ESPR_ITS ---
<Statement entered by Jess Kenyon MD - 08/28/24 07:45> Patient was seen and examined by me personally. I have directly supervised and reviewed documentation by the team resident and agree with its findings with any exceptions or additional findings as below. Plan of care was discussed with the attending, Dr. Aleman. Jess Kenyon, PGY-2 Documentation for date of: 08/27/24 Subjective Subjective Interval history: Patient was seen and examined by the bedside. No acute overnight events. Patient has reported his breathing has improved, AAO x 2. Saturates adequately on high flow nasal cannula 3 L, FiO2 60%. Continues to receive IV antibiotics. Continues to be on methadone 5 mg every 8 hours. Will Cautiously try to wean down the oxygen. Exam Vital Signs Temp Pulse Resp BP Pulse Ox O2 Del Method O2 Flow Rate 97.4 F 106 H 18 132/66 H 85 L High Flow Nasal Cannula 30 08/27/24 12:00 08/27/24 15:30 08/27/24 15:30 08/27/24 12:00 08/27/24 15:30 08/27/24 12:00 08/27/24 15:30 FiO2 60 08/27/24 15:30 Narrative Exam Gen: Chronically ill-appearing emaciated man. Appears weak. HEENT: NCAT, PERRLA, EOMI, MMM, right-sided injected conjunctiva. CVS: Normal S1 and S2. RRR. No M/R/G. Resp: CTA B/L. No rhonchi, rales, crackles or wheezing. Scar in the lower portion of neck s/p tracheostomy. Abd: Noft, non-tender, non-distended. BS+ in all 4 quadrants. PEG tube in situ, site unremarkable. MSK: Chronically contracted in the upper and lower extremities. Neuro: AOx2. CN II-XII grossly intact. Tetraparesis. Patient slowly moves upper extremities. Objective Labs 08/26/24 04:57 08/26/24 04:57 ABG Interpretation ABG results: 08/21/24 08/21/24 08/22/24 06:20 11:50 11:19 ABG pH 7.38 7.40 ABG pCO2 54 H 53 H ABG pO2 55 L* 52 L* ABG HCO3 32 H 33 H ABG O2 Saturation 88 L 86 L ABG Base Excess 6 H 7 H VBG pH 7.39 VBG pCO2 52 VBG pO2 33 VBG Base Excess 5 H 08/24/24 15:36 ABG pH 7.50 H ABG pCO2 45 ABG pO2 65 L ABG HCO3 35 H ABG O2 Saturation 94 ABG Base Excess 11 H VBG pH VBG pCO2 VBG pO2 VBG Base Excess Quality Measures Quality Measures VTE prophylaxis Assessment & Plan Assessment Current Active Medications: Generic Name Dose Route Start Last Admin Trade Name Freq PRN Reason Stop Dose Admin Acetaminophen 650 mg 08/20/24 08:47 08/24/24 12:40 Acetaminophen 325 Mg Tablet PO 09/16/24 23:35 650 mg Q6H PRN Administration Fever >100.3 or pain 1-3 Protocol Albuterol/Ipratropium 3 ml 08/18/24 01:00 08/27/24 12:09 Albuterol/Ipratropium (Duoneb) Rt Clarissa 3 Ml Nebu INH 09/17/24 00:59 3 ml Q6HRRT ANGEL Administration Doxycycline Hyclate 100 mg 08/23/24 10:30 08/27/24 09:23 Doxycycline 100 Mg Tablet GT 08/30/24 10:29 100 mg BID AGNEL Administration Erythromycin 1 gm 08/17/24 23:45 08/27/24 11:25 Erythromycin Op Oint 0.5% 1 Gm Packet RIGHT EYE 09/16/24 23:44 1 gm QID ANGEL Administration Heparin Sodium (Porcine) 5,000 unit 08/17/24 23:45 08/27/24 13:51 Heparin Sod Inj 5000 Unit/Ml Vial SC 08/31/24 23:44 5,000 unit Q8HR ANGEL Administration Lansoprazole 30 mg 08/23/24 09:00 08/27/24 09:23 Lansoprazole 30 Mg Tab.Rap. GT 09/17/24 08:59 30 mg QDAY ANGEL Administration Levetiracetam 500 mg 08/18/24 09:30 08/27/24 09:22 Levetiracetam Liqd 500 Mg/5 Ml Udc GT 09/17/24 09:29 500 mg BID ANGEL Administration Methadone HCl 5 mg 08/26/24 22:00 08/27/24 13:50 Methadone Hcl 10 Mg Tablet GT 08/31/24 21:59 5 mg Q8HR ANGEL Administration Mineral Oil 30 ml 08/19/24 09:54 Mineral Oil 30 Ml Udc MO 09/16/24 23:44 BID PRN Constipation Ondansetron HCl 4 mg 08/17/24 23:36 Ondansetron Inj 2 Mg/Ml Inj 2 Ml IV 09/16/24 23:35 Q6H PRN NAUSEA OR VOMITING Protocol Polyethylene Glycol 17 gm 08/20/24 09:00 08/27/24 09:22 Polyethylene Glycol 17 Gm Packet PO 09/19/24 08:59 17 gm QDAY ANGEL Administration Sennosides 1 tab 08/22/24 09:00 08/24/24 09:49 Senna Tablet PO 09/21/24 08:59 1 tab QDAY ANGEL Administration Protocol Plan 44-year-old male with past medical history of quadriplegia, seizures, s/p PEG tube placement, suprapubic catheter, chronic decubitus ulcer who was brought to the ED from SNF due to altered mental status and fever for 2 days. Patient was subsequently admitted for treatment of sepsis secondary to UTI and pneumonia. #Acute hypoxic respiratory failure #Right lower lobe pneumonia, likely secondary to aspiration #Pseudomonas pheumonia Patient initially came saturating well on room air, but slowly started to have increasing O2 requirements. COVID, flu, RSV were negative Cocci serology was negative MRSA screening negative Discontinued ceftriaxone and azithromycin for both pneumonia and UTI due to resistance of urine micro 08/20/24 08/21/24: Patient noted to start required Hi-Flow O2. X-ray showed worsening pneumonia. Due to acute encephalopathy, patient may have had an aspiration episode. 08/22/24: VBG showed pH 7.39, PCO2 52. Sputum culture grew Pseudomonas sensitive to Zosyn. Plan - Continue IV Zosyn 3.375 mg q8h for ESBL UTI - Continue Hi-Flow NC, wean as tolerated - Sputum culture grew Pseudomonas sensitive to Zosyn - Aspiration precautions #Acute metabolic encephalopathy #Sepsis, secondary to UTI - resolved #Providencia stuartii and Klebsiella pneumoniae UTI Patient with chronic suprapubic catheter, presented with tachycardia and fevers at his nursing facility. Urinalysis showed dark orange, turbid sample, with positive ketones, proteins and blood, WBCs more than 1800, positive for bacteria and yeast. Chest x-ray showed early base pneumonia, Head CT was negative for any hemorrhage or mass effect, CT abdomen and pelvis showed bilateral calculi however there was no obstruction and no hydronephrosis, also showed cystitis. 08/17/2024 Urine culture grew Klebsiella pneumonia ESBL, Providencia stuartii both sensitive to Zosyn, ertapenem and imipenem. Plan - Zosyn 3.375 every 8 hours 08/20/2024-current - Continue doxycycline 100 mg GT BID 08/23/2024-current as it is less nephrotoxic - Blood cultures negative 48 hours - Slowly titrate methadone due to concern of exacerbating the encephalopathy #Right-sided conjunctivitis, improving Patient has red discoloration on the right eye with purulent discharge, no itching Erythromycin ophthalmic ointment 4 times daily discontinued, received 7 days total. Plan ? Eye care daily #Severe constipation, improving #Proctitis CT abdomen and pelvis showed severe stool impaction, appears to be compressing the urinary bladder. Associated with proctitis. Patient is bedridden, noticed some of his meds could be narcotics which may lead to stool impaction. At this time the patient was mildly dehydrated we will hold on osmotic laxatives at this time decrease the risk of worsening his dehydration. 08/19/2024: Patient had a bowel movement after the miralax and the mineral oil enema. Will continue with Miralax daily for now. Plan ? Mineral oil enema twice daily PRN ? MiraLAX daily ? Senna 1 tab daily prn #History of seizure disorder Plan ? Continue home Keppra 500 twice daily #History of quadriplegia status post PEG tube Plan ? Dietitian consulted ? Continue home tube feeds, Glycerna 1.2 at goal rate 60 ml/hr with free water flushes #Chronic pain Previously held methadone, resuming it as he is more awake. Patient on hospice prior to hospitalization and uses liquid morphine via GT. Plan: - methadone dose decreased to 5 mg from 10 mg GT q8h due to AMS previously - Pain control as needed, may add morphine IV 2 mg in pushes if patient appears in pain Hospital Maintenance: FEN: Tube feeding, Glycerna 1.2 at goal rate 60 ml/hr with free water flushes DVT ppx: Heparin subcu GI ppx: Protonix IV lines: PIV Moyer: Suprapubic catheter Code status: Full code Dispo: Med/tele Plan of care discussed with attending Dr. Aleman, PGY-[address] Kenyon, PGY-3 Dr. Gaxiola. Radha Oliveira MD, PGY 1. Attending Provider Attestation/Addendum I attest that I was physically present for the evaluation, physical examination, lab and imaging review of the patient with the residents. I discussed the case with the residents and agree with the findings and plans of care as documented above. At bedside today, patient appears more alert and awake compared to yesterday. Was able to answer questions and few words. Continues to be on high flow nasal cannula, currently on 30 L, 60 FiO2. We will continue to wean down as tolerated. Continues to be on IV antibiotics for Pseudomonas pneumonia and UTI. Lizadnro Aleman MD
[2024-08-28] VITALS (31 sets, daily range): BP systolic 80–128; BP diastolic 60–98; PULSE 81–109; RESP 13–42; TEMP 36.2–37.2; O2SAT 72–100
--- NOTE | 2024-08-28 03:41 | PC.NURSE ---
Chart accessed to assist main RN.
--- NOTE | 2024-08-28 05:00 | PC.NURSE ---
Patient requesting pain meds for 10/[address] Steward and Dr. Steward said to call him back with a little more information from the patient. Dr. Steward wanted RN to ask patient where is the pain, does the pain radiate, the quality of the pain, and how long has the pain been going on. Patient says he has pain all over his body and that it has been going on for a while. Patient rates pain 10/10. RN told patient that he has methadone due at 6am and patient closed his eyes and looked away.
[2024-08-28] MEDS: HEPARIN SOD INJ 5000 UNIT/ML VIAL SC ×3 (05:58→21:43)
[2024-08-28] MEDS: METHADONE HCL 10 MG TABLET 5 MG GT ×2 (05:59→13:32)
[2024-08-28 06:30] LABS: Basophils % (Auto) 0 % (0-2.5); Eosinophils # (Auto) 0.3 Thou/mm3 (0.0-0.5); Eosinophils % (Auto) 2 % (0-10); Hematocrit 40.7 % (41.0-53.0); Hemoglobin 13.1 g/dL (13.5-16.0); Immature Granulocytes % (Auto) 1 % (0-0); Immature Granulocytes Auto 0.07 Thou/mm3 (0.00-0.00); Lymphocytes % (Auto) 13 % (10-50); Mean Corpuscular HGB Conc 32.2 g/dl (31.0-37.0); Mean Corpuscular Hemoglobin 26.8 pg (25.0-35.0); Mean Corpuscular Volume 83 fL (80-100); Monocytes % (Auto) 7 % (0-12); Neutrophils % (Auto) 78 % (37-80); Nucleated Red Blood Cell % 0 /100 WBC (0); Platelet Count 297 Thou/mm3 (140-440); RDW Standard Deviation 48.4 fL (35.1-43.9); Red Blood Count 4.89 Miln/mm3 (4.50-5.90); White Blood Count 15.4 Thou/mm3 (3.8-10.6)
[2024-08-28 06:52] LABS: Alanine Aminotransferase 12 U/L (10-49); Albumin, Serum 3.5 gm/dL (3.5-5.0); Albumin/Globulin Ratio 1.1 (1.2-2.2); Alkaline Phosphatase 64 U/L (46-116); Anion Gap 10 (7-16); Aspartate Amino Transferase 15 U/L (0-34); BUN/Creatinine Ratio 30 Ratio (12-20); Bilirubin,Total 0.4 mg/dL (0.3-1.2); Blood Urea Nitrogen 12 mg/dL (9-23); Calcium 8.7 mg/dL (8.3-10.6); Calcium (Corrected) 9.1 mg/dL (8.5-10.1); Carbon Dioxide 27.3 mMol/L (20.0-31.0); Chloride 105 mMol/L (98-107); Creatinine (Component) 0.4 mg/dL (0.6-1.3); Estimated Creatinine Clearance 183.6 mL/min (>60); Globulin 3.1 gm/dL (2.3-3.5); Glucose 119 mg/dL (74-106); Osmolality,Calculated 283 (275-295); Potassium 4.3 mMol/L (3.4-5.1); Sodium 142 mMol/L (136-145); Total Protein 6.6 gm/dL (5.7-8.2); eGFR > 60 See Note
[2024-08-28] MEDS: ALBUTEROL/IPRATROPIUM (Duoneb) RT SOL 3 ML NEBU INH ×3 (07:00→19:40)
--- NOTE | 2024-08-28 08:20 | XR_ITS ---
Examination: AP chest single view Technique one\\: AP portable semiupright chest single view Exam date and time: August 28, 2024 0836 hours COMPARISON: August 24, 2024 INDICATIONS: Shortness of breath today. FINDINGS: Interval total right lung atelectasis Left lung clear Multiple old left-sided rib fractures Lower cervical orthopedic hardware IMPRESSION: Interval total right lung atelectasis, consider mucous plugs in right bronchial tree
[2024-08-28] MEDS: POLYETHYLENE GLYCOL 17 GM PACKET PO (09:04)
[2024-08-28] MEDS: levETIRAcetam LIQD 500 MG/5 ML UDC GT ×2 (09:05→20:15)
[2024-08-28] MEDS: LANSOPRAZOLE 30 MG TAB.RAP.DR GT (09:05)
[2024-08-28] MEDS: DOXYCYCLINE 100 MG TABLET GT (09:05)
--- NOTE | 2024-08-28 16:17 | PC.SS ---
Follow up note: Pt is on high flow O2. Pt is on IV antibiotic. Tube Laser Operator is consulting
--- NOTE | 2024-08-28 16:21 | ESPR_ITS ---
<Statement entered by Jess Kenyon MD - 08/29/24 13:43> Patient was seen and examined by me personally. I have directly supervised and reviewed documentation by the team resident and agree with its findings with any exceptions or additional findings as below. Plan of care was discussed with the attending, Dr. Aleman. This morning, patient was seen and appropriately interactive, as his baseline. Methadone has been weaned down from 10 mg to 5 mg q8h as it appears to improve his mental status. He continues to be on 70% FiO2 on Hi-Flow. Course of IV Zosyn was completed today for 7 days. Chest X-ray this morning showed interval total right lung atelectasis and probably right bronchial mucous plugging. Consultation was requested of diamond cleaner Dr. Song who recommended initiation of 3-4% hypertonic saline treatments TID for 20 minutes along with vibration vest physiotherapy. Due to his quadriplegic status he is high risk for receiving sedation during a bronchoscopy procedure without intubation. Patient will need to be suctioned and tended to during these treatments in order to help expectoration of mucous. Patient is to be propped to his left side or sitting up as he has been leaning towards the right consistently. Orders initiated. Jess Kenyon, PGY-2 Documentation for date of: 08/28/24 Subjective Subjective Interval history: Patient was seen and examined by the bedside. No acute overnight events. Patient reports mild pain, continues to be on HFNC. Repeat chest x-ray showed interval right total lung atelectasis, concern for mucous plugs in the right bronchial tree. Contacted Dr. Song, diamond cleaner who recommended to try vest physiotherapy with hypertonic normal saline solution inhalations and positional drainage. If that does not work, patient would require a bronchoscopy and taking into consideration his high oxygen requirement he would require intubation for the procedure which is not favorable in the setting of his comorbidities. Exam Vital Signs Temp Pulse Resp BP Pulse Ox O2 Del Method O2 Flow Rate 97.1 F 92 18 98/66 93 L High Flow Nasal Cannula 30 08/28/24 12:00 08/28/24 16:00 08/28/24 15:19 08/28/24 12:00 08/28/24 15:19 08/28/24 08:00 08/28/24 15:19 FiO2 70 08/28/24 15:19 Narrative Exam Gen: Chronically ill-appearing emaciated man. Appears weak. AOx2. HEENT: NCAT, PERRLA, EOMI, MMM, right-sided injected conjunctiva. CVS: Normal S1 and S2. RRR. No M/R/G. Resp: CTA B/L. No rhonchi, rales, crackles or wheezing. Scar in the lower portion of neck s/p tracheostomy. Abd: Noft, non-tender, non-distended. BS+ in all 4 quadrants. PEG tube in situ, site unremarkable. MSK: Chronically contracted in the upper and lower extremities. Neuro: CN II-XII grossly intact. Tetraparesis. Patient slowly moves upper extremities. Objective Labs 08/28/24 06:10 08/28/24 06:10 Labs: Laboratory Results - last 24 hr 08/28/24 06:10 WBC 15.4 H RBC 4.89 Hgb 13.1 L Hct 40.7 L MCV 83 MCH 26.8 MCHC 32.2 RDW Std Deviation 48.4 H Plt Count 297 D Neut % (Auto) 78 Lymph % (Auto) 13 Guthrie % (Auto) 7 Eos % (Auto) 2 Baso % (Auto) 0 Neut # (Auto) 12.0 H Lymph # (Auto) 2.0 Guthrie # (Auto) 1.0 H Eos # (Auto) 0.3 Baso # (Auto) 0.0 Immature Gran # (Auto) 0.07 H Absolute Nucleated RBC 0.00 Immature Gran % 1 H Nucleated RBC % 0 Sodium 142 Potassium 4.3 D Chloride 105 Carbon Dioxide 27.3 Anion Gap 10 BUN 12 Creatinine 0.4 L Estim Creat Clear Calc 183.6 eGFR > 60 BUN/Creatinine Ratio 30 H Glucose 119 H Calculated Osmolality 283 Calcium 8.7 Corrected Calcium 9.1 Total Bilirubin 0.4 AST 15 ALT 12 Alkaline Phosphatase 64 Total Protein 6.6 Albumin 3.5 Globulin 3.1 Albumin/Globulin Ratio 1.1 L ABG Interpretation ABG results: 08/21/24 08/21/24 08/22/24 06:20 11:50 11:19 ABG pH 7.38 7.40 ABG pCO2 54 H 53 H ABG pO2 55 L* 52 L* ABG HCO3 32 H 33 H ABG O2 Saturation 88 L 86 L ABG Base Excess 6 H 7 H VBG pH 7.39 VBG pCO2 52 VBG pO2 33 VBG Base Excess 5 H 08/24/24 15:36 ABG pH 7.50 H ABG pCO2 45 ABG pO2 65 L ABG HCO3 35 H ABG O2 Saturation 94 ABG Base Excess 11 H VBG pH VBG pCO2 VBG pO2 VBG Base Excess Quality Measures Quality Measures VTE prophylaxis Assessment & Plan Assessment Current Active Medications: Generic Name Dose Route Start Last Admin Trade Name Freq PRN Reason Stop Dose Admin Acetaminophen 650 mg 08/20/24 08:47 08/24/24 12:40 Acetaminophen 325 Mg Tablet PO 09/16/24 23:35 650 mg Q6H PRN Administration Fever >100.3 or pain 1-3 Protocol Albuterol/Ipratropium 3 ml 08/18/24 01:00 08/28/24 12:56 Albuterol/Ipratropium (Duoneb) Rt Clarissa 3 Ml Nebu INH 09/17/24 00:59 3 ml Q6HRRT ANGEL Administration Heparin Sodium (Porcine) 5,000 unit 08/17/24 23:45 08/28/24 13:34 Heparin Sod Inj 5000 Unit/Ml Vial SC 08/31/24 23:44 5,000 unit Q8HR ANGEL Administration Lansoprazole 30 mg 08/23/24 09:00 08/28/24 09:05 Lansoprazole 30 Mg Tab.Rap. GT 09/17/24 08:59 30 mg QDAY ANGEL Administration Levetiracetam 500 mg 08/18/24 09:30 08/28/24 09:05 Levetiracetam Liqd 500 Mg/5 Ml Udc GT 09/17/24 09:29 500 mg BID ANGEL Administration Methadone HCl 5 mg 08/26/24 22:00 08/28/24 13:32 Methadone Hcl 10 Mg Tablet GT 08/31/24 21:59 5 mg Q8HR ANGEL Administration Mineral Oil 30 ml 08/19/24 09:54 Mineral Oil 30 Ml Udc OK 09/16/24 23:44 BID PRN Constipation Ondansetron HCl 4 mg 08/17/24 23:36 Ondansetron Inj 2 Mg/Ml Inj 2 Ml IV 09/16/24 23:35 Q6H PRN NAUSEA OR VOMITING Protocol Polyethylene Glycol 17 gm 08/20/24 09:00 08/28/24 09:04 Polyethylene Glycol 17 Gm Packet PO 09/19/24 08:59 17 gm QDAY ANGEL Administration Sennosides 1 tab 08/22/24 09:00 08/24/24 09:49 Senna Tablet PO 09/21/24 08:59 1 tab QDAY ANGEL Administration Protocol Sodium Chloride 4 ml 08/28/24 13:00 Sodium Cl Rt Clarissa 3% 4 Ml Nebu (Non-Formulary) INH 09/27/24 12:59 Q6HRRT ANGEL Plan 44-year-old male with past medical history of quadriplegia, seizures, s/p PEG tube placement, suprapubic catheter, chronic decubitus ulcer who was brought to the ED from SNF due to altered mental status and fever for 2 days. Patient was subsequently admitted for treatment of sepsis secondary to UTI and pneumonia. #Acute hypoxic respiratory failure #Right lower lobe pneumonia, likely secondary to aspiration #Pseudomonas pheumonia #Right lung total atelectasis Patient initially came saturating well on room air, but slowly started to have increasing O2 requirements. COVID, flu, RSV were negative Cocci serology was negative MRSA screening negative Discontinued ceftriaxone and azithromycin for both pneumonia and UTI due to resistance of urine micro 08/20/24 08/21/24: Patient noted to start required Hi-Flow O2. X-ray showed worsening pneumonia. Due to acute encephalopathy, patient may have had an aspiration episode. 08/22/24: VBG showed pH 7.39, PCO2 52. Sputum culture grew Pseudomonas sensitive to Zosyn. Plan - Finished IV Zosyn 3.375 mg q8h for ESBL UTI 08/20/24-08/28/24 - Continue Hi-Flow NC, wean as tolerated - Sputum culture grew Pseudomonas sensitive to Zosyn - Aspiration precautions - Chest physiotherapy with vest and hypetonic saline inhalations #Acute metabolic encephalopathy, improving #Sepsis, secondary to UTI - resolved #Providencia stuartii and Klebsiella pneumoniae UTI Patient with chronic suprapubic catheter, presented with tachycardia and fevers at his nursing facility. Urinalysis showed dark orange, turbid sample, with positive ketones, proteins and blood, WBCs more than 1800, positive for bacteria and yeast. Chest x-ray showed early base pneumonia, Head CT was negative for any hemorrhage or mass effect, CT abdomen and pelvis showed bilateral calculi however there was no obstruction and no hydronephrosis, also showed cystitis. 08/17/2024 Urine culture grew Klebsiella pneumonia ESBL, Providencia stuartii both sensitive to Zosyn, ertapenem and imipenem. Plan - Finished Zosyn 3.375 every 8 hours 08/20/2024-08/28/24 - Finished doxycycline 100 mg GT BID 08/23/2024-08/28/24 as it is less nephrotoxic - Blood cultures negative 48 hours - Slowly titrate methadone due to concern of exacerbating the encephalopathy #Right-sided conjunctivitis, improving Patient has red discoloration on the right eye with purulent discharge, no itching Erythromycin ophthalmic ointment 4 times daily discontinued, received 7 days total. Plan ? Eye care daily #Severe constipation, improving #Proctitis CT abdomen and pelvis showed severe stool impaction, appears to be compressing the urinary bladder. Associated with proctitis. Patient is bedridden, noticed some of his meds could be narcotics which may lead to stool impaction. At this time the patient was mildly dehydrated we will hold on osmotic laxatives at this time decrease the risk of worsening his dehydration. 08/19/2024: Patient had a bowel movement after the miralax and the mineral oil enema. Will continue with Miralax daily for now. Plan ? Mineral oil enema twice daily PRN ? MiraLAX daily ? Senna 1 tab daily prn #History of seizure disorder Plan ? Continue home Keppra 500 twice daily #History of quadriplegia status post PEG tube Plan ? Dietitian consulted ? Continue home tube feeds, Glycerna 1.2 at goal rate 60 ml/hr with free water flushes #Chronic pain Previously held methadone, resuming it as he is more awake. Patient on hospice prior to hospitalization and uses liquid morphine via GT. Plan: - methadone dose decreased to 5 mg from 10 mg GT q8h due to AMS previously - Pain control as needed, may add morphine IV 2 mg in pushes if patient appears in pain Hospital Maintenance: FEN: Tube feeding, Glycerna 1.2 at goal rate 60 ml/hr with free water flushes DVT ppx: Heparin subcu GI ppx: Protonix IV lines: PIV Moyer: Suprapubic catheter Code status: Full code Dispo: Med/tele Plan of care discussed with attending Dr. Aleman, PGY-[address] Kenyon. Radha Oliveira MD, PGY 1. Attending Provider Attestation/Addendum I attest that I was physically present for the evaluation, physical examination, lab and imaging review of the patient with the residents. I discussed the case with the residents and agree with the findings and plans of care as documented above. At bedside this morning, patient appears comfortable and denies any complaints. Continues to be on high flow nasal cannula, 30 L, 70 FiO2. Chest x-ray was obtained, which showed right total lung atelectasis and concern for mucous plug. Discussed with pulmonology/manager of security, recommended chest physiotherapy with vest along with hypertonic normal saline nebulization followed by positional drainage, we will transfer to ICU for intubation followed by bronchoscopy if that fails. Lizandro Aleman MD
--- NOTE | 2024-08-28 16:50 | PD.RESEVENT ---
Documentation for date of: 08/28/24 Event Note Event Note: Rapid Response Room: 374 Time: 16:44 Reason for Call: Hypoxia, desaturation to 72% on Hi-Flow 30L, 70% FiO2 Patient presentation: Patient noted on monitor to have desaturated to the 70s, RN called RT who responded and FiO2 was increased to 100%, patient was still saturating in the 70s, therefore rapid response was called. Primary medicine team responded and found patient to be more lethargic from baseline, eyes were open but not making eye contact and he was no longer responding to any questions. Patient found to be diaphoretic, tachypneic. BG was 107, BP 100-110s/50-60s, temp normal. Prior to event, patient was laying in bed, no known triggers. Patient had right-sided bed wedges to prop him up and lean towards the left side as well as chest physiotherapy vest on. Patient last received breathing treatment at 1 pm. Events: Contacted ICU director intelligence analysis programs Dr. Song who was consulted earlier regarding the patient given CXR this morning showing total right lung atelectasis and pattern indicating likely mucous plugging. At that time hypertonic saline and vest physiotherapy were initiated. At this time recommended intubation. Will need bronchoscopy. Meanwhile patient was bagged while on Hi-Flow. ED physician intubated patient in room 374. Assessment: Likely respiratory distress and poor right lung ventilation secondary to worsening right sided mucus plugging. New orders: ICU upgrade Care was discussed with the attending, Dr. Aleman, and Team B residents Radha Oliveira, PGY-1 and Smith Mullins, PGY-1. Jess Kenyon, PGY-2
[2024-08-28] MEDS: ETOMIDATE INJ 2 MG/ML VIAL 10 ML 40 MG IVP (17:01)
[2024-08-28] MEDS: ROCURONIUM INJ 10 MG/ML VIAL 10 ML 50 MG IVP (17:02)
--- NOTE | 2024-08-28 17:15 | ESCONSULT_ITS ---
<Statement entered by Lois Song MD - 08/29/24 10:55> TOTAL CC TIME: 45 MIN I saw and evaluated the patient. I reviewed the resident?s note and agree with findings and plan as documented in the resident?s note. Upon my evaluation, this patient had a high probability of imminent or life- threatening deterioration due to acute hypoxic respiratory failure/pneumonia which required my direct attention, intervention, and personal management. This time is exclusive of time spent on procedures, which are documented separately if performed. Patient seen and examined while on [facility] floor initially. Admitted with progressive pneumonia and right sided mucous plugging. Initial recommendations were to avoid bronchoscopy given significant high risk for progressive respiratory failure due to the procedure. Patient is on 70% high flow nasal cannula and has profound weakness due to quadriplegia. Effects of sedation as well as the bronchoscopy procedure itself with substantially increase the patient's risk for further demise. Initial recommendations were to start hypertonic 4% saline nebulized twice daily and chest vest physiotherapy for 20 minutes 3 times daily as well as positional changes. The patient favors leaning on the right lateral position. Discussed with the medicine team to have the patient wedged so that he is leaning more to the left. Recommended intubation and bronchoscopy if the above measures fail. Later in the day a rapid response was called due to worsening hypoxia. He was subsequently intubated and brought to the ICU. Copious saline lavage and Mcintyre ETT suctioning resulted in some improvement of the right sided atelectasis. HPI Data of Consult Requesting Physician: Lizandro Aleman MD Admitting Provider: Shyam Urrutia MD Attending Provider: Lizandro Aleman MD Primary Care Provider: Jimmie Chavez MD Consult Narrative History of present illness: A 44-year-old male patient with past medical history of quadriplegia, seizures, status post PEG tube placement, suprapubic catheter, chronic decubitus ulcer was brought to the ED from SNF due to due to altered mental status and fever. Patient at baseline is verbal and oriented x 3 however at the facility he was noticed to have had 2 episodes of fever in in the past 2 days. He also noticed to be less talkative and not responsive to the nursing facility staff. They denied any skin rash vomiting, shortness of breath, or abdominal pain at that time. Most of the history was taken from the longterm facility staff, ED doctors, patient chart and documents due to patient mental status. 08/28/24: Patient in respiratory destress secondary to severe right sided mucus plugging. Hypoxic respiratory failure while on HFNC. Rapid response called around 16:30. Patient tachypneic in 30s, oxygen saturations in high 70s. Patient will require bronchoscopy with saline flushes to attempt to clear mucus plug. cc:: cc: Lizandro Aleman MD Review of Systems Review of Systems ROS Unobtainable: due to endotracheal tube Exam Vital Signs Temp Pulse Resp BP Pulse Ox O2 Del Method O2 Flow Rate 97.1 F 92 18 98/66 93 L High Flow Nasal Cannula 30 08/28/24 12:00 08/28/24 16:00 08/28/24 15:19 08/28/24 12:00 08/28/24 17:13 08/28/24 08:00 08/28/24 15:19 FiO2 70 08/28/24 15:19 Narrative Exam Gen: Chronically ill-appearing emaciated man. Appears weak. Intubated. HEENT: NCAT, PERRLA, EOMI, MMM, right-sided injected conjunctiva. CVS: Normal S1 and S2. Tachycardic. No M/R/G. Resp: Decreased breath sounds in right lung, coarse breath sounds in left. Abd: Noft, non-tender, non-distended. BS+ in all 4 quadrants. PEG tube in situ, site unremarkable. MSK: Chronically contracted in the upper and lower extremities. Neuro: CN II-XII grossly intact. Quadraplalegic. Patient slowly moves upper extremities Results Labs 08/28/24 06:10 08/28/24 06:10 Labs: Short CBC 08/28/24 Range/Units 06:10 WBC 15.4 H (3.8-10.6) Thou/mm3 Hgb 13.1 L (13.5-16.0) g/dL Hct 40.7 L (41.0-53.0) % Plt Count 297 D (140-440) Thou/mm3 BMP 08/28/24 06:10 Sodium 142 Potassium 4.3 D Chloride 105 Carbon Dioxide 27.3 BUN 12 Creatinine 0.4 L Glucose 119 H Calcium 8.7 Liver Function 08/28/24 Range/Units 06:10 Total Bilirubin 0.4 (0.3-1.2) mg/dL AST 15 (0-34) U/L ALT 12 (10-49) U/L Alkaline Phosphatase 64 (46-116) U/L Albumin 3.5 (3.5-5.0) gm/dL ABG Interpretation ABG results: 08/21/24 08/21/24 08/22/24 06:20 11:50 11:19 ABG pH 7.38 7.40 ABG pCO2 54 H 53 H ABG pO2 55 L* 52 L* ABG HCO3 32 H 33 H ABG O2 Saturation 88 L 86 L ABG Base Excess 6 H 7 H VBG pH 7.39 VBG pCO2 52 VBG pO2 33 VBG Base Excess 5 H 08/24/24 15:36 ABG pH 7.50 H ABG pCO2 45 ABG pO2 65 L ABG HCO3 35 H ABG O2 Saturation 94 ABG Base Excess 11 H VBG pH VBG pCO2 VBG pO2 VBG Base Excess Quality Measures Quality Measures VTE prophylaxis Medications Home Medications and Allergies Home Medications ?Medication ?Instructions ?Recorded ?Confirmed ?Type lorazepam 0.5 mg tablet 0.25 mg PO BID 08/15/2308/01 History sennosides 17.2 mg tablet 8.6 mg PO BID 08/15/2308/18 History ascorbic acid (vitamin C) 500 mg 500 mg PO DAILY 12/0208/18/24 History tablet baclofen 10 mg tablet 10 mg PO Q6HR 12/03/2308/18 History hydrocodone 10 mg-acetaminophen 1 tab PO [id number] PRN P ain (Scale 12/03/23 08/18/24 History 325 mg tablet Score 7-10) levetiracetam 500 mg/5 mL (5 mL) 500 mg PO BID 4 08/18/24 History oral solution multivitamin with minerals 1 tab PO QDAY 12/03/2308/01 History bisacodyl 10 mg rectal suppository 10 mg VA QDAY PRN C onstipation 02/06/24 08/18/24 History magnesium hydroxide 400 mg/5 mL 30 ml PO QDAY PRN Cons tipation 02/06/24 08/18/24 History oral suspension (Milk of Magnesia) sodium phosphates 19 gram-7 118 ml VA Q72H PRN Constip ation 02/06/24 08/18/24 History gram/118 mL enema (Fleet Enema) ibuprofen 400 mg tablet (IBU) 400 mg PO Q12H PRN pain 08/18/24 08/18/24 History methadone 10 mg tablet 20 mg PO Q8H 08/18/24 History morphine concentrate 100 mg/5 mL 20 mg PO Q4H PRN pain 08/18/24 08/18/24 History (20 mg/mL) oral solution omeprazole 20 mg capsule,delayed 20 mg PO QDAY 5 08/18/24 History release zinc 50 mg tablet 50 mg PO QDAY 08/18/2408/18 History Allergies Allergy/AdvReac Type Severity Reaction Status Date / Time No Known Allergies Allergy Verified 04/07/24 14:49 Visit Medications Acetaminophen (Acetaminophen 325 Mg Tablet) 650 mg PO Q6H PRN; Protocol PRN Reason: Fever >100.3 or pain 1-3 Stop: 09/16/24 23:35 Last Admin: 08/24/24 12:40 Dose: 650 mg Albuterol/Ipratropium (Albuterol/Ipratropium (Duoneb) Rt Clarissa 3 Ml Nebu) 3 ml INH Q6HRRT [facility] Stop: 09/17/24 00:59 Last Admin: 08/28/24 12:56 Dose: 3 ml Heparin Sodium (Porcine) (Heparin Sod Inj 5000 Unit/Ml Vial) 5,000 unit SC Q8HR [facility] Stop: 08/31/24 23:44 Last Admin: 08/28/24 13:34 Dose: 5,000 unit Lansoprazole (Lansoprazole 30 Mg Tab.Rap.Dr) 30 mg GT QDAY [facility] Stop: 09/17/24 08:59 Last Admin: 08/28/24 09:05 Dose: 30 mg Levetiracetam (Levetiracetam Liqd 500 Mg/5 Ml Udc) 500 mg GT BID [facility] Stop: 09/17/24 09:29 Last Admin: 08/28/24 09:05 Dose: 500 mg Methadone HCl (Methadone Hcl 10 Mg Tablet) 5 mg GT Q8HR [facility] Stop: 08/31/24 21:59 Last Admin: 08/28/24 13:32 Dose: 5 mg Mineral Oil (Mineral Oil 30 Ml Udc) 30 ml VA BID PRN PRN Reason: Constipation Stop: 09/16/24 23:44 Ondansetron HCl (Ondansetron Inj 2 Mg/Ml Inj 2 Ml) 4 mg IV Q6H PRN; Protocol PRN Reason: NAUSEA OR VOMITING Stop: 09/16/24 23:35 Polyethylene Glycol (Polyethylene Glycol 17 Gm Packet) 17 gm PO QDAY [facility] Stop: 09/19/24 08:59 Last Admin: 08/28/24 09:04 Dose: 17 gm Sennosides (Senna Tablet) 1 tab PO QDAY [facility]; Protocol Stop: 09/21/24 08:59 Last Admin: 08/24/24 09:49 Dose: 1 tab Sodium Chloride (Sodium Cl Rt Clarissa 3% 4 Ml Nebu (Non-Formulary)) 4 ml INH Q6HRRT [facility] Stop: 09/27/24 12:59 Discontinued Medications Acetaminophen (Acetaminophen Clarissa 325 Mg/10 Ml Udc) 650 mg GT X1 ONE Stop: 08/17/24 17:47 Last Admin: 08/17/24 18:29 Dose: 650 mg Acetaminophen (Acetaminophen 325 Mg Tablet) 650 mg PO Q6H PRN; Protocol PRN Reason: Fever >101.5 Stop: 09/16/24 23:35 Last Admin: 08/20/24 05:33 Dose: 650 mg Azithromycin (Azithromycin 250 Mg Tablet) 250 mg PO QDAY [facility] Stop: 08/25/24 08:59 Last Admin: 08/20/24 08:57 Dose: 250 mg Doxycycline Hyclate (Doxycycline 100 Mg Tablet) 100 mg GT BID [facility] Stop: 08/30/24 10:29 Last Admin: 08/28/24 09:05 Dose: 100 mg Erythromycin (Erythromycin Op Oint 0.5% 1 Gm Packet) 1 gm RIGHT EYE QID [facility] Stop: 09/16/24 23:44 Last Admin: 08/27/24 11:25 Dose: 1 gm Piperacillin Sod/Tazobactam (Sod 4.5 gm/ Sodium Chloride) 100 mls @ 200 mls/hr IV X1 ONE Stop: 08/17/24 19:11 Last Infusion: 08/17/24 20:30 Dose: Infused Doxycycline Hyclate 100 mg/ (Sodium Chloride) 100 mls @ 100 mls/hr IV X1 ONE Stop: 08/17/24 21:26 Last Infusion: 08/17/24 23:00 Dose: Infused Sodium Chloride (Ns) 1,000 mls @ 999 mls/hr IV .Q1H1M ONE Stop: 08/17/24 22:40 Last Infusion: 08/17/24 23:15 Dose: Infused Sodium Chloride (Ns) 1,000 mls @ 75 mls/hr IV .[id number] [facility] Stop: 09/16/24 23:44 Last Admin: 08/19/24 05:38 Dose: 75 mls/hr Ceftriaxone Sodium 1,000 mg/ (Sodium Chloride) 50 mls @ 100 mls/hr IV QDAY [facility] Stop: 08/26/24 08:59 Last Admin: 08/20/24 08:56 Dose: 100 mls/hr Ceftriaxone Sodium 1,000 mg/ (Sodium Chloride) 50 mls @ 100 mls/hr IV X1 ONE Stop: 08/18/24 01:44 Last Infusion: 08/18/24 02:30 Dose: Infused Piperacillin/Tazobactam/Dextrose (Zosyn) 3.375 gm in 50 mls @ 12.5 mls/hr IV Q8HR [facility] Stop: 08/27/24 13:59 Last Admin: 08/27/24 06:03 Dose: 12.5 mls/hr Magnesium Sulfate (Magnesium Sulfate Ivpb) 2 gm in 50 mls @ 25 mls/hr IV X1 ONE Stop: 08/21/24 07:51 Last Admin: 08/21/24 06:05 Dose: 25 mls/hr Vancomycin HCl/Dextrose (Vancomycin/D5w 1,250 Mg Ivpb) 250 mls @ 120 mls/hr IV X1 ONE Stop: 08/21/24 12:34 Last Admin: 08/21/24 11:45 Dose: 120 mls/hr Vancomycin/Sodium Chloride (Vancomycin/Ns 1 Gm Ivpb) 200 mls @ 120 mls/hr IV Q8HR [facility]; Protocol Stop: 08/28/24 21:59 Last Admin: 08/23/24 05:13 Dose: 120 mls/hr Naloxone HCl 2 mg/ Dextrose 500 mls @ 10 mls/hr IV .Q24H [facility] Stop: 09/23/24 14:14 Methadone HCl (Methadone Hcl 10 Mg Tablet) 20 mg PO Q8H [facility]; Protocol Stop: 08/23/24 09:44 Last Admin: 08/23/24 02:30 Dose: 20 mg Methadone HCl (Methadone Hcl 10 Mg Tablet) 20 mg PO Q8HR [facility] Stop: 08/28/24 21:59 Methadone HCl (Methadone Hcl 10 Mg Tablet) 20 mg GT Q8HR [facility] Stop: 08/28/24 21:59 Last Admin: 08/24/24 14:26 Dose: Not Given Methadone HCl (Methadone Hcl 10 Mg Tablet) 10 mg GT Q8HR [facility] Stop: 08/30/24 13:59 Last Admin: 08/26/24 13:46 Dose: Not Given Mineral Oil (Mineral Oil 30 Ml Udc) 30 ml VA BID [facility] Stop: 09/16/24 23:44 Last Admin: 08/18/24 22:56 Dose: 30 ml Morphine Sulfate (Morphine Sulf Inj 10 Mg/Ml Vial) 2 mg IVP X1 ONE Stop: 08/22/24 12:10 Last Admin: 08/22/24 14:27 Dose: 2 mg Morphine Sulfate (Morphine Sulf Inj 10 Mg/Ml Vial) 1 mg IVP X1 ONE Stop: 08/24/24 14:38 Last Admin: 08/24/24 14:50 Dose: 1 mg Naloxone HCl (Naloxone Inj 0.4 Mg/Ml Vial) 0.4 mg IVP X1 ONE Stop: 08/24/24 14:08 Last Admin: 08/24/24 14:10 Dose: 0.4 mg Pantoprazole Sodium (Pantoprazole Inj 40 Mg Vial) 40 mg IVP QDAY [facility] Stop: 09/17/24 08:59 Last Admin: 08/22/24 09:33 Dose: 40 mg Pharmacy Consult (Vancomycin Pharmacy To Dose 1 Each Each) 1 each IV QDAY PRN PRN Reason: CONSULT Stop: 09/20/24 10:14 Polyethylene Glycol (Polyethylene Glycol 17 Gm Packet) 17 gm PO X1 ONE Stop: 08/17/24 23:46 Last Admin: 08/18/24 04:45 Dose: 17 gm Sodium Chloride (Sodium Chloride Rt 10% 15 Ml Nebu) 5 ml INH X1 ONE Stop: 08/21/24 06:19 Last Admin: 08/21/24 13:42 Dose: Not Given Assessment & Plan Plan Plan 44-year-old male with past medical history of quadriplegia, seizures, s/p PEG tube placement, suprapubic catheter, chronic decubitus ulcer who was brought to the ED from SNF due to altered mental status and fever for 2 days. Patient was subsequently admitted for treatment of sepsis secondary to UTI and pneumonia. 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 Continue home Keppra 500 twice daily CVS - No acute issues Respiratory #Acute hypoxic respiratory failure, intubated and mechanically ventilated #Right lower lobe pneumonia #Pseudomonas pneumonia #Right lung total atelectasis #Mechanical ventilation #Severe mucus plug, right lung - Saline flush with aggressive suctioning - TV 350, RR 25 to avoid injury to the left lung - will adjust based on ABG results and hopefully some mucus clears with suctioning - Bronchoscopy tomorrow - See ID below for PNA plan Endo - No acute issues Renal #Providencia stuartii and Klebsiella pneumoniae UTI - see ID below GI #Severe constipation, improving #Proctitis CT abdomen and pelvis showed severe stool impaction, appears to be compressing the urinary bladder. Associated with proctitis. Patient is bedridden, noticed some of his meds could be narcotics which may lead to stool impaction. At this time the patient was mildly dehydrated we will hold on osmotic laxatives at this time decrease the risk of worsening his dehydration. 08/19/2024: Patient had a bowel movement after the miralax and the mineral oil enema. Will continue with Miralax daily for now. Plan ? Mineral oil enema twice daily PRN ? MiraLAX daily ? Senna 1 tab daily prn ID #[id number] - Providencia stuartii and Klebsiella pneumoniae #PNA - Pseudomonas Cocci serology was negative MRSA screening negative Discontinued ceftriaxone and azithromycin for both pneumonia and UTI due to resistance of urine micro 08/20/24 Sputum culture grew Pseudomonas sensitive to Zosyn. Plan - Continue IV Zosyn 3.375 mg q8h for ESBL UTI 08/20/24-08/28/24 - was stopped but we will continue for up to 14 days due to upgrade in level of care Hospital Maintenance: FEN: Hold TF for now DVT ppx: Heparin subcutaneous GI ppx: Lansoprazole IV lines: PIV Moyer: Suprapubic catheter Code status: Full code Dispo: ICU
--- NOTE | 2024-08-28 17:16 | XR_ITS ---
Examination: AP chest single view Technique AP portable supine chest single view Examination time: 2024 at 1735 hours Comparison August 28, 2024 0836 hours INDICATIONS: Hypoxic respiratory failure, prominent right lung atelectasis on chest film this morning FINDINGS: Total right lung atelectasis Endotracheal tube tip approximately 4.6 cm above Tran Orogastric tube in the stomach Old left-sided rib fractures IMPRESSION: Total right lung atelectasis remains, consider bronchoscopy follow-up
--- NOTE | 2024-08-28 17:20 | PC.NURSE ---
FRANCISCA Andrews updated to patient change of condition and transfer of care to ICU
[2024-08-28] MEDS: fentaNYL 2,500 MCG/250 ML BAG 2,500 MCG/250 ML BAG IV (17:35)
[2024-08-28] MEDS: PROPOFOL 1,000 MG IVPB 1,000 MG/100 ML VIAL 1.652 MG IV (17:36)
--- NOTE | 2024-08-28 17:41 | XR_ITS ---
Examination: AP chest single view TECHNIQUE: AP portable supine chest single view Examination time: August 28, 2024 1808 hours Comparison August 28, 2024 1735 hours INDICATIONS: Right lung atelectasis, hypoxic respiratory failure on chest imaging today FINDINGS: Total right lung atelectasis Endotracheal tube tip 5.4 cm above Tran Orogastric tube is in the stomach, the tip is below the level of the film Left lung clear Left-sided old rib fractures IMPRESSION: No change in total right lung atelectasis
[2024-08-28 18:58] LABS: Base Excess 11 (-3-3); HCO3 35 mEq/L (20-26); Inspired Oxygen, FIO2 21 %; O2 Saturation 100 % (91-98); PCO2 42 mmHg (32.0-48.0); PO2 110 mmHg (83-108); pH, Arterial 7.53 (7.35-7.45)
[2024-08-28 18:59] LABS: Puncture Site Left Radial
[2024-08-28 19:00] LABS: Allen Test Performed/OK
[2024-08-28] MEDS: SODIUM CL RT SOL 3% 4 ML NEBU (NON-FORMULARY) INH (19:40)
[2024-08-28] MEDS: PIPER/TAZO 3.375 GM PREMIX 3.375 GM/50 ML BAG IV (20:04)
[2024-08-29] VITALS (89 sets, daily range): BP systolic 76–109; BP diastolic 51–73; PULSE 74–108; RESP 0–38; TEMP 36.3–36.6; O2SAT 90–100
[2024-08-29] MEDS: SODIUM CL RT SOL 3% 4 ML NEBU (NON-FORMULARY) INH ×4 (02:30→18:15)
[2024-08-29] MEDS: ALBUTEROL/IPRATROPIUM (Duoneb) RT SOL 3 ML NEBU INH ×4 (02:30→18:17)
[2024-08-29] MEDS: PIPER/TAZO 3.375 GM PREMIX 3.375 GM/50 ML BAG IV ×5 (03:24→23:23)
--- NOTE | 2024-08-29 05:00 | XR_ITS ---
Examination: AP chest single view TECHNIQUE: AP portable supine chest single view Exam date time: August 29, 2024 at 0507 hours Comparison August 28, 2024 INDICATIONS: Hypoxic respiratory failure, severe right lung atelectasis on chest films this week FINDINGS: Partial reexpansion right lung Endotracheal tube tip 5.3 cm above Tran The orogastric tube is in the stomach, the tip is below the level of the film Mild vascular congestion. Normal heart size IMPRESSION: Improvement with partial reexpansion right lung
[2024-08-29] MEDS: PROPOFOL 1,000 MG IVPB 1,000 MG/100 ML VIAL 8.26 MG IV (05:17)
[2024-08-29 05:38] LABS: Base Excess 5 (-3-3); HCO3 30 mEq/L (20-26); Inspired Oxygen, FIO2 100 %; O2 Saturation 100 % (91-98); PCO2 45 mmHg (32.0-48.0); PO2 171 mmHg (83-108); pH, Arterial 7.43 (7.35-7.45)
[2024-08-29 05:41] LABS: Allen Test Performed/OK; Puncture Site Right Radial
[2024-08-29 06:03] LABS: Basophils # (Auto) 0.1 Thou/mm3 (0.0-0.2); Basophils % (Auto) 0 % (0-2.5); Eosinophils # (Auto) 0.4 Thou/mm3 (0.0-0.5); Eosinophils % (Auto) 2 % (0-10); Hematocrit 39.2 % (41.0-53.0); Hemoglobin 12.1 g/dL (13.5-16.0); Immature Granulocytes % (Auto) 1 % (0-0); Immature Granulocytes Auto 0.13 Thou/mm3 (0.00-0.00); Lymphocytes % (Auto) 10 % (10-50); Mean Corpuscular HGB Conc 30.9 g/dl (31.0-37.0); Mean Corpuscular Hemoglobin 26.8 pg (25.0-35.0); Mean Corpuscular Volume 87 fL (80-100); Monocytes # (Auto) 1.2 Thou/mm3 (0.0-0.8); Monocytes % (Auto) 6 % (0-12); Neutrophils # (Auto) 15.7 Thou/mm3 (1.8-7.7); Neutrophils % (Auto) 80 % (37-80); Nucleated Red Blood Cell % 0 /100 WBC (0); Platelet Count 356 Thou/mm3 (140-440); RDW Standard Deviation 49.2 fL (35.1-43.9); Red Blood Count 4.52 Miln/mm3 (4.50-5.90); White Blood Count 19.5 Thou/mm3 (3.8-10.6)
[2024-08-29 06:14] LABS: Alanine Aminotransferase 10 U/L (10-49); Albumin, Serum 3.3 gm/dL (3.5-5.0); Albumin/Globulin Ratio 1.1 (1.2-2.2); Alkaline Phosphatase 63 U/L (46-116); Anion Gap 7 (7-16); Aspartate Amino Transferase 13 U/L (0-34); BUN/Creatinine Ratio 30 Ratio (12-20); Bilirubin,Total 0.6 mg/dL (0.3-1.2); Blood Urea Nitrogen 12 mg/dL (9-23); Calcium 8.8 mg/dL (8.3-10.6); Calcium (Corrected) 9.4 mg/dL (8.5-10.1); Chloride 109 mMol/L (98-107); Creatinine (Component) 0.4 mg/dL (0.6-1.3); Estimated Creatinine Clearance 183.6 mL/min (>60); Globulin 2.9 gm/dL (2.3-3.5); Glucose 87 mg/dL (74-106); Osmolality,Calculated 285 (275-295); Potassium 4.2 mMol/L (3.4-5.1); Sodium 144 mMol/L (136-145); Total Protein 6.2 gm/dL (5.7-8.2); eGFR > 60 See Note
[2024-08-29] MEDS: RINGERS LACTATED 500 ML 500 ML 999 ML IV (06:14)
[2024-08-29] MEDS: HEPARIN SOD INJ 5000 UNIT/ML VIAL SC (06:35)
--- NOTE | 2024-08-29 07:00 | ESOP_ITS ---
<Statement entered by Madison Roach MD - 08/31/24 17:11> I, Madison Roach MD, evaluated the patient independently and agree with the plan of care documented. Patient intubated by me after intubation attempt by resident. Procedures Procedure Date / Time 08/28/24 1730 Intubation Indication(s): acute Resp Failure Informed consent obtained: implied and procedure done urgently Time out done, and the following verified: correct patient and procedure Sedative: etomidate Mg given: 40 Paralytic: rocuronium Mg given: 50 Laryngoscope: other (glidescope) ET tube size: 8 ET tube uncuffed: No Tube secured depth (cm): 22 Tube secured location: teeth Tube placement confirmation: visualized tube passing through cords, equal breath sounds bilaterally, no breath sounds over epigastrium and confirmation by capnometry Patient tolerated procedure: well EBL(ml): 0 Intubation complications: other (First attempt by resident unsuccessful. Patient subsequently intubated by Dr. Roach.) Additional comments: Dentition reassesed s/p intubation, unchanged from prior to intubation
[2024-08-29] MEDS: levETIRAcetam LIQD 500 MG/5 ML UDC GT ×2 (09:41→21:10)
[2024-08-29] MEDS: LANSOPRAZOLE 30 MG TAB.RAP.DR GT (09:41)
[2024-08-29] MEDS: BACLOFEN 10 MG TABLET PO ×3 (09:43→23:22)
--- NOTE | 2024-08-29 09:45 | ESPR_ITS ---
<Statement entered by Lois Song MD - 08/30/24 10:27> TOTAL CC TIME: 45 MIN I saw and evaluated the patient. I reviewed the resident?s note and agree with findings and plan as documented in the resident?s note. Upon my evaluation, this patient had a high probability of imminent or life- threatening deterioration due to acute hypoxic respiratory failure, which required my direct attention, intervention, and personal management. This time is exclusive of time spent on procedures, which are documented separately if performed. Status post bronchoscopy with complete right-sided collapse predominantly right middle and lower lobe but tenacious secretions were identified all the way up to the distal trachea. Adequate suctioning was completed and we were able to identify the remainder of the bronchopulmonary segments without evidence of mucosal lesions. Mucosa was friable. See procedure note Zosyn CHEY 64 which is suboptimal. Requested Avycaz or Zyprexa, pharmacy is working on it but may not be available until Saturday and infectious disease consultation will be required Keep intubated until mucous plugging is resolved and pneumonia has improved Documentation for date of: 08/29/24 Subjective Subjective Interval history: No acute events overnight, Patient received multiple saline flushes with suction with output of thick purulent mucus. Exam Vital Signs Temp Pulse Resp BP Pulse Ox O2 Del Method O2 Flow Rate 97.4 F 87 32 H 95/60 97 Mechanical Ventilation 30 08/29/24 04:00 08/29/24 08:00 08/28/24 19:40 08/29/24 07:00 08/29/24 07:00 08/29/24 04:00 08/28/24 15:19 FiO2 60 08/29/24 08:00 Narrative Exam Gen: Chronically ill-appearing emaciated man. A&Ox4. Appears weak. Intubated. HEENT: NCAT, PERRLA, EOMI, MMM, right-sided injected conjunctiva. CVS: Normal S1 and S2. Tachycardic. No M/R/G. Resp: Decreased breath sounds in right lung, coarse breath sounds in left. Abd: Noft, non-tender, non-distended. BS+ in all 4 quadrants. PEG tube in situ, site unremarkable. MSK: Chronically contracted in the upper and lower extremities. Neuro: CN II-XII grossly intact. Quadraplalegic. Patient slowly moves upper extremities Objective Labs 08/29/24 05:26 08/29/24 05:26 Labs: Laboratory Results - last 24 hr 08/28/24 08/29/24 08/29/24 18:50 05:10 05:26 WBC 19.5 H RBC 4.52 Hgb 12.1 L Hct 39.2 L MCV 87 MCH 26.8 MCHC 30.9 L RDW Std Deviation 49.2 H Plt Count 356 D Neut % (Auto) 80 Lymph % (Auto) 10 [place] % (Auto) 6 Eos % (Auto) 2 Baso % (Auto) 0 Neut # (Auto) 15.7 H Lymph # (Auto) 2.0 [place] # (Auto) 1.2 H Eos # (Auto) 0.4 Baso # (Auto) 0.1 Immature Gran # (Auto) 0.13 H Absolute Nucleated RBC 0.00 Immature Gran % 1 H Nucleated RBC % 0 Puncture Site Left Radial Right Radial ABG pH 7.53 H 7.43 D ABG pCO2 42 45 ABG pO2 110 H 171 H D ABG HCO3 35 H 30 H ABG O2 Saturation 100 H 100 H ABG Base Excess 11 H 5 H FiO2 21 100 Sodium 144 Potassium 4.2 Chloride 109 H Carbon Dioxide 28.0 Anion Gap 7 BUN 12 Creatinine 0.4 L Estim Creat Clear Calc 183.6 eGFR > 60 BUN/Creatinine Ratio 30 H Glucose 87 Calculated Osmolality 285 Calcium 8.8 Corrected Calcium 9.4 Total Bilirubin 0.6 AST 13 ALT 10 Alkaline Phosphatase 63 Total Protein 6.2 Albumin 3.3 L Globulin 2.9 Albumin/Globulin Ratio 1.1 L ABG Interpretation ABG results: 08/21/24 08/21/24 08/22/24 06:20 11:50 11:19 ABG pH 7.38 7.40 ABG pCO2 54 H 53 H ABG pO2 55 L* 52 L* ABG HCO3 32 H 33 H ABG O2 Saturation 88 L 86 L ABG Base Excess 6 H 7 H VBG pH 7.39 VBG pCO2 52 VBG pO2 33 VBG Base Excess 5 H 08/24/24 08/28/24 08/29/24 15:36 18:50 05:10 ABG pH 7.50 H 7.53 H 7.43 D ABG pCO2 45 42 45 ABG pO2 65 L 110 H 171 H D ABG HCO3 35 H 35 H 30 H ABG O2 Saturation 94 100 H 100 H ABG Base Excess 11 H 11 H 5 H VBG pH VBG pCO2 VBG pO2 VBG Base Excess Quality Measures Quality Measures VTE prophylaxis (not indicated) Assessment & Plan Assessment Current Active Medications: Generic Name Dose Route Start Last Admin Trade Name Freq PRN Reason Stop Dose Admin Acetaminophen 650 mg 08/20/24 08:47 08/24/24 12:40 Acetaminophen 325 Mg Tablet PO 09/16/24 23:35 650 mg Q6H PRN Administration Fever >100.3 or pain 1-3 Protocol Albuterol/Ipratropium 3 ml 08/18/24 01:00 08/29/24 07:27 Albuterol/Ipratropium (Duoneb) Rt Clarissa 3 Ml Nebu INH 09/17/24 00:59 3 ml Q6HRRT ANGEL Administration Baclofen 10 mg 08/29/24 09:00 08/29/24 09:43 Baclofen 10 Mg Tablet PO 09/28/24 08:59 10 mg Q6HR ANGEL Administration Propofol 1,000 mg in 100 mls @ 1.652 mls/hr 08/28/24 17:26 08/29/24 06:10 Diprivan Ivpb IV 09/27/24 17:25 10 mcg/kg/min .Q24H PRN 3.304 mls/hr PER PROTOCOL Titration Protocol 5 MCG/KG/MIN Fentanyl Citrate 2,500 mcg in 250 mls @ 2.5 mls/hr 08/28/24 17:26 08/29/24 06:36 Sublimaze Inj 2,500 Mcg/250 Ml Bag IV 09/02/24 17:25 75 mcg/hr .Q24H PRN 7.5 mls/hr PER PROTOCOL Titration Protocol 25 MCG/HR Piperacillin/Tazobactam/Dextrose 3.375 gm in 50 mls @ 100 mls/hr 08/28/24 17:41 08/29/24 06:36 Zosyn IV 09/04/24 17:40 100 mls/hr Q6HR ANGEL Administration Lansoprazole 30 mg 08/23/24 09:00 08/29/24 09:41 Lansoprazole 30 Mg Tab.Rap.Dr ANDRADE 09/17/24 08:59 30 mg QDAY ANGEL Administration Levetiracetam 500 mg 08/18/24 09:30 08/29/24 09:41 Levetiracetam Liqd 500 Mg/5 Ml Udc GT 09/17/24 09:29 500 mg BID ANGEL Administration Mineral Oil 30 ml 08/19/24 09:54 Mineral Oil 30 Ml Udc NV 09/16/24 23:44 BID PRN Constipation Ondansetron HCl 4 mg 08/17/24 23:36 Ondansetron Inj 2 Mg/Ml Inj 2 Ml IV 09/16/24 23:35 Q6H PRN NAUSEA OR VOMITING Protocol Polyethylene Glycol 17 gm 08/20/24 09:00 08/29/24 09:42 Polyethylene Glycol 17 Gm Packet PO 09/19/24 08:59 Not Given QDAY ANGEL Sennosides 1 tab 08/22/24 09:00 08/29/24 09:42 Senna Tablet PO 09/21/24 08:59 Not Given QDAY ANGEL Protocol Sodium Chloride 4 ml 08/28/24 13:00 08/29/24 07:27 Sodium Cl Rt Clarissa 3% 4 Ml Nebu (Non-Formulary) INH 09/27/24 12:59 4 ml Q6HRRT ANGEL Administration Plan Plan 44-year-old male with past medical history of quadriplegia, seizures, s/p PEG tube placement, suprapubic catheter, chronic decubitus ulcer who was brought to the ED from SNF due to altered mental status and fever for 2 days. Patient was subsequently admitted for treatment of sepsis secondary to UTI and pneumonia. - Patient alert and oriented x 4. Responds to questions appropriately indicating patient has capacity to consent for procedures (able to identify objects, mouth where he currently is and why he is here in the hospital). Consented him for bronchoscopy to assist clearing secretions. 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 Continue home Keppra 500 twice daily CVS - No acute issues Respiratory #Acute hypoxic respiratory failure, intubated and mechanically ventilated #Right lower lobe pneumonia #Pseudomonas pneumonia #Right lung total atelectasis #Mechanical ventilation #Severe mucus plug, right lung - Saline flush with aggressive suctioning opened RUL and RML, RLL remains plugged - TV 300, RR 25, FiO2 45% - Bronchoscopy today, patient able to provide consent. Purulent secretions and mucus plug found predominantly in RML and RLL, able to be thinned out with lavage. Patient tolerated well. - See ID below for PNA plan Endo - No acute issues Renal #Providencia stuartii and Klebsiella pneumoniae UTI - see ID below GI #Severe constipation, improving #Proctitis CT abdomen and pelvis showed severe stool impaction, appears to be compressing the urinary bladder. Associated with proctitis. Patient is bedridden, noticed some of his meds could be narcotics which may lead to stool impaction. At this time the patient was mildly dehydrated we will hold on osmotic laxatives at this time decrease the risk of worsening his dehydration. 08/19/2024: Patient had a bowel movement after the miralax and the mineral oil enema. Will continue with Miralax daily for now. Plan ? Mineral oil enema twice daily PRN ? MiraLAX daily ? Senna 1 tab daily prn ID #UTI - Providencia stuartii and Klebsiella pneumoniae #PNA - Pseudomonas Cocci serology was negative MRSA screening negative Discontinued ceftriaxone and azithromycin for both pneumonia and UTI due to resistance of urine micro 08/20/24 Sputum culture grew Pseudomonas sensitive to Zosyn, however CHEY indicated intermediate resistance to Zosyn (64) Plan - Continue IV Zosyn 3.375 mg q8h for ESBL UTI 08/20/24-09/03/24 - Spoke to pharmacy regarding escalation of antibiotics to Avycaz or Zerbaxa. Medication not available until 08/31 and requires ID consult for approval per pharamacy. We will continue Zosyn until this is available and cleared. - Due to persistent infections exhibiting multiantibiotic resistance that this patient has been susceptible to, in future admissions, aggressive antibiotics such as AVYCAZ or ZERBAXA should be approved for use early in his presentation. Hospital Maintenance: FEN: Hold TF for now DVT ppx: Not indicated GI ppx: Lansoprazole IV lines: PIV Moyer: Suprapubic catheter Code status: Full code Dispo: ICU
--- NOTE | 2024-08-29 10:28 | ESOP_ITS ---
<Statement entered by Lois Song MD - 08/30/24 10:27> I was present for the critical and pascual portions of the procedure and was immediately available to provide assistance. Significant friability, tenacious secretions Procedures Procedure Date / Time 08/29/24 1045 Procedural Time Out Time out performed: 1036 Bronchoscopy Bronscopy indication(s): removal of secretions Informed consent obtained from: patient Time out done and the following verified: correct patient, side and site, procedure and patient position Oxygen delivery: 100% FIO2 Vocal cords: symmetric equally mobile Trachea: proximal appears normal, mid appears normal and distal appears normal Tran: sharp in angle RUL & subsegmental branches: purulent secretions (mild in RUL, thinned out and able to be suctioned) RML & subsegmental branches: mucus plugging and purulent secretions (thinned out and able to be suctioned) RLL & subsegmental branches: mucus plugging and purulent secretions (thinned out and able to be suctioned) [place] & subsegmental branches: mucosa appears normal LLL & subsegmental branches: mucosa appears normal Bronchoalveolar lavage: BAL with ~80cc normal saline EBL: 0 Patient tolerated procedure: well Complications: No
--- NOTE | 2024-08-29 11:28 | XR_ITS ---
Examination: AP chest single view Technique one AP portable semiupright chest single view Exam date and time: August 29, 2024 1137 hrs. Comparison August 29, 2024 0507 hrs. Findings: Stable partial reexpansion right lung Atelectasis right lower lobe appears more prominent compared to the study of 5:04 AM this morning Orogastric tube is in the stomach Normal heart size Endotracheal tube tip 5.8 cm above dar Stable cardiac contour Impression: Atelectasis in the right lower lobe appears more prominent compared to the 5:04 AM chest film this morning
[2024-08-29] MEDS: TOBRAMYCIN/DEXAMETH OP OINT 3.5 GM TUBE RIGHT EYE ×3 (12:29→21:11)
[2024-08-29] MEDS: fentaNYL 2,500 MCG/250 ML BAG 2,500 MCG/250 ML BAG 17.5 MCG IV (14:22)
[2024-08-29] MEDS: PROPOFOL 1,000 MG IVPB 1,000 MG/100 ML VIAL 9.912 MG IV (18:00)
[2024-08-30] VITALS (112 sets, daily range): BP systolic 72–103; BP diastolic 51–70; PULSE 69–96; RESP 14–40; TEMP 36.9–37.2; O2SAT 92–100
[2024-08-30] MEDS: ALBUTEROL/IPRATROPIUM (Duoneb) RT SOL 3 ML NEBU INH ×4 (00:11→18:04)
[2024-08-30] MEDS: fentaNYL 2,500 MCG/250 ML BAG 2,500 MCG/250 ML BAG 17.5 MCG IV ×2 (04:41→19:30)
[2024-08-30 04:59] LABS: Base Excess 4 (-3-3); HCO3 30 mEq/L (20-26); Inspired Oxygen, FIO2 30 %; O2 Saturation 87 % (91-98); PCO2 49 mmHg (32.0-48.0); pH, Arterial 7.39 (7.35-7.45)
--- NOTE | 2024-08-30 05:00 | XR_ITS ---
Examination: AP chest single view TECHNIQUE: AP portable supine chest single view Exam date 9:[id number] 0455 hours Comparison August 29, 2024 INDICATIONS: Hypoxic respiratory failure, right lung atelectasis on chest imaging this week FINDINGS: Dense pneumonia and atelectasis right base and right middle lobe with shift of heart, mediastinum and trachea to the right Prominent vascular congestion Diffuse opacity in the right lung consistent with pneumonia The orogastric tube is in the stomach, the tip in satisfactory position Right staghorn calculi. Gastrostomy tube Endotracheal tube tip 6.4 cm above Tran IMPRESSION: Dense pneumonia and atelectasis right base and right middle lobe remain
[2024-08-30 05:01] LABS: Allen Test Performed/OK; PO2 54 mmHg (83-108); Puncture Site Right Radial
[2024-08-30] MEDS: PIPER/TAZO 3.375 GM PREMIX 3.375 GM/50 ML BAG IV ×3 (05:49→17:06)
[2024-08-30] MEDS: TOBRAMYCIN/DEXAMETH OP OINT 3.5 GM TUBE RIGHT EYE ×4 (05:49→21:14)
[2024-08-30] MEDS: BACLOFEN 10 MG TABLET PO ×3 (05:49→17:07)
[2024-08-30 05:58] LABS: Basophils % (Auto) 0 % (0-2.5); Eosinophils # (Auto) 0.3 Thou/mm3 (0.0-0.5); Eosinophils % (Auto) 3 % (0-10); Hematocrit 35.7 % (41.0-53.0); Hemoglobin 11.1 g/dL (13.5-16.0); Immature Granulocytes % (Auto) 1 % (0-0); Immature Granulocytes Auto 0.06 Thou/mm3 (0.00-0.00); Lymphocytes # (Auto) 1.5 Thou/mm3 (1.0-4.8); Lymphocytes % (Auto) 12 % (10-50); Mean Corpuscular HGB Conc 31.1 g/dl (31.0-37.0); Mean Corpuscular Hemoglobin 26.4 pg (25.0-35.0); Mean Corpuscular Volume 85 fL (80-100); Monocytes # (Auto) 0.9 Thou/mm3 (0.0-0.8); Monocytes % (Auto) 7 % (0-12); Neutrophils # (Auto) 9.5 Thou/mm3 (1.8-7.7); Neutrophils % (Auto) 77 % (37-80); Nucleated Red Blood Cell % 0 /100 WBC (0); Platelet Count 308 Thou/mm3 (140-440); RDW Standard Deviation 48.6 fL (35.1-43.9); White Blood Count 12.3 Thou/mm3 (3.8-10.6)
[2024-08-30 06:38] LABS: Alanine Aminotransferase < 7 U/L (10-49); Albumin, Serum 3.3 gm/dL (3.5-5.0); Albumin/Globulin Ratio 1.1 (1.2-2.2); Alkaline Phosphatase 67 U/L (46-116); Anion Gap 11 (7-16); Aspartate Amino Transferase 10 U/L (0-34); BUN/Creatinine Ratio 33 Ratio (12-20); Bilirubin,Total 0.5 mg/dL (0.3-1.2); Blood Urea Nitrogen 13 mg/dL (9-23); Calcium 8.7 mg/dL (8.3-10.6); Calcium (Corrected) 9.3 mg/dL (8.5-10.1); Carbon Dioxide 26.7 mMol/L (20.0-31.0); Chloride 108 mMol/L (98-107); Creatinine (Component) 0.4 mg/dL (0.6-1.3); Estimated Creatinine Clearance 181.7 mL/min (>60); Glucose 76 mg/dL (74-106); Osmolality,Calculated 289 (275-295); Sodium 146 mMol/L (136-145); Total Protein 6.3 gm/dL (5.7-8.2); eGFR > 60 See Note
[2024-08-30] MEDS: PROPOFOL 1,000 MG IVPB 1,000 MG/100 ML VIAL 6.608 MG IV (07:19)
[2024-08-30] MEDS: SODIUM CL RT SOL 3% 4 ML NEBU (NON-FORMULARY) INH ×3 (07:54→18:04)
[2024-08-30] MEDS: SENNA TABLET 1 TAB PO (08:43)
[2024-08-30] MEDS: LANSOPRAZOLE 30 MG TAB.RAP.DR GT (08:43)
[2024-08-30] MEDS: POLYETHYLENE GLYCOL 17 GM PACKET PO (08:43)
[2024-08-30] MEDS: levETIRAcetam LIQD 500 MG/5 ML UDC GT ×2 (08:43→21:14)
--- NOTE | 2024-08-30 09:20 | ESPR_ITS ---
<Statement entered by Lois Song MD - 08/30/24 12:01> TOTAL CC TIME: 45 MIN TOTAL TIME: 45MINUTES ON DIRECT MEDICAL CARE, MANAGEMENT - COORDINATION AND COUNSELING > 50% OF TOTAL TIME I saw and evaluated the patient. I reviewed the resident?s note and agree with findings and plan as documented in the resident?s note. Upon my evaluation, this patient had a high probability of imminent or life- threatening deterioration due to hypoxic respiratory failure acute which required my direct attention, intervention, and personal management. This time is exclusive of time spent on procedures, which are documented separately if performed. Persistent thick purulent secretions causing full right middle and lower lobe collapse. Reinflated post bronchoscopy with clearance of copious mucous plugs. Suspect this area will develop atelectasis again until pneumonia is more fully treated Pending acquisition of either Zyprexa or Avycaz for multidrug-resistant Pseudomonas Documentation for date of: 08/30/24 Subjective Subjective Interval history: A 44-year-old male patient with past medical history of quadriplegia, seizures, status post PEG tube placement, suprapubic catheter, chronic decubitus ulcer was brought to the ED from SNF due to due to altered mental status and fever. Patient at baseline is verbal and oriented x 3 however at the facility he was noticed to have had 2 episodes of fever in in the past 2 days. He also noticed to be less talkative and not responsive to the nursing facility staff. They denied any skin rash vomiting, shortness of breath, or abdominal pain at that time. Most of the history was taken from the nursing home facility staff, ED doctors, patient chart and documents due to patient mental status. Patient initially was admitted to floors due to acute hypoxic respiratory failure secondary to pneumonia. However during hospital stay patient condition worsened, patient developed acute respiratory distress in the setting of total right lung collapse secondary due to mucous plugging. Patient was upgraded to ICU for serial bronchoscopy. 08/28/24: Patient in respiratory destress secondary to severe right sided mucus plugging. Hypoxic respiratory failure while on HFNC. Rapid response called around 16:30. Patient tachypneic in 30s, oxygen saturations in high 70s. Patient will require bronchoscopy with saline flushes to attempt to clear mucus plug. 08/29/24:No acute events overnight, Patient received multiple saline flushes with suction with output of thick purulent mucus. 08/30/24: Seen and examined at bedside. No acute overnight events. Patient is on sedation with RASS of -2 . Plan for today to do another bronchoscopy today. Labs revealed mild hyponatremia, most likely secondary due to poor intake. Patient was n.p.o., we will restart tube feeding, along with some free water flushes. Patient is having a little urine output, again most likely due to poor oral intake. Will continue close monitor urine output. Patient is responding well to antibiotics, no overnight fever. WBC down trended from 19-12.3. Exam Vital Signs Temp Pulse Resp BP Pulse Ox O2 Del Method O2 Flow Rate 98.9 F 89 30 H 84/55 L 96 Mechanical Ventilation 30 08/30/24 08:00 08/30/24 08:08/30/24 07:56 08/30/24 08:25 08/30/24 08:25 08/30/24 08:00 08/29/24 14:52 FiO2 45 08/30/24 08:00 Narrative Exam Gen: Chronically ill-appearing emaciated man.. Appears weak. Intubated. HEENT: NCAT, PERRLA, EOMI, MMM, right-sided injected conjunctiva. CVS: Normal S1 and S2. Tachycardic. No M/R/G. Resp: Decreased breath sounds in right lung, coarse breath sounds in left. Abd: Noft, non-tender, non-distended. BS+ in all 4 quadrants. PEG tube in situ, site unremarkable. MSK: Chronically contracted in the upper and lower extremities. Neuro: CN II-XII grossly intact. Quadraplalegic. Patient slowly moves upper extremities Objective Labs 08/30/24 04:32 08/30/24 04:32 Labs: Laboratory Results - last 24 hr 08/30/24 08/30/24 04:32 04:50 WBC 12.3 H D RBC 4.20 L Hgb 11.1 L Hct 35.7 L MCV 85 MCH 26.4 MCHC 31.1 RDW Std Deviation 48.6 H Plt Count 308 D Neut % (Auto) 77 Lymph % (Auto) 12 [place] % (Auto) 7 Eos % (Auto) 3 Baso % (Auto) 0 Neut # (Auto) 9.5 H Lymph # (Auto) 1.5 [place] # (Auto) 0.9 H Eos # (Auto) 0.3 Baso # (Auto) 0.0 Immature Gran # (Auto) 0.06 H Absolute Nucleated RBC 0.00 Immature Gran % 1 H Nucleated RBC % 0 Puncture Site Right Radial ABG pH 7.39 ABG pCO2 49 H ABG pO2 54 L* D ABG HCO3 30 H ABG O2 Saturation 87 L ABG Base Excess 4 H FiO2 30 Sodium 146 H Potassium 4.0 Chloride 108 H Carbon Dioxide 26.7 Anion Gap 11 BUN 13 Creatinine 0.4 L Estim Creat Clear Calc 181.7 eGFR > 60 BUN/Creatinine Ratio 33 H Glucose 76 Calculated Osmolality 289 Calcium 8.7 Corrected Calcium 9.3 Total Bilirubin 0.5 AST 10 ALT < 7 L Alkaline Phosphatase 67 Total Protein 6.3 Albumin 3.3 L Globulin 3.0 Albumin/Globulin Ratio 1.1 L ABG Interpretation ABG results: 08/21/24 08/21/24 08/22/24 06:20 11:50 11:19 ABG pH 7.38 7.40 ABG pCO2 54 H 53 H ABG pO2 55 L* 52 L* ABG HCO3 32 H 33 H ABG O2 Saturation 88 L 86 L ABG Base Excess 6 H 7 H VBG pH 7.39 VBG pCO2 52 VBG pO2 33 VBG Base Excess 5 H 08/24/24 08/28/24 08/29/24 15:36 18:50 05:10 ABG pH 7.50 H 7.53 H 7.43 D ABG pCO2 45 42 45 ABG pO2 65 L 110 H 171 H D ABG HCO3 35 H 35 H 30 H ABG O2 Saturation 94 100 H 100 H ABG Base Excess 11 H 11 H 5 H VBG pH VBG pCO2 VBG pO2 VBG Base Excess 08/30/24 04:50 ABG pH 7.39 ABG pCO2 49 H ABG pO2 54 L* D ABG HCO3 30 H ABG O2 Saturation 87 L ABG Base Excess 4 H VBG pH VBG pCO2 VBG pO2 VBG Base Excess Quality Measures Quality Measures VTE prophylaxis (not indicated) Assessment & Plan Assessment Current Active Medications: Generic Name Dose Route Start Last Admin Trade Name Freq PRN Reason Stop Dose Admin Acetaminophen 650 mg 08/20/24 08:47 08/24/24 12:40 Acetaminophen 325 Mg Tablet PO 09/16/24 23:35 650 mg Q6H PRN Administration Fever >100.3 or pain 1-3 Protocol Albuterol/Ipratropium 3 ml 08/18/24 01:00 08/30/24 07:54 Albuterol/Ipratropium (Duoneb) Rt Clarissa 3 Ml Nebu INH 09/17/24 00:59 3 ml Q6HRRT ANGEL Administration Baclofen 10 mg 08/29/24 09:00 08/30/24 05:49 Baclofen 10 Mg Tablet PO 09/28/24 08:59 10 mg Q6HR ANGEL Administration Propofol 1,000 mg in 100 mls @ 1.652 mls/hr 08/28/24 17:26 08/30/24 08:16 Diprivan Ivpb IV 09/27/24 17:25 15 mcg/kg/min .Q24H PRN 4.956 mls/hr PER PROTOCOL Titration Protocol 5 MCG/KG/MIN Fentanyl Citrate 2,500 mcg in 250 mls @ 2.5 mls/hr 08/28/24 17:26 08/30/24 08:32 Sublimaze Inj 2,500 Mcg/250 Ml Bag IV 09/02/24 17:25 175 mcg/hr .Q24H PRN 17.5 mls/hr PER PROTOCOL Titration Protocol 25 MCG/HR Piperacillin/Tazobactam/Dextrose 3.375 gm in 50 mls @ 100 mls/hr 08/28/24 17:41 08/30/24 05:49 Zosyn IV 09/04/24 17:40 100 mls/hr Q6HR ANGEL Administration Lansoprazole 30 mg 08/23/24 09:00 08/30/24 08:43 Lansoprazole 30 Mg Tab.Rap. GT 09/17/24 08:59 30 mg QDAY ANGEL Administration Levetiracetam 500 mg 08/18/24 09:30 08/30/24 08:43 Levetiracetam Liqd 500 Mg/5 Ml Udc GT 09/17/24 09:29 500 mg BID ANGEL Administration Mineral Oil 30 ml 08/19/24 09:54 Mineral Oil 30 Ml Udc [place] 09/16/24 23:44 BID PRN Constipation Ondansetron HCl 4 mg 08/17/24 23:36 Ondansetron Inj 2 Mg/Ml Inj 2 Ml IV 09/16/24 23:35 Q6H PRN NAUSEA OR VOMITING Protocol Polyethylene Glycol 17 gm 08/20/24 09:00 08/30/24 08:43 Polyethylene Glycol 17 Gm Packet PO 09/19/24 08:59 17 gm QDAY ANGEL Administration Sennosides 1 tab 08/22/24 09:00 08/30/24 08:43 Senna Tablet PO 09/21/24 08:59 1 tab QDAY ANGEL Administration Protocol Sodium Chloride 4 ml 08/28/24 13:00 08/30/24 07:54 Sodium Cl Rt [place] 3% 4 Ml Nebu (Non-Formulary) INH 09/27/24 12:59 4 ml Q6HRRT ANGEL Administration Tobramycin/Dexamethasone 0 gm 08/29/24 12:00 08/30/24 05:49 Tobramycin/Dexameth Op Oint 3.5 Gm Tube RIGHT EYE 09/05/24 11:59 3.5 gm QID ANGEL Administration Plan 44-year-old male with past medical history of quadriplegia, seizures, s/p PEG tube placement, suprapubic catheter, chronic decubitus ulcer who was brought to the ED from SNF due to altered mental status and fever for 2 days. Patient was subsequently admitted for treatment of sepsis secondary to UTI and pneumonia. - Patient alert and oriented x 4. Responds to questions appropriately indicating patient has capacity to consent for procedures (able to identify objects, mouth where he currently is and why he is here in the hospital). Consented him for bronchoscopy to assist clearing secretions. 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 Continue home Keppra 500 twice daily CVS - No acute issues Respiratory #Acute hypoxic respiratory failure, intubated and mechanically ventilated #Right lower lobe pneumonia #Pseudomonas pneumonia #Right lung total atelectasis #Mechanical ventilation #Severe mucus plug, right lung - Serial bronchoscopy with saline flushes and aggressive suctioning was done yesterday and today, Purulent secretions and mucus plug found predominantly in RML and RLL, able to be thinned out with lavage. Patient tolerated well.Open right upper, right middle and right lower lobes. Mucosa appears erythematous and friable - TV 300, RR 25, FiO2 45% -Continue Zosyn, patient appears to be responding well, no overnight fever, WBC downtrending Endo - No acute issues Renal #Providencia stuartii and Klebsiella pneumoniae UTI -Continue Zosyn GI #Severe constipation, improving #Proctitis CT abdomen and pelvis showed severe stool impaction, appears to be compressing the urinary bladder. Associated with proctitis. Patient is bedridden, noticed some of his meds could be narcotics which may lead to stool impaction. At this time the patient was mildly dehydrated we will hold on osmotic laxatives at this time decrease the risk of worsening his dehydration. 08/19/2024: Patient had a bowel movement after the miralax and the mineral oil enema. Will continue with Miralax daily for now. Plan ?Bowel regimen placed ID #UTI - Providencia stuartii and Klebsiella pneumoniae #PNA - Pseudomonas Cocci serology was negative MRSA screening negative Discontinued ceftriaxone and azithromycin for both pneumonia and UTI due to resistance of urine micro 08/20/24 Sputum culture grew Pseudomonas sensitive to Zosyn, however CHEY indicated intermediate resistance to Zosyn (64), patient appears to be responding to Zosyn, WBC is downtrending, patient is afebrile Plan - Continue IV Zosyn 3.375 mg q8h for ESBL UTI 08/20/24 - pharmacy was notified regarding escalation of antibiotics to Avycaz or Zerbaxa. Medication not available until 08/31 and requires ID consult for approval per pharamacy. We will continue Zosyn until this is available and cleared. - Due to persistent infections exhibiting multiantibiotic resistance that this patient has been susceptible to, in future admissions, aggressive antibiotics such as AVYCAZ or ZERBAXA should be approved for use early in his presentation. -,Avycaz was ordered, however will be available on Saturday. #Hyponatremia most likely secondary due to poor oral intake -Started free water flushes 25 cc/h -Patient was given 500 cc free water bolus [ -Restart tube feeding -Monitor electrolytes Hospital Maintenance: FEN: DVT ppx: Not indicated GI ppx: Lansoprazole IV lines: PIV Moyer: Suprapubic catheter Code status: Full code Dispo: ICU Patient care was discussed with attending physician Dr. Nohemi Mg MD PGY-2
--- NOTE | 2024-08-30 10:50 | ESOP_ITS ---
<Statement entered by Lois Song MD - 08/30/24 11:59> I was present for the critical and pascual portions of the procedure and was immediately available to provide assistance. Procedures Procedure Date / Time 08/30/24 1050 Bronchoscopy Bronscopy indication(s): removal of secretions Informed consent obtained from: patient Time out done and the following verified: correct patient, side and site, procedure, patient position and implants and/or equipment Oxygen delivery: 100% FIO2 Vocal cords: symmetric equally mobile Trachea: proximal appears normal, mid appears normal and distal appears normal Tran: sharp in angle RUL & subsegmental branches: purulent secretions (Saline lavage , able to be suctioned, significantly less than was yesterday) RML & subsegmental branches: mucus plugging (lavage and suctioned, less than was yesterday) and purulent secretions RLL & subsegmental branches: mucus plugging and purulent secretions (thined out and suctioned, mucosa appears erythematous and frail ) [place] & subsegmental branches: mucosa appears normal LLL & subsegmental branches: mucosa appears normal Bronchoalveolar lavage: ~60 normal lavege EBL: 0 Patient tolerated procedure: well Complications: No Procedure comment: Indication: Serial bronchoscopy for airway cleaning and evaluation, consent for serial bronchoscopy was obtained yesterday. Patient was AOx4. Type: Flexible bronchoscopy Sedation: Fentanyl and propofol Technique: A flexible bronchoscope was inserted through the endotracheal tube into the trachea and bronchi for examination. Findings: Trachea: Proximal trachea appears normal, and the tran is sharp in angle. Right Upper Lung: Purulent secretion noted, significantly less than the previous day. Lavaged and suctioned. Right Middle and Lower Lung: Similar procedure performed with bronchoalveolar lavage using ~60 cc of normal saline. Mucosa: The mucosa in the lungs appeared very frail and erythematous. Procedure was done under direct supervision of Dr.Malli Evelin Mg PGY-2
--- NOTE | 2024-08-30 10:53 | XR_ITS ---
Examination: AP chest single view Technique an AP portable sitting chest single view Exam date time: August 30, 2024 at 1111 hours Comparison August 30, 2024 0455 hours INDICATIONS: Postbronchoscopy today, atelectasis right lower lobe on earlier chest imaging this morning FINDINGS: Extensive atelectasis right lower lobe right middle lobe Normal heart size Tracheal tube tip 7.3 cm above Tran Mild diffuse opacity in both lungs Orogastric tube side hole on this study is near the GE junction IMPRESSION: Extensive atelectasis/pneumonia right lower lobe right middle lobe again noted Advance the orogastric tube 5 cm
--- NOTE | 2024-08-30 15:08 | PC.RT ---
moved ETT in to 25cm per dr. Song verbal order
[2024-08-31] VITALS (66 sets, daily range): BP systolic 77–110; BP diastolic 49–70; PULSE 69–94; RESP 7–34; TEMP 36.2–36.9; O2SAT 93–100; BMI 29.0; BMI 17.2
[2024-08-31] MEDS: SODIUM CL RT SOL 3% 4 ML NEBU (NON-FORMULARY) INH ×4 (00:07→18:02)
[2024-08-31] MEDS: ALBUTEROL/IPRATROPIUM (Duoneb) RT SOL 3 ML NEBU INH ×4 (00:07→18:02)
[2024-08-31] MEDS: PIPER/TAZO 3.375 GM PREMIX 3.375 GM/50 ML BAG IV ×2 (00:24→05:49)
[2024-08-31] MEDS: BACLOFEN 10 MG TABLET PO ×4 (00:25→16:59)
[2024-08-31] MEDS: PROPOFOL 1,000 MG IVPB 1,000 MG/100 ML VIAL 4.956 MG IV (01:08)
--- NOTE | 2024-08-31 05:00 | XR_ITS ---
Examination: AP chest single view Technique one AP portable semiupright chest single view Exam date and time: August 31, 2024 0518 hours Comparison August 30, 2024 INDICATIONS: Hypoxic respiratory failure postintubation this week, history of atelectasis right lung FINDINGS: Significant pneumonia/atelectasis right lower lobe right middle lobe again noted Endotracheal tube tip 5.2 cm above Tran. Orogastric tube in the stomach Gastrostomy tube noted overlying the stomach Prominent vascular congestion. Moderate right pleural fluid IMPRESSION: Significant pneumonia or atelectasis right lower lobe right middle lobe again noted. Endotracheal tube tip 5.2 cm above Tran Prominent vascular congestion
[2024-08-31] MEDS: TOBRAMYCIN/DEXAMETH OP OINT 3.5 GM TUBE RIGHT EYE ×4 (05:55→20:34)
[2024-08-31 06:11] LABS: Phosphorous 2.6 mg/dL (2.4-5.1)
[2024-08-31 07:10] LABS: Basophils % (Auto) 1 % (0-2.5); Eosinophils # (Auto) 0.3 Thou/mm3 (0.0-0.5); Eosinophils % (Auto) 4 % (0-10); Hematocrit 38.2 % (41.0-53.0); Hemoglobin 11.4 g/dL (13.5-16.0); Immature Granulocytes % (Auto) 1 % (0-0); Immature Granulocytes Auto 0.06 Thou/mm3 (0.00-0.00); Lymphocytes # (Auto) 1.6 Thou/mm3 (1.0-4.8); Lymphocytes % (Auto) 18 % (10-50); Mean Corpuscular HGB Conc 29.8 g/dl (31.0-37.0); Mean Corpuscular Hemoglobin 26.7 pg (25.0-35.0); Mean Corpuscular Volume 90 fL (80-100); Monocytes % (Auto) 11 % (0-12); Neutrophils # (Auto) 5.6 Thou/mm3 (1.8-7.7); Neutrophils % (Auto) 66 % (37-80); Nucleated Red Blood Cell % 0 /100 WBC (0); Platelet Count 282 Thou/mm3 (140-440); RDW Standard Deviation 50.6 fL (35.1-43.9); Red Blood Count 4.27 Miln/mm3 (4.50-5.90); White Blood Count 8.5 Thou/mm3 (3.8-10.6)
[2024-08-31 07:30] LABS: Alanine Aminotransferase 14 U/L (10-49); Albumin, Serum 3.4 gm/dL (3.5-5.0); Albumin/Globulin Ratio 1.1 (1.2-2.2); Alkaline Phosphatase 106 U/L (46-116); Anion Gap 9 (7-16); Aspartate Amino Transferase 18 U/L (0-34); BUN/Creatinine Ratio 57 Ratio (12-20); Bilirubin,Total 0.5 mg/dL (0.3-1.2); Blood Urea Nitrogen 17 mg/dL (9-23); Calcium 9.3 mg/dL (8.3-10.6); Calcium (Corrected) 9.8 mg/dL (8.5-10.1); Carbon Dioxide 28.6 mMol/L (20.0-31.0); Chloride 103 mMol/L (98-107); Creatinine (Component) 0.3 mg/dL (0.6-1.3); Estimated Creatinine Clearance 212.2 mL/min (>60); Globulin 3.2 gm/dL (2.3-3.5); Glucose 90 mg/dL (74-106); Osmolality,Calculated 282 (275-295); Potassium 3.9 mMol/L (3.4-5.1); Sodium 141 mMol/L (136-145); Total Protein 6.6 gm/dL (5.7-8.2); eGFR > 60 See Note
[2024-08-31] MEDS: levETIRAcetam LIQD 500 MG/5 ML UDC GT ×2 (08:22→20:34)
[2024-08-31] MEDS: LANSOPRAZOLE 30 MG TAB.RAP.DR GT (08:22)
--- NOTE | 2024-08-31 09:30 | ESPR_ITS ---
<Statement entered by Lois Song MD - 09/01/24 14:53> TOTAL TIME: 45MINUTES ON DIRECT MEDICAL CARE, MANAGEMENT - COORDINATION AND COUNSELING > 50% OF TOTAL TIME I saw and evaluated the patient. I reviewed the resident?s note and agree with findings and plan as documented in the resident?s note. Improving - tolerated low PSV - wean sedation further -anticipate he will be able to be extubated tomorrow. ID consult appreciated - keeping zosyn on board was recommended clinically -the secretions are improving and mucosa appears to be healing (on bronch) Documentation for date of: 08/31/24 Subjective Subjective Interval history: A 44-year-old male patient with past medical history of quadriplegia, seizures, status post PEG tube placement, suprapubic catheter, chronic decubitus ulcer was brought to the ED from SNF due to due to altered mental status and fever. Patient at baseline is verbal and oriented x 3 however at the facility he was noticed to have had 2 episodes of fever in in the past 2 days. He also noticed to be less talkative and not responsive to the nursing facility staff. They denied any skin rash vomiting, shortness of breath, or abdominal pain at that time. Most of the history was taken from the senior care facility staff, ED doctors, patient chart and documents due to patient mental status. Patient initially was admitted to floors due to acute hypoxic respiratory failure secondary to pneumonia. However during hospital stay patient condition worsened, patient developed acute respiratory distress in the setting of total right lung collapse secondary due to mucous plugging. Patient was upgraded to ICU for serial bronchoscopy. 08/28/24: Patient in respiratory destress secondary to severe right sided mucus plugging. Hypoxic respiratory failure while on HFNC. Rapid response called around 16:30. Patient tachypneic in 30s, oxygen saturations in high 70s. Patient will require bronchoscopy with saline flushes to attempt to clear mucus plug. 08/29/24:No acute events overnight, Patient received multiple saline flushes with suction with output of thick purulent mucus. 08/30/24: Seen and examined at bedside. No acute overnight events. Patient is on sedation with RASS of -2 . Plan for today to do another bronchoscopy today. Labs revealed mild hyponatremia, most likely secondary due to poor intake. Patient was n.p.o., we will restart tube feeding, along with some free water flushes. Patient is having a little urine output, again most likely due to poor oral intake. Will continue close monitor urine output. Patient is responding well to antibiotics, no overnight fever. WBC down trended from 19-12.3. 08/31/24: Patient was examined bedside this morning, no acute overnight event. Chest x-ray in the morning showed Significant pneumonia or atelectasis right lower lobe right middle lobe again noted.Endotracheal tube tip 5.2 cm above Tran Prominent vascular congestion.He is having copious, persistent purulent secretion daily and we are doing repeat serial broncoscopy. Will repeat broncoscopy today. received Ceftazidime/Avibactam today,pending ID reccs then will discontinue Zosyn . we will continue chest PT . WBC trending down, no fevers overnight. Exam Vital Signs Temp Pulse Resp BP Pulse Ox O2 Del Method O2 Flow Rate 98.4 F 77 25 H 85/60 L 94 L Mechanical Ventilation 45 08/31/24 08:15 08/31/24 08:30 08/31/24 06:58 08/31/24 08:30 08/31/24 08:30 08/30/24 16:00 08/30/24 12:00 FiO2 35 08/31/24 08:00 Narrative Exam Gen: Chronically ill-appearing emaciated man.. Appears weak. Intubated. HEENT: NCAT, PERRLA, EOMI, MMM, right-sided injected conjunctiva. CVS: Normal S1 and S2. Tachycardic. No M/R/G. Resp: Decreased breath sounds in right lung, coarse breath sounds in left. Abd: Noft, non-tender, non-distended. BS+ in all 4 quadrants. PEG tube in situ, site unremarkable. MSK: Chronically contracted in the upper and lower extremities. Neuro: CN II-XII grossly intact. Quadraplalegic. Patient slowly moves upper extremities Objective Labs 08/31/24 05:29 08/31/24 05:29 Labs: Laboratory Results - last 24 hr 08/31/24 05:29 WBC 8.5 RBC 4.27 L Hgb 11.4 L Hct 38.2 L MCV 90 MCH 26.7 MCHC 29.8 L RDW Std Deviation 50.6 H Plt Count 282 Neut % (Auto) 66 Lymph % (Auto) 18 [place] % (Auto) 11 Eos % (Auto) 4 Baso % (Auto) 1 Neut # (Auto) 5.6 Lymph # (Auto) 1.6 [place] # (Auto) 1.0 H Eos # (Auto) 0.3 Baso # (Auto) 0.0 Immature Gran # (Auto) 0.06 H Absolute Nucleated RBC 0.00 Immature Gran % 1 H Nucleated RBC % 0 Sodium 141 Potassium 3.9 Chloride 103 Carbon Dioxide 28.6 Anion Gap 9 BUN 17 Creatinine 0.3 L Estim Creat Clear Calc 212.2 eGFR > 60 BUN/Creatinine Ratio 57 H Glucose 90 Calculated Osmolality 282 Calcium 9.3 Corrected Calcium 9.8 Phosphorus 2.6 Magnesium 2.0 Total Bilirubin 0.5 AST 18 ALT 14 Alkaline Phosphatase 106 D Total Protein 6.6 Albumin 3.4 L Globulin 3.2 Albumin/Globulin Ratio 1.1 L ABG Interpretation ABG results: 08/21/24 08/21/24 08/22/24 06:20 11:50 11:19 ABG pH 7.38 7.40 ABG pCO2 54 H 53 H ABG pO2 55 L* 52 L* ABG HCO3 32 H 33 H ABG O2 Saturation 88 L 86 L ABG Base Excess 6 H 7 H VBG pH 7.39 VBG pCO2 52 VBG pO2 33 VBG Base Excess 5 H 08/24/24 08/28/24 08/29/24 15:36 18:50 05:10 ABG pH 7.50 H 7.53 H 7.43 D ABG pCO2 45 42 45 ABG pO2 65 L 110 H 171 H D ABG HCO3 35 H 35 H 30 H ABG O2 Saturation 94 100 H 100 H ABG Base Excess 11 H 11 H 5 H VBG pH VBG pCO2 VBG pO2 VBG Base Excess 08/30/24 04:50 ABG pH 7.39 ABG pCO2 49 H ABG pO2 54 L* D ABG HCO3 30 H ABG O2 Saturation 87 L ABG Base Excess 4 H VBG pH VBG pCO2 VBG pO2 VBG Base Excess Quality Measures Quality Measures VTE prophylaxis (not indicated) Assessment & Plan Assessment Current Active Medications: Generic Name Dose Route Start Last Admin Trade Name Freq PRN Reason Stop Dose Admin Acetaminophen 650 mg 08/20/24 08:47 08/24/24 12:40 Acetaminophen 325 Mg Tablet PO 09/16/24 23:35 650 mg Q6H PRN Administration Fever >100.3 or pain 1-3 Protocol Albuterol/Ipratropium 3 ml 08/18/24 01:00 08/31/24 06:08 Albuterol/Ipratropium (Duoneb) Rt Clarissa 3 Ml Nebu INH 09/17/24 00:59 3 ml Q6HRRT ANGEL Administration Baclofen 10 mg 08/29/24 09:00 08/31/24 05:49 Baclofen 10 Mg Tablet PO 09/28/24 08:59 10 mg Q6HR ANGEL Administration Propofol 1,000 mg in 100 mls @ 1.652 mls/hr 08/28/24 17:26 08/31/24 09:03 Diprivan Ivpb IV 09/27/24 17:25 5 mcg/kg/min .Q24H PRN 1.652 mls/hr PER PROTOCOL Titration Protocol 5 MCG/KG/MIN Fentanyl Citrate 2,500 mcg in 250 mls @ 2.5 mls/hr 08/28/24 17:26 08/31/24 09:05 Sublimaze Inj 2,500 Mcg/250 Ml Bag IV 09/02/24 17:25 225 mcg/hr .Q24H PRN 22.5 mls/hr PER PROTOCOL Titration Protocol 25 MCG/HR Ceftazidime/Avibactam 2.5 gm/ 100 mls @ 50 mls/hr 08/31/24 09:15 Sodium Chloride IV 09/07/24 09:14 Q8HR ANGEL Lansoprazole 30 mg 08/23/24 09:00 08/31/24 08:22 Lansoprazole 30 Mg Tab.Rap. GT 09/17/24 08:59 30 mg QDAY ANGEL Administration Levetiracetam 500 mg 08/18/24 09:30 08/31/24 08:22 Levetiracetam Liqd 500 Mg/5 Ml Udc GT 09/17/24 09:29 500 mg BID ANGEL Administration Mineral Oil 30 ml 08/19/24 09:54 Mineral Oil 30 Ml Udc NE 09/16/24 23:44 BID PRN Constipation Ondansetron HCl 4 mg 08/17/24 23:36 Ondansetron Inj 2 Mg/Ml Inj 2 Ml IV 09/16/24 23:35 Q6H PRN NAUSEA OR VOMITING Protocol Polyethylene Glycol 17 gm 08/20/24 09:00 08/31/24 08:22 Polyethylene Glycol 17 Gm Packet PO 09/19/24 08:59 Not Given QDAY ANGEL Sennosides 1 tab 08/22/24 09:00 08/31/24 08:23 Senna Tablet PO 09/21/24 08:59 Not Given QDAY ANGEL Protocol Sodium Chloride 4 ml 08/28/24 13:00 08/31/24 06:58 Sodium Cl Rt Clarissa 3% 4 Ml Nebu (Non-Formulary) INH 09/27/24 12:59 4 ml Q6HRRT ANGEL Administration Tobramycin/Dexamethasone 0 gm 08/29/24 12:00 08/31/24 05:55 Tobramycin/Dexameth Op Oint 3.5 Gm Tube RIGHT EYE 09/05/24 11:59 3.5 gm QID ANGEL Administration Plan 44-year-old male with past medical history of quadriplegia, seizures, s/p PEG tube placement, suprapubic catheter, chronic decubitus ulcer who was brought to the ED from SNF due to altered mental status and fever for 2 days. Patient was subsequently admitted for treatment of sepsis secondary to UTI and pneumonia. - Patient alert and oriented x 4. Responds to questions appropriately indicating patient has capacity to consent for procedures (able to identify objects, mouth where he currently is and why he is here in the hospital). Consented him for bronchoscopy to assist clearing secretions. 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 Continue home Keppra 500 twice daily CVS - No acute issues Respiratory #Acute hypoxic respiratory failure, intubated and mechanically ventilated #Right lower lobe pneumonia #Pseudomonas pneumonia #Right lung total atelectasis #Mechanical ventilation #Severe mucus plug, right lung - Serial bronchoscopy with saline flushes and aggressive suctioning was done yesterday and today, Purulent secretions and mucus plug found predominantly in RML and RLL, able to be thinned out with lavage. Patient tolerated well.Open right upper, right middle and right lower lobes. Mucosa appears erythematous and friable - TV 300, RR 25, FiO2 45% -Continue Zosyn, patient appears to be responding well, no overnight fever, WBC downtrending -3/31/25 : Chest x-ray in the morning showed Significant pneumonia or atelectasis right lower lobe right middle lobe again noted.Endotracheal tube tip 5.2 cm above Tran Prominent vascular congestion.He is having copious, persistent purulent secretion daily and we are doing repeat serial broncoscopy. Will repeat broncoscopy today. received Ceftazidime/Avibactam today for drug resistant pseudomonas ,pending ID reccs then will discontinue Zosyn . we will continue chest PT . WBC trending down, no fevers overnight. Endo - No acute issues Renal #Providencia stuartii and Klebsiella pneumoniae UTI received Ceftazidime/Avibactam today for drug resistant pseudomonas , pending ID reccs GI #Severe constipation, improving #Proctitis CT abdomen and pelvis showed severe stool impaction, appears to be compressing the urinary bladder. Associated with proctitis. Patient is bedridden, noticed some of his meds could be narcotics which may lead to stool impaction. At this time the patient was mildly dehydrated we will hold on osmotic laxatives at this time decrease the risk of worsening his dehydration. 08/19/2024: Patient had a bowel movement after the miralax and the mineral oil enema. Will continue with Miralax daily for now. Plan ?Bowel regimen placed ID #UTI - Providencia stuartii and Klebsiella pneumoniae #PNA - Pseudomonas Cocci serology was negative MRSA screening negative Discontinued ceftriaxone and azithromycin for both pneumonia and UTI due to resistance of urine micro 08/20/24 Sputum culture grew Pseudomonas sensitive to Zosyn, however CHEY indicated intermediate resistance to Zosyn (64), patient appears to be responding to Zosyn, WBC is downtrending, patient is afebrile - pharmacy was notified regarding escalation of antibiotics to Avycaz or Zerbaxa. Medication not available until 08/31 and requires ID consult for approval per pharamacy. We will continue Zosyn until this is available and cleared. - Due to persistent infections exhibiting multiantibiotic resistance that this patient has been susceptible to, in future admissions, aggressive antibiotics such as AVYCAZ or ZERBAXA should be approved for use early in his presentation. -,Avycaz was ordered, however will be available on Saturday. --08/31/24: received Ceftazidime/Avibactam(Avycaz) today for drug resistant pseudomonas , will discontinue Zosyn . after ID reccs #Hyponatremia most likely secondary due to poor oral intake- resolved -Continue free water flushes 20 cc/h -Patient was given 500 cc free water bolus [ -Restart tube feeding -Monitor electrolytes Hospital Maintenance: FEN: tube feeds DVT ppx: Not indicated GI ppx: Lansoprazole IV lines: PIV Moyer: Suprapubic catheter Code status: Full code Dispo: ICU Patient care was discussed with attending physician Dr. Nohemi Rosas MD,PGY-3
[2024-08-31] MEDS: fentaNYL 2,500 MCG/250 ML BAG 2,500 MCG/250 ML BAG 22.5 MCG IV (09:58)
--- NOTE | 2024-08-31 09:59 | ESOP_ITS ---
<Statement entered by Lois Song MD - 09/01/24 14:51> I was present for the critical and pascual portions of the procedure and was immediately available to provide assistance. Procedures Procedure Date / Time 08/31/24958 Procedural Time Out Time out performed: 944 Bronchoscopy Bronscopy indication(s): removal of secretions Informed consent obtained from: patient Time out done and the following verified: correct patient, side and site, procedure and patient position Oxygen delivery: 100% FIO2 Vocal cords: other (unable to assess) Trachea: proximal appears normal, mid appears normal, distal appears normal and secretions noted Tran: sharp in angle RUL & subsegmental branches: purulent secretions RML & subsegmental branches: mucus plugging and purulent secretions (Degree of purulent secretions is less than prior bronchoscopy and mucosa is much less friable) RLL & subsegmental branches: mucus plugging and purulent secretions (Degree of purulent secretions is less than prior bronchoscopy and mucosa is much less friable) CLAYTON & subsegmental branches: mucosa appears normal LLL & subsegmental branches: mucosa appears normal Bronchoalveolar lavage: 60cc in right lung EBL: 0 Patient tolerated procedure: well Complications: No Procedure comment: Secretions are less thick and easily able to be cleared, tissue is much less friable in the right lung
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
--- NOTE | 2024-08-31 10:32 | PD.ADDPROG ---
Addendum Progress Note Addendum Date of report being addended: 08/31/24 Narrative: S ray looks to me more like dextrocardia than rll pneumonia.
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
[2024-08-31] MEDS: PIPER/TAZO INJ 4.5 GM in SODIUM CHLORIDE 0.9% (POP) 100 ML IV ×2 (13:56→21:16)
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
[2024-08-31] MEDS: fentaNYL 2,500 MCG/250 ML BAG 2,500 MCG/250 ML BAG 27.5 MCG IV (20:00)
[2024-09-01] VITALS (37 sets, daily range): BP systolic 83–107; BP diastolic 53–76; PULSE 73–117; RESP 7–28; TEMP 36.4–36.7; O2SAT 91–100; BMI 29.2
[2024-09-01] MEDS: SODIUM CL RT SOL 3% 4 ML NEBU (NON-FORMULARY) INH ×4 (00:19→19:00)
[2024-09-01] MEDS: ALBUTEROL/IPRATROPIUM (Duoneb) RT SOL 3 ML NEBU INH ×4 (00:19→19:00)
[2024-09-01] MEDS: BACLOFEN 10 MG TABLET PO ×3 (00:21→11:52)
--- NOTE | 2024-09-01 05:00 | XR_ITS ---
Examination: AP chest single view TECHNIQUE: AP portable semiupright chest single view exam date and time: September 01, 2024 0520 hours Comparison August 31, 2024 INDICATIONS: Hypoxic respiratory failure, pneumonia and history as well as right lung atelectasis on earlier chest imaging this week FINDINGS: Improved aeration in the right lower lobe Bilateral lung opacity remains, pneumonia ARDS Stable cardiac contour Endotracheal tube tip 4.9 cm above dar. The orogastric tube is in the stomach, the tip is below the level of the film. Gastrostomy tube partly visualized Extensive staghorn right calculi IMPRESSION: Improved aeration in the right lower lobe
[2024-09-01 05:07] LABS: Basophils % (Auto) 1 % (0-2.5); Eosinophils # (Auto) 0.3 Thou/mm3 (0.0-0.5); Eosinophils % (Auto) 4 % (0-10); Hematocrit 33.3 % (41.0-53.0); Hemoglobin 10.7 g/dL (13.5-16.0); Immature Granulocytes % (Auto) 0 % (0-0); Immature Granulocytes Auto 0.02 Thou/mm3 (0.00-0.00); Lymphocytes # (Auto) 1.3 Thou/mm3 (1.0-4.8); Lymphocytes % (Auto) 21 % (10-50); Mean Corpuscular HGB Conc 32.1 g/dl (31.0-37.0); Mean Corpuscular Hemoglobin 27.3 pg (25.0-35.0); Mean Corpuscular Volume 85 fL (80-100); Monocytes # (Auto) 0.7 Thou/mm3 (0.0-0.8); Monocytes % (Auto) 10 % (0-12); Neutrophils # (Auto) 4.2 Thou/mm3 (1.8-7.7); Neutrophils % (Auto) 65 % (37-80); Nucleated Red Blood Cell % 0 /100 WBC (0); Platelet Count 448 Thou/mm3 (140-440); RDW Standard Deviation 47.8 fL (35.1-43.9); Red Blood Count 3.92 Miln/mm3 (4.50-5.90); White Blood Count 6.5 Thou/mm3 (3.8-10.6)
[2024-09-01] MEDS: PIPER/TAZO INJ 4.5 GM in SODIUM CHLORIDE 0.9% (POP) 100 ML IV ×3 (05:25→21:21)
[2024-09-01] MEDS: PROPOFOL 1,000 MG IVPB 1,000 MG/100 ML VIAL 1.652 MG IV (05:28)
[2024-09-01] MEDS: fentaNYL 2,500 MCG/250 ML BAG 2,500 MCG/250 ML BAG 27.5 MCG IV (05:31)
[2024-09-01 05:37] LABS: Alanine Aminotransferase 14 U/L (10-49); Albumin, Serum 3.4 gm/dL (3.5-5.0); Albumin/Globulin Ratio 1.1 (1.2-2.2); Alkaline Phosphatase 95 U/L (46-116); Anion Gap 4 (7-16); Aspartate Amino Transferase 39 U/L (0-34); BUN/Creatinine Ratio 38 Ratio (12-20); Bilirubin,Total 0.3 mg/dL (0.3-1.2); Blood Urea Nitrogen 15 mg/dL (9-23); Calcium 8.3 mg/dL (8.3-10.6); Calcium (Corrected) 8.8 mg/dL (8.5-10.1); Carbon Dioxide 32.3 mMol/L (20.0-31.0); Chloride 104 mMol/L (98-107); Creatinine (Component) 0.4 mg/dL (0.6-1.3); Estimated Creatinine Clearance 182.3 mL/min (>60); Globulin 3.1 gm/dL (2.3-3.5); Glucose 104 mg/dL (74-106); Magnesium 2.2 mg/dL (1.6-2.6); Osmolality,Calculated 280 (275-295); Phosphorous 2.6 mg/dL (2.4-5.1); Potassium 5.2 mMol/L (3.4-5.1); Sodium 140 mMol/L (136-145); Total Protein 6.5 gm/dL (5.7-8.2); eGFR > 60 See Note
--- NOTE | 2024-09-01 07:17 | XR_ITS ---
Examination: AP chest single view TECHNIQUE: AP portable semiupright chest single view Exam date and time: September 01, 2024 0750 hours Comparison September 01, 2024 0520 hours INDICATIONS: Shortness of breath today. FINDINGS: Significant atelectasis right middle lobe right lower lobe with pneumonia Normal heart size Tracheal tube tip 7 cm above dar. The orogastric tube is in the stomach Prominent osteopenia IMPRESSION: Again noted significant atelectasis in the right middle lobe and right lower lobe
[2024-09-01] MEDS: LANSOPRAZOLE 30 MG TAB.RAP.DR GT (08:07)
[2024-09-01] MEDS: levETIRAcetam LIQD 500 MG/5 ML UDC GT ×2 (08:07→21:21)
[2024-09-01 09:44] LABS: Albumin, Serum 3.2 gm/dL (3.5-5.0); Anion Gap 6 (7-16); BUN/Creatinine Ratio 35 Ratio (12-20); Blood Urea Nitrogen 14 mg/dL (9-23); Calcium 8.4 mg/dL (8.3-10.6); Carbon Dioxide 31.8 mMol/L (20.0-31.0); Chloride 104 mMol/L (98-107); Creatinine (Component) 0.4 mg/dL (0.6-1.3); Estimated Creatinine Clearance 162.5 mL/min (>60); Glucose 101 mg/dL (74-106); Osmolality,Calculated 283 (275-295); Phosphorous 2.7 mg/dL (2.4-5.1); Potassium 3.9 mMol/L (3.4-5.1); Sodium 142 mMol/L (136-145); eGFR > 60 See Note
[2024-09-01] MEDS: fentaNYL CIT INJ 50 mCg/ML AMP 2ML 75 MCG IVP ×2 (10:06→10:14)
[2024-09-01] MEDS: MIDAZOLAM INJ 1 MG/ML VIAL 2 ML 4 MG IV (10:15)
--- NOTE | 2024-09-01 10:26 | PC.SS ---
Patient currently undergoing bronchoscopy. Contact precautions are in order.
[2024-09-01] MEDS: ALBUTEROL RT 2.5 MG/0.5 ML NEBU 7.5 MG INH (10:27)
[2024-09-01 10:46] LABS: Cult AFB Sendout- Sputum* See Sep Rpt
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
--- NOTE | 2024-09-01 10:51 | PD.RESPROC ---
Procedures Procedure Date / Time 09/01/24 1005 Procedural Time Out Time out performed: 1002 Procedure Narrative Procedure Narrative: Attending attestation: I was present for entire procedure. Patient Toller procedure well with no immediate complications. Mucosal edema seems to have improved compared to prior evaluation. Secretions reduced but remain proved in the right lower and middle lobes. BAL completed with adequate sampling. No significant blood loss. Bronchoscopy Bronscopy indication(s): removal of secretions and diagnostic BAL Informed consent obtained from: patient Time out done and the following verified: correct patient, side and site, procedure and patient position Oxygen delivery: 100% FIO2 Vocal cords: other (unable to assess) Trachea: proximal appears normal Tran: sharp in angle RUL & subsegmental branches: mucosa appears normal RML & subsegmental branches: purulent secretions (tissue much less friable than previous bronchoscopy, secretions much thinner easier to suction) RLL & subsegmental branches: purulent secretions (tissue much less friable than previous bronchoscopy, secretions much thinner easier to suction) Bronchoalveolar lavage: BAL performed in RLL with 60cc NS flush EBL: 0 Patient tolerated procedure: well Complications: No
[2024-09-01] MEDS: TOBRAMYCIN/DEXAMETH OP OINT 3.5 GM TUBE RIGHT EYE ×3 (11:54→21:21)
--- NOTE | 2024-09-01 12:42 | PC.SS ---
Update: Patient remains intubated. Spontaneous vent setting in place. No sedation at this time. Plan is to possibly extubate patient today. PEG tube in place. Feedings are on hold. No pressor support.
[2024-09-01] MEDS: METHADONE HCL 10 MG TABLET PO ×2 (14:54→21:21)
[2024-09-01] MEDS: HEPARIN SOD INJ 5000 UNIT/ML VIAL SC ×2 (15:01→21:22)
[2024-09-01] MEDS: BACLOFEN 10 MG TABLET 5 MG PO (17:34)
[2024-09-02] VITALS (19 sets, daily range): BP systolic 91–112; BP diastolic 63–79; PULSE 74–101; RESP 7–29; TEMP 36.4–37.1; O2SAT 86–100; BMI 29.8
[2024-09-02] MEDS: BACLOFEN 10 MG TABLET 5 MG PO ×2 (00:31→05:34)
[2024-09-02] MEDS: SODIUM CL RT SOL 3% 4 ML NEBU (NON-FORMULARY) INH ×4 (00:35→18:25)
[2024-09-02] MEDS: ALBUTEROL/IPRATROPIUM (Duoneb) RT SOL 3 ML NEBU INH ×4 (00:35→18:25)
[2024-09-02 05:14] LABS: Basophils % (Auto) 0 % (0-2.5); Eosinophils # (Auto) 0.2 Thou/mm3 (0.0-0.5); Eosinophils % (Auto) 3 % (0-10); Hematocrit 37.4 % (41.0-53.0); Hemoglobin 11.6 g/dL (13.5-16.0); Immature Granulocytes % (Auto) 1 % (0-0); Immature Granulocytes Auto 0.03 Thou/mm3 (0.00-0.00); Lymphocytes # (Auto) 1.3 Thou/mm3 (1.0-4.8); Lymphocytes % (Auto) 21 % (10-50); Mean Corpuscular Hemoglobin 26.7 pg (25.0-35.0); Mean Corpuscular Volume 86 fL (80-100); Monocytes # (Auto) 0.5 Thou/mm3 (0.0-0.8); Monocytes % (Auto) 8 % (0-12); Neutrophils # (Auto) 4.1 Thou/mm3 (1.8-7.7); Neutrophils % (Auto) 67 % (37-80); Nucleated Red Blood Cell % 0 /100 WBC (0); Platelet Count 293 Thou/mm3 (140-440); RDW Standard Deviation 49.4 fL (35.1-43.9); Red Blood Count 4.34 Miln/mm3 (4.50-5.90); White Blood Count 6.1 Thou/mm3 (3.8-10.6)
[2024-09-02] MEDS: METHADONE HCL 10 MG TABLET PO (05:34)
[2024-09-02] MEDS: PIPER/TAZO INJ 4.5 GM in SODIUM CHLORIDE 0.9% (POP) 100 ML IV ×3 (05:35→21:07)
[2024-09-02] MEDS: TOBRAMYCIN/DEXAMETH OP OINT 3.5 GM TUBE RIGHT EYE ×4 (05:35→21:07)
[2024-09-02] MEDS: HEPARIN SOD INJ 5000 UNIT/ML VIAL SC ×3 (05:35→21:19)
[2024-09-02 05:41] LABS: Alanine Aminotransferase 10 U/L (10-49); Albumin, Serum 3.3 gm/dL (3.5-5.0); Alkaline Phosphatase 92 U/L (46-116); Anion Gap 7 (7-16); Aspartate Amino Transferase < 10 U/L (0-34); BUN/Creatinine Ratio 20 Ratio (12-20); Bilirubin,Total 0.4 mg/dL (0.3-1.2); Blood Urea Nitrogen 8 mg/dL (9-23); Calcium 8.8 mg/dL (8.3-10.6); Calcium (Corrected) 9.4 mg/dL (8.5-10.1); Carbon Dioxide 32.1 mMol/L (20.0-31.0); Chloride 104 mMol/L (98-107); Creatinine (Component) 0.4 mg/dL (0.6-1.3); Estimated Creatinine Clearance 162.5 mL/min (>60); Globulin 3.2 gm/dL (2.3-3.5); Glucose 83 mg/dL (74-106); Magnesium 2.2 mg/dL (1.6-2.6); Osmolality,Calculated 282 (275-295); Phosphorous 2.8 mg/dL (2.4-5.1); Sodium 143 mMol/L (136-145); Total Protein 6.5 gm/dL (5.7-8.2); eGFR > 60 See Note
--- NOTE | 2024-09-02 07:18 | XR_ITS ---
Examination: AP chest single view TECHNIQUE: AP portable semiupright chest single view Exam date and time: September 02, 2024 0825 hours Comparison September 01, 2024 INDICATIONS: Sepsis pneumonia right lung volume loss on earlier chest imaging, hypoxic respiratory failure postintubation FINDING: The patient has been extubated There remains pneumonia volume loss in the right lower lobe and right middle lobe Stable cardiac contour The patient's orogastric tube has been removed IMPRESSION: There remains pneumonia and volume loss in the right lower lobe and right middle lobe
[2024-09-02] MEDS: POLYETHYLENE GLYCOL 17 GM PACKET GT (09:14)
[2024-09-02] MEDS: levETIRAcetam LIQD 500 MG/5 ML UDC GT ×2 (09:14→21:06)
[2024-09-02] MEDS: LANSOPRAZOLE 30 MG TAB.RAP.DR GT (09:15)
[2024-09-02] MEDS: SENNA TABLET 1 TAB GT (09:17)
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
[2024-09-02] MEDS: BACLOFEN 10 MG TABLET 5 MG GT ×3 (11:49→23:20)
[2024-09-02] MEDS: METHADONE HCL 10 MG TABLET 15 MG GT ×2 (13:59→21:06)
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
--- NOTE | 2024-09-02 14:52 | PC.SS ---
Update: Patient currently on 1NC. PEG tube in place. Feedings to be resumed. Patient receiving IV antibiotics. Patient is not receiving pressor support. Wound care is following the patient. Patient refusing to be turned by the nursing staff.
--- NOTE | 2024-09-02 14:53 | PC.SS ---
Rounding Note: Patient has been downgraded from ICU.
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
[2024-09-03] VITALS (12 sets, daily range): BP systolic 106–109; BP diastolic 75–84; PULSE 71–86; RESP 18–25; TEMP 36.1–36.4; O2SAT 89–99
[2024-09-03] MEDS: ALBUTEROL/IPRATROPIUM (Duoneb) RT SOL 3 ML NEBU INH ×4 (00:27→18:19)
[2024-09-03] MEDS: SODIUM CL RT SOL 3% 4 ML NEBU (NON-FORMULARY) INH ×4 (00:28→18:20)
[2024-09-03] MEDS: BACLOFEN 10 MG TABLET 5 MG GT ×4 (05:06→23:38)
[2024-09-03] MEDS: METHADONE HCL 10 MG TABLET 15 MG GT ×3 (05:07→21:01)
[2024-09-03] MEDS: PIPER/TAZO INJ 4.5 GM in SODIUM CHLORIDE 0.9% (POP) 100 ML IV ×3 (05:08→21:00)
[2024-09-03] MEDS: HEPARIN SOD INJ 5000 UNIT/ML VIAL SC ×3 (05:12→21:00)
[2024-09-03] MEDS: TOBRAMYCIN/DEXAMETH OP OINT 3.5 GM TUBE RIGHT EYE ×4 (05:15→21:01)
[2024-09-03 05:55] LABS: Basophils % (Auto) 1 % (0-2.5); Eosinophils # (Auto) 0.2 Thou/mm3 (0.0-0.5); Eosinophils % (Auto) 2 % (0-10); Hematocrit 34.7 % (41.0-53.0); Immature Granulocytes % (Auto) 0 % (0-0); Immature Granulocytes Auto 0.03 Thou/mm3 (0.00-0.00); Lymphocytes # (Auto) 1.3 Thou/mm3 (1.0-4.8); Lymphocytes % (Auto) 15 % (10-50); Mean Corpuscular HGB Conc 31.7 g/dl (31.0-37.0); Mean Corpuscular Hemoglobin 27.2 pg (25.0-35.0); Mean Corpuscular Volume 86 fL (80-100); Monocytes # (Auto) 0.7 Thou/mm3 (0.0-0.8); Monocytes % (Auto) 7 % (0-12); Neutrophils # (Auto) 6.7 Thou/mm3 (1.8-7.7); Neutrophils % (Auto) 76 % (37-80); Nucleated Red Blood Cell % 0 /100 WBC (0); Platelet Count 386 Thou/mm3 (140-440); RDW Standard Deviation 48.4 fL (35.1-43.9); Red Blood Count 4.04 Miln/mm3 (4.50-5.90); White Blood Count 8.8 Thou/mm3 (3.8-10.6)
[2024-09-03 06:04] LABS: INR 1.1 (0.9-1.3); Partial Thromboplastin Time 28.7 Seconds (22.0-36.0); Prothrombin Time 11.9 Seconds (9.0-12.2)
[2024-09-03 06:27] LABS: Alanine Aminotransferase 8 U/L (10-49); Albumin, Serum 3.2 gm/dL (3.5-5.0); Alkaline Phosphatase 79 U/L (46-116); Anion Gap 11 (7-16); Aspartate Amino Transferase < 10 U/L (0-34); BUN/Creatinine Ratio 20 Ratio (12-20); Bilirubin,Total 0.3 mg/dL (0.3-1.2); Blood Urea Nitrogen 8 mg/dL (9-23); Calcium 8.8 mg/dL (8.3-10.6); Calcium (Corrected) 9.4 mg/dL (8.5-10.1); Carbon Dioxide 29.8 mMol/L (20.0-31.0); Chloride 102 mMol/L (98-107); Creatinine (Component) 0.4 mg/dL (0.6-1.3); Estimated Creatinine Clearance 163.8 mL/min (>60); Globulin 3.3 gm/dL (2.3-3.5); Glucose 91 mg/dL (74-106); Osmolality,Calculated 283 (275-295); Potassium 3.6 mMol/L (3.4-5.1); Sodium 143 mMol/L (136-145); Total Protein 6.5 gm/dL (5.7-8.2); eGFR > 60 See Note
[2024-09-03] MEDS: SENNA TABLET 1 TAB GT (09:06)
[2024-09-03] MEDS: levETIRAcetam LIQD 500 MG/5 ML UDC GT ×2 (09:06→21:01)
[2024-09-03] MEDS: POLYETHYLENE GLYCOL 17 GM PACKET GT (09:06)
[2024-09-03] MEDS: LANSOPRAZOLE 30 MG TAB.RAP.DR GT (09:06)
--- NOTE | 2024-09-03 09:22 | PC.SS ---
SS has sent dated inquiry to [facility] using [employer]. [facility] using [employer]
--- NOTE | 2024-09-03 12:01 | PC.SS ---
Pt is requiring IV antibiotic, Zosen 2X day until 09-06-24. SS has spoken to Jocy at [facility] who explained only if [facility] will be doing the IV. SS has spoken to Osiris Fragoos from [facility] and they are unable to do the IV antibiotic. Physicians are aware.
[2024-09-03] MEDS: ACETAMINOPHEN SOL 325 MG/10 ML UDC 650 MG GT (12:10)
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
[2024-09-04] VITALS (13 sets, daily range): BP systolic 97–107; BP diastolic 73–85; PULSE 70–93; RESP 14–24; TEMP 36.1–37.2; O2SAT 92–100; BMI 18.3
[2024-09-04] MEDS: ALBUTEROL/IPRATROPIUM (Duoneb) RT SOL 3 ML NEBU INH ×4 (01:36→18:46)
[2024-09-04] MEDS: SODIUM CL RT SOL 3% 4 ML NEBU (NON-FORMULARY) INH ×4 (01:36→18:46)
[2024-09-04] MEDS: MG HYD/AL HYD/SIME (Maalox Reg) SUSP 30 ML UDC PO (01:59)
[2024-09-04 05:37] LABS: Basophils # (Auto) 0.1 Thou/mm3 (0.0-0.2); Basophils % (Auto) 1 % (0-2.5); Eosinophils # (Auto) 0.2 Thou/mm3 (0.0-0.5); Eosinophils % (Auto) 3 % (0-10); Hematocrit 38.2 % (41.0-53.0); Hemoglobin 11.8 g/dL (13.5-16.0); Immature Granulocytes % (Auto) 0 % (0-0); Immature Granulocytes Auto 0.03 Thou/mm3 (0.00-0.00); Lymphocytes # (Auto) 1.3 Thou/mm3 (1.0-4.8); Lymphocytes % (Auto) 18 % (10-50); Mean Corpuscular HGB Conc 30.9 g/dl (31.0-37.0); Mean Corpuscular Hemoglobin 26.9 pg (25.0-35.0); Mean Corpuscular Volume 87 fL (80-100); Monocytes # (Auto) 0.6 Thou/mm3 (0.0-0.8); Monocytes % (Auto) 8 % (0-12); Neutrophils # (Auto) 5.2 Thou/mm3 (1.8-7.7); Neutrophils % (Auto) 70 % (37-80); Nucleated Red Blood Cell % 0 /100 WBC (0); Platelet Count 372 Thou/mm3 (140-440); RDW Standard Deviation 49.5 fL (35.1-43.9); Red Blood Count 4.38 Miln/mm3 (4.50-5.90); White Blood Count 7.3 Thou/mm3 (3.8-10.6)
[2024-09-04] MEDS: METHADONE HCL 10 MG TABLET 15 MG GT ×3 (05:51→21:21)
[2024-09-04] MEDS: BACLOFEN 10 MG TABLET 5 MG GT ×4 (05:51→23:30)
[2024-09-04] MEDS: PIPER/TAZO INJ 4.5 GM in SODIUM CHLORIDE 0.9% (POP) 100 ML IV ×3 (05:51→21:22)
[2024-09-04] MEDS: HEPARIN SOD INJ 5000 UNIT/ML VIAL SC ×3 (05:51→21:20)
[2024-09-04] MEDS: TOBRAMYCIN/DEXAMETH OP OINT 3.5 GM TUBE RIGHT EYE ×4 (05:59→21:39)
[2024-09-04 06:43] LABS: Alanine Aminotransferase 8 U/L (10-49); Albumin, Serum 3.3 gm/dL (3.5-5.0); Albumin/Globulin Ratio 1.1 (1.2-2.2); Alkaline Phosphatase 79 U/L (46-116); Anion Gap 6 (7-16); BUN/Creatinine Ratio 38 Ratio (12-20); Bilirubin,Total 0.3 mg/dL (0.3-1.2); Blood Urea Nitrogen 15 mg/dL (9-23); Calcium 8.9 mg/dL (8.3-10.6); Calcium (Corrected) 9.5 mg/dL (8.5-10.1); Carbon Dioxide 33.8 mMol/L (20.0-31.0); Chloride 103 mMol/L (98-107); Creatinine (Component) 0.4 mg/dL (0.6-1.3); Estimated Creatinine Clearance 163.8 mL/min (>60); Globulin 3.1 gm/dL (2.3-3.5); Glucose 108 mg/dL (74-106); Osmolality,Calculated 286 (275-295); Potassium 3.3 mMol/L (3.4-5.1); Sodium 143 mMol/L (136-145); Total Protein 6.4 gm/dL (5.7-8.2); eGFR > 60 See Note
[2024-09-04 06:45] LABS: Aspartate Amino Transferase < 8 U/L (0-34)
[2024-09-04] MEDS: LANSOPRAZOLE 30 MG TAB.RAP.DR GT (08:37)
[2024-09-04] MEDS: SENNA TABLET 1 TAB GT (08:38)
[2024-09-04] MEDS: POLYETHYLENE GLYCOL 17 GM PACKET GT (08:40)
[2024-09-04] MEDS: levETIRAcetam LIQD 500 MG/5 ML UDC GT ×2 (08:40→21:22)
[2024-09-04] MEDS: POTASSIUM CHLORIDE 10% 20 MEQ/15 ML UDC 40 MEQ GT (08:50)
--- NOTE | 2024-09-04 09:16 | PC.SS ---
Follow up note: Pt is on IV antibiotic until 09-07-24. Pt will return to [facility] with [facility].
[2024-09-04] MEDS: ACETAMINOPHEN SOL 325 MG/10 ML UDC 650 MG GT ×2 (09:49→18:17)
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
[2024-09-05] VITALS (11 sets, daily range): BP systolic 92–111; BP diastolic 56–81; PULSE 73–91; RESP 16–18; TEMP 36.5; O2SAT 94–99; BMI 17.8
[2024-09-05] MEDS: ALBUTEROL/IPRATROPIUM (Duoneb) RT SOL 3 ML NEBU INH ×4 (01:22→18:45)
[2024-09-05] MEDS: SODIUM CL RT SOL 3% 4 ML NEBU (NON-FORMULARY) INH ×3 (01:22→13:21)
[2024-09-05 05:28] LABS: Basophils % (Auto) 0 % (0-2.5); Eosinophils # (Auto) 0.2 Thou/mm3 (0.0-0.5); Eosinophils % (Auto) 2 % (0-10); Hematocrit 38.4 % (41.0-53.0); Hemoglobin 11.9 g/dL (13.5-16.0); Immature Granulocytes % (Auto) 0 % (0-0); Immature Granulocytes Auto 0.02 Thou/mm3 (0.00-0.00); Lymphocytes # (Auto) 1.7 Thou/mm3 (1.0-4.8); Lymphocytes % (Auto) 18 % (10-50); Mean Corpuscular Hemoglobin 26.9 pg (25.0-35.0); Mean Corpuscular Volume 87 fL (80-100); Monocytes # (Auto) 0.6 Thou/mm3 (0.0-0.8); Monocytes % (Auto) 7 % (0-12); Neutrophils # (Auto) 6.7 Thou/mm3 (1.8-7.7); Neutrophils % (Auto) 73 % (37-80); Nucleated Red Blood Cell % 0 /100 WBC (0); Platelet Count 362 Thou/mm3 (140-440); RDW Standard Deviation 51.6 fL (35.1-43.9); Red Blood Count 4.43 Miln/mm3 (4.50-5.90); White Blood Count 9.2 Thou/mm3 (3.8-10.6)
[2024-09-05 06:04] LABS: Alanine Aminotransferase 7 U/L (10-49); Albumin, Serum 3.4 gm/dL (3.5-5.0); Albumin/Globulin Ratio 1.1 (1.2-2.2); Alkaline Phosphatase 77 U/L (46-116); Anion Gap 7 (7-16); Aspartate Amino Transferase 10 U/L (0-34); BUN/Creatinine Ratio 22 Ratio (12-20); Bilirubin,Total 0.2 mg/dL (0.3-1.2); Blood Urea Nitrogen 11 mg/dL (9-23); Calcium 8.8 mg/dL (8.3-10.6); Calcium (Corrected) 9.3 mg/dL (8.5-10.1); Carbon Dioxide 32.1 mMol/L (20.0-31.0); Chloride 104 mMol/L (98-107); Creatinine (Component) 0.5 mg/dL (0.6-1.3); Estimated Creatinine Clearance 155.2 mL/min (>60); Globulin 3.2 gm/dL (2.3-3.5); Glucose 94 mg/dL (74-106); Magnesium 2.4 mg/dL (1.6-2.6); Osmolality,Calculated 284 (275-295); Potassium 4.2 mMol/L (3.4-5.1); Sodium 143 mMol/L (136-145); Total Protein 6.6 gm/dL (5.7-8.2); eGFR > 60 See Note
[2024-09-05] MEDS: PIPER/TAZO INJ 4.5 GM in SODIUM CHLORIDE 0.9% (POP) 100 ML IV ×3 (06:11→21:19)
[2024-09-05] MEDS: HEPARIN SOD INJ 5000 UNIT/ML VIAL SC ×3 (06:12→21:20)
[2024-09-05] MEDS: METHADONE HCL 10 MG TABLET 15 MG GT ×3 (06:12→21:19)
[2024-09-05] MEDS: TOBRAMYCIN/DEXAMETH OP OINT 3.5 GM TUBE RIGHT EYE (06:13)
[2024-09-05] MEDS: BACLOFEN 10 MG TABLET 5 MG GT ×4 (06:13→23:34)
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
[2024-09-05] MEDS: POLYETHYLENE GLYCOL 17 GM PACKET GT (09:10)
[2024-09-05] MEDS: levETIRAcetam LIQD 500 MG/5 ML UDC GT ×2 (09:10→21:19)
[2024-09-05] MEDS: LANSOPRAZOLE 30 MG TAB.RAP.DR GT (09:11)
[2024-09-05] MEDS: SENNA TABLET 1 TAB GT (09:11)
[2024-09-05 17:50] LABS: Index Value <0.50
[2024-09-05] MEDS: ACETAMINOPHEN SOL 325 MG/10 ML UDC 650 MG GT (19:59)
[2024-09-06] VITALS (12 sets, daily range): BP systolic 91–115; BP diastolic 52–83; PULSE 73–92; RESP 14–19; TEMP 36.1–36.3; O2SAT 94–100; BMI 17.8
[2024-09-06] MEDS: SODIUM CL RT SOL 3% 4 ML NEBU (NON-FORMULARY) INH ×4 (01:23→19:31)
[2024-09-06] MEDS: ALBUTEROL/IPRATROPIUM (Duoneb) RT SOL 3 ML NEBU INH ×4 (01:24→19:31)
[2024-09-06] MEDS: HEPARIN SOD INJ 5000 UNIT/ML VIAL SC ×3 (05:10→21:30)
[2024-09-06] MEDS: PIPER/TAZO INJ 4.5 GM in SODIUM CHLORIDE 0.9% (POP) 100 ML IV ×3 (05:11→21:29)
[2024-09-06] MEDS: METHADONE HCL 10 MG TABLET 15 MG GT ×3 (05:11→21:30)
[2024-09-06] MEDS: BACLOFEN 10 MG TABLET 5 MG GT ×4 (05:11→23:48)
[2024-09-06 05:37] LABS: Basophils % (Auto) 1 % (0-2.5); Eosinophils # (Auto) 0.2 Thou/mm3 (0.0-0.5); Eosinophils % (Auto) 2 % (0-10); Hematocrit 37.5 % (41.0-53.0); Hemoglobin 11.4 g/dL (13.5-16.0); Immature Granulocytes % (Auto) 0 % (0-0); Immature Granulocytes Auto 0.01 Thou/mm3 (0.00-0.00); Lymphocytes # (Auto) 1.7 Thou/mm3 (1.0-4.8); Lymphocytes % (Auto) 23 % (10-50); Mean Corpuscular HGB Conc 30.4 g/dl (31.0-37.0); Mean Corpuscular Hemoglobin 27.1 pg (25.0-35.0); Mean Corpuscular Volume 89 fL (80-100); Monocytes # (Auto) 0.6 Thou/mm3 (0.0-0.8); Monocytes % (Auto) 8 % (0-12); Neutrophils % (Auto) 67 % (37-80); Nucleated Red Blood Cell % 0 /100 WBC (0); Platelet Count 275 Thou/mm3 (140-440); RDW Standard Deviation 55.7 fL (35.1-43.9); White Blood Count 7.5 Thou/mm3 (3.8-10.6)
[2024-09-06 06:12] LABS: Alanine Aminotransferase 9 U/L (10-49); Albumin, Serum 3.1 gm/dL (3.5-5.0); Alkaline Phosphatase 68 U/L (46-116); Anion Gap 10 (7-16); Aspartate Amino Transferase 17 U/L (0-34); BUN/Creatinine Ratio 20 Ratio (12-20); Bilirubin,Total 0.2 mg/dL (0.3-1.2); Blood Urea Nitrogen 10 mg/dL (9-23); Calcium 8.5 mg/dL (8.3-10.6); Calcium (Corrected) 9.2 mg/dL (8.5-10.1); Chloride 107 mMol/L (98-107); Creatinine (Component) 0.5 mg/dL (0.6-1.3); Estimated Creatinine Clearance 150.4 mL/min (>60); Globulin 3.2 gm/dL (2.3-3.5); Glucose 97 mg/dL (74-106); Osmolality,Calculated 287 (275-295); Potassium 3.9 mMol/L (3.4-5.1); Sodium 145 mMol/L (136-145); Total Protein 6.3 gm/dL (5.7-8.2); eGFR > 60 See Note
[2024-09-06] MEDS: levETIRAcetam LIQD 500 MG/5 ML UDC GT ×2 (09:23→21:31)
[2024-09-06] MEDS: SENNA TABLET 1 TAB GT (09:23)
[2024-09-06] MEDS: POLYETHYLENE GLYCOL 17 GM PACKET GT (09:23)
[2024-09-06] MEDS: LANSOPRAZOLE 30 MG TAB.RAP.DR GT (09:23)
[2024-09-06] MEDS: Silvasorb Gel 45 ML TUBE TOP (09:39)
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
[2024-09-06] MEDS: ACETAMINOPHEN SOL 325 MG/10 ML UDC 650 MG GT ×2 (12:00→19:38)
--- NOTE | 2024-09-06 13:44 | PCS.ST ---
pt seen for skilled meal observation. Downgrade diet to D2 d/t fatigue.
--- NOTE | 2024-09-06 15:10 | PC.SS ---
Rounding: One more day of IV ABX and DC [facility]
--- NOTE | 2024-09-06 19:36 | PC.RT ---
pt refused cpt
[2024-09-07] VITALS (12 sets, daily range): BP systolic 102–120; BP diastolic 76–90; PULSE 71–87; RESP 12–21; TEMP 36–36.4; O2SAT 91–100; BMI 18.6
[2024-09-07] MEDS: ALBUTEROL/IPRATROPIUM (Duoneb) RT SOL 3 ML NEBU INH ×4 (01:09→20:09)
[2024-09-07] MEDS: ACETAMINOPHEN SOL 325 MG/10 ML UDC 650 MG GT ×3 (02:47→21:58)
[2024-09-07] MEDS: PIPER/TAZO INJ 4.5 GM in SODIUM CHLORIDE 0.9% (POP) 100 ML IV (05:24)
[2024-09-07] MEDS: HEPARIN SOD INJ 5000 UNIT/ML VIAL SC ×3 (05:24→21:44)
[2024-09-07] MEDS: BACLOFEN 10 MG TABLET 5 MG GT ×3 (05:25→17:32)
[2024-09-07] MEDS: METHADONE HCL 10 MG TABLET 15 MG GT (05:25)
[2024-09-07 05:50] LABS: Basophils # (Auto) 0.1 Thou/mm3 (0.0-0.2); Basophils % (Auto) 0 % (0-2.5); Eosinophils # (Auto) 0.3 Thou/mm3 (0.0-0.5); Eosinophils % (Auto) 2 % (0-10); Hematocrit 37.4 % (41.0-53.0); Hemoglobin 11.8 g/dL (13.5-16.0); Immature Granulocytes % (Auto) 0 % (0-0); Immature Granulocytes Auto 0.04 Thou/mm3 (0.00-0.00); Lymphocytes # (Auto) 1.2 Thou/mm3 (1.0-4.8); Lymphocytes % (Auto) 11 % (10-50); Mean Corpuscular HGB Conc 31.6 g/dl (31.0-37.0); Mean Corpuscular Hemoglobin 27.1 pg (25.0-35.0); Mean Corpuscular Volume 86 fL (80-100); Monocytes # (Auto) 0.6 Thou/mm3 (0.0-0.8); Monocytes % (Auto) 5 % (0-12); Neutrophils % (Auto) 81 % (37-80); Nucleated Red Blood Cell % 0 /100 WBC (0); Platelet Count 302 Thou/mm3 (140-440); RDW Standard Deviation 51.7 fL (35.1-43.9); Red Blood Count 4.36 Miln/mm3 (4.50-5.90); White Blood Count 11.1 Thou/mm3 (3.8-10.6)
[2024-09-07 06:13] LABS: Alanine Aminotransferase 10 U/L (10-49); Albumin, Serum 3.2 gm/dL (3.5-5.0); Alkaline Phosphatase 68 U/L (46-116); Anion Gap 10 (7-16); Aspartate Amino Transferase 14 U/L (0-34); BUN/Creatinine Ratio 28 Ratio (12-20); Bilirubin,Total 0.3 mg/dL (0.3-1.2); Blood Urea Nitrogen 11 mg/dL (9-23); Calcium 8.9 mg/dL (8.3-10.6); Calcium (Corrected) 9.5 mg/dL (8.5-10.1); Carbon Dioxide 29.4 mMol/L (20.0-31.0); Chloride 102 mMol/L (98-107); Creatinine (Component) 0.4 mg/dL (0.6-1.3); Estimated Creatinine Clearance 187.9 mL/min (>60); Globulin 3.2 gm/dL (2.3-3.5); Glucose 121 mg/dL (74-106); Osmolality,Calculated 281 (275-295); Sodium 141 mMol/L (136-145); Total Protein 6.4 gm/dL (5.7-8.2); eGFR > 60 See Note
[2024-09-07 06:21] LABS: Potassium 2.7 mMol/L (3.4-5.1)
[2024-09-07 07:09] LABS: Aspergillus Ag, Ser* NOT DETECTED
[2024-09-07] MEDS: SODIUM CL RT SOL 3% 4 ML NEBU (NON-FORMULARY) INH (07:52)
[2024-09-07 07:59] LABS: Magnesium 1.9 mg/dL (1.6-2.6)
[2024-09-07] MEDS: POTASSIUM CHLORIDE 10% 20 MEQ/15 ML UDC 40 MEQ GT ×2 (08:04→08:25)
[2024-09-07] MEDS: levETIRAcetam LIQD 500 MG/5 ML UDC GT ×2 (08:04→21:37)
[2024-09-07] MEDS: LANSOPRAZOLE 30 MG TAB.RAP.DR GT (08:05)
[2024-09-07] MEDS: SENNA TABLET 1 TAB GT (08:05)
[2024-09-07] MEDS: POLYETHYLENE GLYCOL 17 GM PACKET GT (08:05)
[2024-09-07] MEDS: Silvasorb Gel 45 ML TUBE TOP (08:05)
[2024-09-07] MEDS: ONDANSETRON INJ 2 MG/ML INJ 2 ML 4 MG IV (08:31)
--- NOTE | 2024-09-07 09:38 | PC.SS ---
Follow up note: Pt will receive last dose of IV antibiotic around 2pm. Pt will return to [facility] with [facility]. Pt is aware. Jocy at [facility] is aware. Osiris Marrero from [facility] is aware. SS has left patient's uncle, Robby a voicemail (pt is aware).
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
[2024-09-07 14:02] LABS: Potassium 3.7 mMol/L (3.4-5.1)
--- NOTE | 2024-09-07 15:02 | PC.SS ---
SS has setup gurney transportation with [facility] for 5pm. Ref# [id number]..? SS has requested [facility].? Per [facility] commercial sales representative, [facility] is not a guaranteed transport company.? Estimated time is 3-4 hours.? SS has sent patient?s facesheet and ambulance form to [facility] using [employer].? SS has spoken to at [facility] who has placed pt on will call list until they has been contacted by [facility]. [facility] will [facility] going [facility]. Pt is aware. Uncle Robby is aware. Osiris Fragoso from [facility] is aware. Bedside nurse, Juan Antonio is aware. Jocy at [facility] is aware.
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
--- NOTE | 2024-09-07 16:20 | PC.NURSE ---
RN called report to [facility] for this pt. Report given to furnace charger. Transportation arranged for 1700 bean picker time from [facility].
--- NOTE | 2024-09-07 17:57 | PC.NURSE ---
EMS made RN aware they would not be able to fruit picker pt until 010 on 09/08/24. RN called [facility] to inform them that the pt will not be picked up from [facility] until 09/08. [facility] stated that is ok. The pt can be transferred at that time.
--- NOTE | 2024-09-07 20:07 | PC.NURSE ---
Osiris shen from [facility] tel#[phone] called rn. rn notified Osiris pt discharging at 0100am to [facility]. Per Osiris if we can hold off discharge tomorrow as they cannot sent their rn neonatal icu at [facility] at 0100am. Called and notified Dr. Hanna and per md Chavez to Discharge pt to [facility] tomorrow. Pt girlfriend at bedside and notified of discharge time change.
--- NOTE | 2024-09-07 20:18 | PC.NURSE ---
Carrie Goldsmith(mother in law) tel#[phone].
--- NOTE | 2024-09-07 20:21 | PC.NURSE ---
rn called [facility] and notified [place] [facility] staff re holding off discharge at 0100 and pt discharging tomorrow morning instead. Simon party plan sales unit sales leader notified [facility] re holding off 0100am discharge. Per [facility] New discharge time will be at 0900am tomorrow. Simon party plan sales unit sales leader refaxing all forms needed to [facility] re new time change. rn called [place] staff at [facility] and Osiris staff at [facility] and notified pt New discharge time at 0900am tomorrow. rn called Carrie Goldsmith(mother in law) to notify of new time but no answer.
[2024-09-08] VITALS (77 sets, daily range): BP systolic 93–144; BP diastolic 58–102; PULSE 78–152; RESP 0–42; TEMP 36.3–37; O2SAT 89–100
[2024-09-08] MEDS: BACLOFEN 10 MG TABLET 5 MG GT ×3 (00:14→17:11)
[2024-09-08] MEDS: ACETAMINOPHEN SOL 325 MG/10 ML UDC 650 MG GT (01:43)
[2024-09-08] MEDS: ONDANSETRON INJ 2 MG/ML INJ 2 ML 4 MG IV (03:16)
--- NOTE | 2024-09-08 03:16 | PC.NURSE ---
pt vomitted- Stopped gtube feeding, zofran prn iv given.
--- NOTE | 2024-09-08 03:40 | PC.NURSE ---
pt complain of can't breathe and sweating. 84% O2 sat on room air- applied O2 inh on at 6L/min/nc but per pt can't really breathe well through the nose. Pt vomitted several times yellowish fluid moderate amount. Suctioned orally with yankuer, with small amount fluid suctioned. RT at bedside and increased O2 inh on to 15L/min via oxymask.
--- NOTE | 2024-09-08 04:00 | PC.NURSE ---
seen and examined by Dr. Adame- syl/ orders made and carried out. Continue to stop gtube feeding for now per .
--- NOTE | 2024-09-08 04:03 | XR_ITS ---
Examination: AP chest single view Technique one AP portable semiupright chest single view Exam date and time: September 08, 2024 0416 hrs. Comparison September 02, 2024 Indications: Change in breath sounds vomiting today. Findings: Interval significant right lung pneumonia Deviation of the trachea to the right indicating some element of atelectasis Normal heart size Mild/moderate right pleural fluid Impression: Interval significant right lung pneumonia with atelectasis
[2024-09-08 04:19] LABS: Base Excess 6 (-3-3); HCO3 31 mEq/L (20-26); Inspired Oxygen, FIO2 100 %; O2 Saturation 93 % (91-98); PCO2 44 mmHg (32.0-48.0); PO2 68 mmHg (83-108); pH, Arterial 7.46 (7.35-7.45)
[2024-09-08 04:20] LABS: Allen Test Performed/OK; Puncture Site Right Radial
[2024-09-08] MEDS: HEPARIN SOD INJ 5000 UNIT/ML VIAL SC ×3 (06:07→21:22)
--- NOTE | 2024-09-08 07:25 | PC.NURSE ---
rn called Carrie Agus(mother in law)- notified of Discharge time at 0900, and notified of pt change of condition pt on High Flow nasal cannula. Carrie coming this morning to see pt.
--- NOTE | 2024-09-08 07:35 | CHAP ---
Rapid Response call. Prayed outside room for the patient and for the team working inside. No family was present.
--- NOTE | 2024-09-08 07:36 | EKG_ITS ---
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: VALENTINA : 1980 Requested By: Kin Mckeon Order Number: [id number] Reading MD: Kin Mckeon Measurements Intervals [place] Rate: 140 P: 32 VA: 123 QRS: 75 QRSD: 95 T: -43 QT: 329 QTc: 503 Interpretive Statements SINUS TACHYCARDIA, POSSIBLE ATRIAL FLUTTER ST DEVIATION AND MODERATE T-WAVE ABNORMALITY, CONSIDER LATERAL ISCHEMIA ST DEVIATION AND MODERATE T-WAVE ABNORMALITY, CONSIDER INFERIOR ISCHEMIA Compared to ECG 08/17/2024 21:15:41 Sinus rhythm no longer present Incomplete right bundle-branch block no longer present Myocardial infarct finding no longer present T-wave abnormality still present Possible ischemia still present /store/S0/[id number]/ecg/[id number].pdf
--- NOTE | 2024-09-08 07:36 | PC.NURSE ---
Rapid response called at 0732, pt yellibng for help, stated he can't breathe, needs air, asking us to hurry, tachycardic in the 140s
--- NOTE | 2024-09-08 07:57 | PC.SS ---
Update: Rapid response initiated on the patient. Plan is for patient to d/c to SNF today at 09:00 am. Patient on high flow nasal cannula, 28L. 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 TAFE REGISTRAR updated [facility] staff, SNF and resource management planner.
[2024-09-08 08:01] LABS: Base Excess 6 (-3-3); HCO3 30 mEq/L (20-26); Inspired Oxygen, FIO2 100 %; O2 Saturation 90 % (91-98); PCO2 39 mmHg (32.0-48.0); pH, Arterial 7.48 (7.35-7.45)
[2024-09-08 08:09] LABS: Allen Test Performed/OK; PO2 53 mmHg (83-108); Puncture Site Right Radial
--- NOTE | 2024-09-08 08:48 | PC.NURSE ---
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 Pt 02 saturation dropping to 84% maxed out on hiflow with increased work of breathing and lethargy needing immediate transport to ICU. ICU MD wants pt bagged and transported for intubation on the ICU unit
[2024-09-08 08:53] LABS: Basophils # (Auto) 0.1 Thou/mm3 (0.0-0.2); Basophils % (Auto) 0 % (0-2.5); Eosinophils % (Auto) 0 % (0-10); Hematocrit 45.2 % (41.0-53.0); Hemoglobin 14.4 g/dL (13.5-16.0); Immature Granulocytes % (Auto) 1 % (0-0); Immature Granulocytes Auto 0.22 Thou/mm3 (0.00-0.00); Lymphocytes # (Auto) 0.8 Thou/mm3 (1.0-4.8); Lymphocytes % (Auto) 3 % (10-50); Mean Corpuscular HGB Conc 31.9 g/dl (31.0-37.0); Mean Corpuscular Hemoglobin 27.5 pg (25.0-35.0); Mean Corpuscular Volume 86 fL (80-100); Monocytes # (Auto) 0.7 Thou/mm3 (0.0-0.8); Monocytes % (Auto) 2 % (0-12); Neutrophils # (Auto) 29.5 Thou/mm3 (1.8-7.7); Neutrophils % (Auto) 94 % (37-80); Nucleated Red Blood Cell % 0 /100 WBC (0); Platelet Count 454 Thou/mm3 (140-440); RDW Standard Deviation 52.6 fL (35.1-43.9); Red Blood Count 5.23 Miln/mm3 (4.50-5.90); White Blood Count 31.3 Thou/mm3 (3.8-10.6)
--- NOTE | 2024-09-08 08:57 | CHAP ---
Rapid Response Call. Prayed for patient and those working with him from outside the room. No visitors or family present.
[2024-09-08 09:26] LABS: Alanine Aminotransferase 10 U/L (10-49); Albumin, Serum 3.6 gm/dL (3.5-5.0); Alkaline Phosphatase 84 U/L (46-116); Anion Gap 11 (7-16); Aspartate Amino Transferase 14 U/L (0-34); BUN/Creatinine Ratio 38 Ratio (12-20); Bilirubin,Total 0.6 mg/dL (0.3-1.2); Blood Urea Nitrogen 15 mg/dL (9-23); Calcium 9.1 mg/dL (8.3-10.6); Calcium (Corrected) 9.4 mg/dL (8.5-10.1); Carbon Dioxide 28.9 mMol/L (20.0-31.0); Chloride 101 mMol/L (98-107); Creatinine (Component) 0.4 mg/dL (0.6-1.3); Globulin 3.6 gm/dL (2.3-3.5); Glucose 152 mg/dL (74-106); Magnesium 1.8 mg/dL (1.6-2.6); Osmolality,Calculated 285 (275-295); Potassium 3.2 mMol/L (3.4-5.1); Sodium 141 mMol/L (136-145); Total Protein 7.2 gm/dL (5.7-8.2); Troponin I < 0.002 ng/mL (0.0-0.045); eGFR > 60 See Note
[2024-09-08] MEDS: ETOMIDATE INJ 2 MG/ML VIAL 10 ML 15 MG IVP (09:38)
[2024-09-08] MEDS: ROCURONIUM INJ 10 MG/ML VIAL 10 ML 59 MG IV (09:39)
--- NOTE | 2024-09-08 09:41 | XR_ITS ---
Examination: AP chest single view Technique one AP portable upright chest single view Exam date and time: September 08, 2024 1144 hrs. Comparison September 08, 2024 Indications: Post bronchoscopy Findings: Bilateral pneumonia remains, including significant pneumonia diffusely in the right lung Prominent vascular congestion Tracheal tube tip 4.9 cm above dar Prominent osteopenia Impression: Bilateral pneumonia significant right lung Mild associated heart failure Tracheal tube tip 4.9 cm above dar
[2024-09-08] MEDS: MIDAZOLAM INJ 1 MG/ML VIAL 2 ML 2 MG IV (09:42)
[2024-09-08] MEDS: fentaNYL 2,500 MCG/250 ML BAG 2,500 MCG/250 ML BAG IV (09:44)
--- NOTE | 2024-09-08 10:14 | PD.RESPROC ---
Procedures Procedure Date / Time 09/08/24 9:15 Procedural Time Out Time out performed: yes Procedure Narrative Procedure Narrative: Attending attestation: I was present for entire procedure. Patient tolerated procedure well with no immediate complications. Bronchoscopy was immediately performed with adequate positioning of the ET tube. Follow-up chest x-ray shows appropriate distance from dar. Intubation Indication(s): acute Resp Failure Informed consent obtained: procedure done urgently Time out done, and the following verified: correct patient, side and site, procedure, patient position and implants and/or equipment Sedative: etomidate Mg given: 15 Paralytic: rocuronium Mg given: 60 Laryngoscope: fiber optic video scope Assist device used: fiber optic device ET tube size: 7 Tube secured depth (cm): 25 Tube secured location: teeth Tube placement confirmation: visualized tube passing through cords, equal breath sounds bilaterally and confirmation by capnometry Patient tolerated procedure: well EBL(ml): 1 Intubation complications: none Additional comments: A time out was performed. My hands were washed immediately prior to the procedure. I wore a mask and gloves. The patient was placed on a manager cardiac cath including continuous pulse oximetry. Rapid Sequence Intubation was conducted. The patient received 15 mg of etomidate for induction and 60 mg of rocuronium for adequate paralysis. Cricoid pressure was maintained from time induction agent was given to time of cuff balloon inflation. Using a video laryngoscope and a size 7 endotracheal tube with stylet, the patient was intubated on the first attempt. The stylet was removed and cuff balloon was inflated. Appropriate endotracheal tube position was confirmed by direct visualization of vocal cord passage, fogging of the tube, CO2 colormetric indicator and symmetric breath sounds. The tube was secured at 25 cm at the lips. Post intubation chest x-ray showed satisfactory position. Case disclosed and supervised by my attending Dr. Mike Flores MD PGY1
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
--- NOTE | 2024-09-08 11:45 | PC.SS ---
Update: Patient upgraded to ICU today. Rapid response generated on the patient. Patient had aspirated. Bronch procedure conducted on patient today.
[2024-09-08] MEDS: ALBUTEROL/IPRATROPIUM (Duoneb) RT SOL 3 ML NEBU INH ×2 (12:34→18:30)
--- NOTE | 2024-09-08 13:20 | PD.RESPROC ---
Procedures Procedure Date / Time 09/09/24 1320 Procedure Narrative Procedure Narrative: Attending attestation: I was present for entire procedure. Patient tolerated procedure well. No immediate complications. Full secretions appear less than yesterday. Bronchoscopy Bronscopy indication(s): removal of secretions Informed consent obtained from: proc. done emergently Time out done and the following verified: correct patient, procedure, patient position and implants and/or equipment Oxygen delivery: via mechanical vent. Vocal cords: symmetric equally mobile Trachea: proximal appears normal, mid appears normal, distal appears normal and secretions noted Tran: sharp in angle RUL & subsegmental branches: purulent secretions and inflammation RML & subsegmental branches: purulent secretions and inflammation RLL & subsegmental branches: purulent secretions and inflammation CLAYTON & subsegmental branches: purulent secretions and inflammation LLL & subsegmental branches: purulent secretions and inflammation Bronchoalveolar lavage: SPECIMENT SENT FOR CULTURE
[2024-09-08] MEDS: PIPER/TAZO INJ 4.5 GM in SODIUM CHLORIDE 0.9% (POP) 100 ML IV ×2 (14:01→21:20)
[2024-09-08] MEDS: POLYETHYLENE GLYCOL 17 GM PACKET GT (14:40)
[2024-09-08] MEDS: LANSOPRAZOLE 30 MG TAB.RAP.DR GT (14:40)
[2024-09-08] MEDS: levETIRAcetam LIQD 500 MG/5 ML UDC GT ×2 (14:41→21:20)
[2024-09-08] MEDS: SENNA TABLET 1 TAB GT (14:41)
[2024-09-08] MEDS: Silvasorb Gel 45 ML TUBE TOP (14:45)
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
[2024-09-08 15:06] LABS: Cult AFB Sendout- Sputum* See Sep Rpt
[2024-09-08] MEDS: PROPOFOL 1,000 MG IVPB 1,000 MG/100 ML VIAL 1.773 MG IV (15:08)
[2024-09-08] MEDS: fentaNYL 2,500 MCG/250 ML BAG 2,500 MCG/250 ML BAG 30 MCG IV (17:10)
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
[2024-09-08] MEDS: SODIUM CL RT SOL 3% 4 ML NEBU (NON-FORMULARY) INH (18:30)
[2024-09-09] VITALS (61 sets, daily range): BP systolic 88–134; BP diastolic 40–78; PULSE 94–126; RESP 9–100; TEMP 36.1–37.3; O2SAT 86–100; BMI 18.6
[2024-09-09] MEDS: ALBUTEROL/IPRATROPIUM (Duoneb) RT SOL 3 ML NEBU INH ×4 (00:30→18:59)
[2024-09-09] MEDS: SODIUM CL RT SOL 3% 4 ML NEBU (NON-FORMULARY) INH ×4 (00:30→18:59)
[2024-09-09] MEDS: fentaNYL 2,500 MCG/250 ML BAG 2,500 MCG/250 ML BAG 30 MCG IV ×3 (00:52→17:45)
[2024-09-09] MEDS: BACLOFEN 10 MG TABLET 5 MG GT ×4 (00:58→17:37)
[2024-09-09 04:45] LABS: Base Excess 2 (-3-3); HCO3 30 mEq/L (20-26); Inspired Oxygen, FIO2 21 %; O2 Saturation 95 % (91-98); PCO2 64 mmHg (32.0-48.0); PO2 80 mmHg (83-108); pH, Arterial 7.28 (7.35-7.45)
[2024-09-09 04:48] LABS: Inspired O2, VO2 Liters 100 L/min; Puncture Site Site Not Noted
--- NOTE | 2024-09-09 05:37 | XR_ITS ---
Examination: AP chest single view Technique: AP portable semiupright chest single view Exam date and time: September 09, 2024 0552 hrs. Comparison September 08, 2024 Indications: Pneumonia, hypoxic respiratory failure this week, postintubation Findings: Bilateral pneumonia again noted, severe in the right lung Tracheal tube tip 6.4 cm above dar Prominent osteopenia No pneumothorax Impression: Bilateral pneumonia ARDS, severe in the right lung, again noted
[2024-09-09] MEDS: PIPER/TAZO INJ 4.5 GM in SODIUM CHLORIDE 0.9% (POP) 100 ML IV ×3 (05:50→21:28)
[2024-09-09] MEDS: HEPARIN SOD INJ 5000 UNIT/ML VIAL SC ×3 (05:51→21:29)
[2024-09-09 05:56] LABS: Basophils % (Auto) 0 % (0-2.5); Eosinophils # (Auto) 0.1 Thou/mm3 (0.0-0.5); Eosinophils % (Auto) 1 % (0-10); Hematocrit 38.8 % (41.0-53.0); Hemoglobin 11.6 g/dL (13.5-16.0); Immature Granulocytes % (Auto) 0 % (0-0); Immature Granulocytes Auto 0.04 Thou/mm3 (0.00-0.00); Lymphocytes # (Auto) 0.8 Thou/mm3 (1.0-4.8); Lymphocytes % (Auto) 6 % (10-50); Mean Corpuscular HGB Conc 29.9 g/dl (31.0-37.0); Mean Corpuscular Hemoglobin 27.2 pg (25.0-35.0); Mean Corpuscular Volume 91 fL (80-100); Monocytes # (Auto) 0.5 Thou/mm3 (0.0-0.8); Monocytes % (Auto) 4 % (0-12); Neutrophils # (Auto) 11.2 Thou/mm3 (1.8-7.7); Neutrophils % (Auto) 89 % (37-80); Nucleated Red Blood Cell % 0 /100 WBC (0); Platelet Count 207 Thou/mm3 (140-440); RDW Standard Deviation 57.1 fL (35.1-43.9); Red Blood Count 4.26 Miln/mm3 (4.50-5.90); White Blood Count 12.5 Thou/mm3 (3.8-10.6)
[2024-09-09 07:03] LABS: Alanine Aminotransferase 8 U/L (10-49); Albumin, Serum 3.3 gm/dL (3.5-5.0); Albumin/Globulin Ratio 1.1 (1.2-2.2); Alkaline Phosphatase 66 U/L (46-116); Anion Gap 14 (7-16); Aspartate Amino Transferase 15 U/L (0-34); BUN/Creatinine Ratio 35 Ratio (12-20); Bilirubin,Total 0.9 mg/dL (0.3-1.2); Blood Urea Nitrogen 28 mg/dL (9-23); Calcium 8.8 mg/dL (8.3-10.6); Calcium (Corrected) 9.4 mg/dL (8.5-10.1); Carbon Dioxide 26.6 mMol/L (20.0-31.0); Chloride 104 mMol/L (98-107); Creatinine (Component) 0.8 mg/dL (0.6-1.3); Estimated Creatinine Clearance 98.5 mL/min (>60); Glucose 100 mg/dL (74-106); Osmolality,Calculated 294 (275-295); Potassium 3.6 mMol/L (3.4-5.1); Sodium 145 mMol/L (136-145); Total Protein 6.3 gm/dL (5.7-8.2); eGFR > 60 See Note
[2024-09-09] MEDS: RINGERS LACTATED 1000 ML 1,000 ML 100 ML IV (07:11)
[2024-09-09 07:50] LABS: Base Excess 2 (-3-3); HCO3 30 mEq/L (20-26); Inspired Oxygen, FIO2 100 %; O2 Saturation 72 % (91-98); PCO2 62 mmHg (32.0-48.0); pH, Arterial 7.29 (7.35-7.45)
[2024-09-09 07:58] LABS: Allen Test Not Performed; PO2 41 mmHg (83-108); Puncture Site Right Brachial
[2024-09-09] MEDS: levETIRAcetam LIQD 500 MG/5 ML UDC GT ×2 (08:35→21:29)
[2024-09-09] MEDS: POLYETHYLENE GLYCOL 17 GM PACKET GT (08:35)
[2024-09-09] MEDS: SENNA TABLET 1 TAB GT (08:35)
[2024-09-09] MEDS: LANSOPRAZOLE 30 MG TAB.RAP.DR GT (08:35)
[2024-09-09] MEDS: Silvasorb Gel 45 ML TUBE TOP (08:36)
[2024-09-09] MEDS: MIDAZOLAM INJ 1 MG/ML VIAL 2 ML 2 MG IV (11:06)
[2024-09-09] MEDS: ALBUTEROL RT 2.5 MG/0.5 ML NEBU 7.5 MG INH (11:35)
[2024-09-09] MEDS: PROPOFOL 1,000 MG IVPB 1,000 MG/100 ML VIAL 3.546 MG IV (11:36)
--- NOTE | 2024-09-09 13:13 | PD.RESPROC ---
Procedures Procedure Date / Time 09/09/24 11:15 Procedural Time Out Time out performed: yes Procedure Narrative Procedure Narrative: Patient was given 2 mg of Versed prior to procedure for sedation. Bronchoscope was lubricated and includes the indwelling ETT in the standard fashion. Dar was visualized and bronchoscope was advanced to the right lung and secretions were noted in the right upper, right middle, and right lower lobe. Secretions were less thicker than prior bronchoscopy. Tissue was friable. Bronchoscope was retrieved back to view of dar and then was advanced to the left lung which did not show any secretions and mucosa appeared normal. Case discussed and supervised with my attending Dr. Mckeon. Sushant Flores MD PGY1 Attending attestation: I was present for entire procedure. Patient Toller procedure well with no immediate complications. Significant friable mucosa still and reaccumulation of secretions though they appear to be thinner now. Patient had no significant blood loss. Sedation as per above. Bronchoscopy Bronscopy indication(s): removal of secretions Informed consent obtained from: patient Time out done and the following verified: correct patient, side and site, procedure, patient position and implants and/or equipment Oxygen delivery: via mechanical vent. Vocal cords: other (Could not be assessed) Trachea: proximal appears normal and secretions noted Dar: sharp in angle RUL & subsegmental branches: purulent secretions and other (less secretions than previous bronchoscopy) RML & subsegmental branches: purulent secretions and other (less secretions than previous bronchoscopy) RLL & subsegmental branches: purulent secretions and other (less secretions than previous bronchoscopy) CLAYTON & subsegmental branches: mucosa appears normal LLL & subsegmental branches: mucosa appears normal EBL: 3 Patient tolerated procedure: well Complications: No
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
--- NOTE | 2024-09-09 13:51 | PC.SS ---
Update: Patient remains intubated/sedated. PEG in place. Tube feedings to resume today. Broch performed today. Patient not receiving pressors. Contact precautions in place.
[2024-09-09 14:47] LABS: Band Neutrophils (Manual) 42 % (0-6); Lymphocytes (Manual) 6 % (20-44); Monocytes (Manual) 5 % (2-9); Neutrophils (Manual) 47 % (50-70)
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
--- NOTE | 2024-09-09 17:35 | PC.NURSE ---
Unable to start tube feedin due to episode of emesis. Per to hold off on feeding start
[2024-09-10] VITALS (106 sets, daily range): BP systolic 51–114; BP diastolic 36–85; PULSE 47–209; RESP 0–33; TEMP 36.1–39.2; O2SAT 16–100; BMI 18.5
[2024-09-10] MEDS: BACLOFEN 10 MG TABLET 5 MG GT ×3 (00:19→19:15)
[2024-09-10] MEDS: ALBUTEROL/IPRATROPIUM (Duoneb) RT SOL 3 ML NEBU INH ×2 (00:44→06:29)
[2024-09-10] MEDS: SODIUM CL RT SOL 3% 4 ML NEBU (NON-FORMULARY) INH ×2 (00:44→06:29)
[2024-09-10] MEDS: fentaNYL 2,500 MCG/250 ML BAG 2,500 MCG/250 ML BAG 30 MCG IV ×2 (02:10→10:16)
[2024-09-10 05:23] LABS: Basophils % (Auto) 0 % (0-2.5); Eosinophils % (Auto) 0 % (0-10); Hematocrit 35.8 % (41.0-53.0); Immature Granulocytes % (Auto) 1 % (0-0); Immature Granulocytes Auto 0.08 Thou/mm3 (0.00-0.00); Lymphocytes # (Auto) 0.4 Thou/mm3 (1.0-4.8); Lymphocytes % (Auto) 4 % (10-50); Mean Corpuscular HGB Conc 30.7 g/dl (31.0-37.0); Mean Corpuscular Hemoglobin 27.4 pg (25.0-35.0); Mean Corpuscular Volume 89 fL (80-100); Monocytes # (Auto) 0.4 Thou/mm3 (0.0-0.8); Monocytes % (Auto) 4 % (0-12); Neutrophils # (Auto) 8.3 Thou/mm3 (1.8-7.7); Neutrophils % (Auto) 90 % (37-80); Nucleated Red Blood Cell % 0 /100 WBC (0); Platelet Count 225 Thou/mm3 (140-440); RDW Standard Deviation 55.6 fL (35.1-43.9); Red Blood Count 4.01 Miln/mm3 (4.50-5.90); White Blood Count 9.2 Thou/mm3 (3.8-10.6)
[2024-09-10 05:53] LABS: Alanine Aminotransferase < 7 U/L (10-49); Albumin, Serum 3.2 gm/dL (3.5-5.0); Albumin/Globulin Ratio 1.1 (1.2-2.2); Alkaline Phosphatase 65 U/L (46-116); Anion Gap 9 (7-16); Aspartate Amino Transferase 13 U/L (0-34); BUN/Creatinine Ratio 47 Ratio (12-20); Bilirubin,Total 0.8 mg/dL (0.3-1.2); Blood Urea Nitrogen 28 mg/dL (9-23); Calcium 8.9 mg/dL (8.3-10.6); Calcium (Corrected) 9.5 mg/dL (8.5-10.1); Carbon Dioxide 30.4 mMol/L (20.0-31.0); Chloride 107 mMol/L (98-107); Creatinine (Component) 0.6 mg/dL (0.6-1.3); Estimated Creatinine Clearance 131.3 mL/min (>60); Glucose 101 mg/dL (74-106); Osmolality,Calculated 296 (275-295); Potassium 3.6 mMol/L (3.4-5.1); Sodium 146 mMol/L (136-145); Total Protein 6.2 gm/dL (5.7-8.2); eGFR > 60 See Note
[2024-09-10] MEDS: PIPER/TAZO INJ 4.5 GM in SODIUM CHLORIDE 0.9% (POP) 100 ML IV (05:55)
[2024-09-10] MEDS: HEPARIN SOD INJ 5000 UNIT/ML VIAL SC ×2 (05:55→15:43)
[2024-09-10] MEDS: PROPOFOL 1,000 MG IVPB 1,000 MG/100 ML VIAL 3.546 MG IV (06:03)
--- NOTE | 2024-09-10 06:52 | XR_ITS ---
Examination: AP chest single view Technique one AP portable semiupright chest single view Exam date and time: September 10, 2024 0706 hrs. Comparison September 09, 2024 Indications: Shortness of breath, pneumonia or heart failure on earlier chest imaging, hypoxic respiratory failure postintubation Findings: Significant bilateral basilar pneumonia Moderate heart failure with enlargement cardiac contour prominent vascular congestion perihilar edema Tracheal tube tip 4.7 cm above dar Moderate right pleural effusion Impression: Moderate heart failure Significant bilateral pneumonia
[2024-09-10 07:01] LABS: Base Excess 4 (-3-3); HCO3 31 mEq/L (20-26); Inspired Oxygen, FIO2 95 %; O2 Saturation 87 % (91-98); PCO2 56 mmHg (32.0-48.0); pH, Arterial 7.35 (7.35-7.45)
[2024-09-10 07:08] LABS: Allen Test Not Performed; PO2 50 mmHg (83-108); Puncture Site Right Brachial
--- NOTE | 2024-09-10 07:25 | EKG_ITS ---
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 : 1980 Requested By: Sushant Flores Order Number: [id number] Reading MD: Sushant Flores Measurements Intervals Dunlap Rate: 209 P: SC: QRS: 128 QRSD: 142 T: 84 QT: 237 QTc: 443 Interpretive Statements UNCERTAIN REGULAR RHYTHM RIGHT BUNDLE BRANCH BLOCK LEFT POSTERIOR FASCICULAR BLOCK ST DEPRESSION, CONSIDER SUBENDOCARDIAL INJURY Compared to ECG 09/08/2024 07:44:48 Right bundle-branch block now present Left posterior fascicular block now present ST (T wave) deviation now present T-wave abnormality no longer present Possible ischemia no longer present /store/S0/[id number].pdf
--- NOTE | 2024-09-10 08:32 | XR_ITS ---
Examination: CTA chest with intravenous contrast 2-D reconstructions 3-D reconstructions, vascular Date and time of exam: September 10, 2024 1136 hrs. Comparison March 31, 2024 Indications: Hypoxia, hypoxic respiratory failure postintubation, tachycardia, clinical diagnosis pulmonary emboli CTDI: vol (mGy) 8.93 DLP: (mGycm) 344 Technique: Multiple axial sections of the thorax have been obtained. 3 mm slice thickness, from below the hemidiaphragms to above the apices of the lungs. Mediastinal and lung density settings have been obtained. 2-D sagittal and coronal reconstructions. 3-D angiographic renderings, 3-D volume renderings, 3D post processing, vascular maximum intensity projections obtained. Contrast administered is 100 cc [id number] Low dose protocols were performed. One or more of the following dose reduction techniques were used; automated exposure control, adjustment of the mA and/or KV according to patient size, use of iterative reconstruction technique. Findings: Endotracheal tube tip 5.6 cm above dar No thoracic aortic aneurysm dilatation Pulmonary artery opacification is relatively poor, no pulmonary artery filling defects Miliary nodular pattern throughout both lungs Bilateral soft tissue pulmonary nodules, the largest in the right lung 11 mm, 14 mm Atelectasis right lower lobe Moderate right mild left pleural fluid No visualized liver or splenic lesions Partial visualization extensive right renal calculi including in the right renal pelvis Impression: Negative for pulmonary artery emboli Miliary pneumonia pattern throughout both lungs, differential would include active tuberculosis Soft bilateral pulmonary nodules, which may be infectious, pulmonary nodular metastatic disease not excluded Moderate right mild left pleural fluid Partial visualization extensive right renal staghorn calculi including in the right renal pelvis
[2024-09-10] MEDS: ACETAMINOPHEN SOL 325 MG/10 ML UDC 650 MG GT (09:06)
[2024-09-10] MEDS: POLYETHYLENE GLYCOL 17 GM PACKET GT (09:06)
[2024-09-10] MEDS: SENNA TABLET 1 TAB GT (09:06)
[2024-09-10] MEDS: LANSOPRAZOLE 30 MG TAB.RAP.DR GT (09:06)
[2024-09-10] MEDS: levETIRAcetam LIQD 500 MG/5 ML UDC GT (09:06)
[2024-09-10] MEDS: RINGERS LACTATED 1000 ML 1,000 ML 100 ML IV (09:08)
[2024-09-10] MEDS: Silvasorb Gel 45 ML TUBE TOP (09:13)
[2024-09-10] MEDS: RINGERS LACTATED 1000 ML 1,000 ML 999 ML IV (09:45)
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
[2024-09-10 10:31] LABS: Lactate (Lactic Acid) 2.2 mMol/L (0.4-2.0)
[2024-09-10] MEDS: Norepinephrine/D5W 8mg/250ml 8 MG/250 ML BAG 5.494 MG IV (10:38)
--- NOTE | 2024-09-10 13:12 | PC.SS ---
Update: Patient remains intubated. Patient is off sedation. Pressor support intact. PEG in place, currently NPO. Patient remains on contact precautions. Plan is for central line placement.
[2024-09-10 13:29] LABS: Reflex Lactate? Y
--- NOTE | 2024-09-10 14:09 | XR_ITS ---
Examination: AP chest single view Technique one AP portable semiupright chest single view Exam date and time: September 10, 2024 1455 hrs. Comparison September 10, 2024 0706 hrs. Indications: Post central line placement Findings: Extensive bilateral pneumonia again noted with associated mild heart failure Interval right internal jugular central line tip SVC satisfactory position, no pneumothorax Endotracheal tube tip 8.2 cm above dar Prominent osteopenia Impression: Interval right internal jugular central line in satisfactory position, no pneumothorax
[2024-09-10] MEDS: CEFTAZIDIME IV (15:43)
[2024-09-10] MEDS: SODIUM CHLORIDE 0.9% IV (15:43)
[2024-09-10] MEDS: AVIBACTAM IV (15:43)
[2024-09-10] MEDS: VANCOMYCIN/D5W 1,250 MG IVPB 250 ML 120 MG IV (15:43)
[2024-09-10 16:02] LABS: Lactic Acid, 3 HR 1.5 mMol/L (0.4-2.0)
--- NOTE | 2024-09-10 16:16 | PC.SS ---
WHEELABRATOR OPERATOR confirmed with ICU resident that patient's surrogate medical decison maker, Robby Watkins; has granted permission for medical team to provide clinical updates to patient's friend Carrie Barnesr .
[2024-09-10] MEDS: Norepinephrine/D5W 8mg/250ml 8 MG/250 ML BAG 60.431 MG IV ×2 (16:20→20:26)
--- NOTE | 2024-09-10 17:23 | PD.RESPROC ---
Procedures Procedure Date / Time 09/10/24 1:10 Procedural Time Out Time out performed: yes Procedure Narrative Procedure Narrative: Attending Attestation: I was present for entire procedure. Patient tolerated the procedure well. No immediate complications. Follow up chest film shows no significant PTX and adequate position of the catheter. Central Line Placement Right IJ: Indication(s): shock Informed consent obtained: procedure done urgently Time out done, and the following verified: correct patient, side and site, procedure, patient position and implants and/or equipment Patient placed on monitor/pulse ox: Yes Hand Hygiene: alcohol-based hand rub Max Sterile Barrier Techniques used: cap, mask, sterile gown, sterile gloves and sterile full body drape Central line prep: Chlorhexidine scrub Local anesthesia used: lidocaine 1% Amount of anesthesia used (mL): 5 Ultrasound used for placement: Yes Sterile Technique if Ultrasound used, including sterile gel: yes Central line lumen inserted: triple Post procedure: sutured in place, good blood return, all ports aspirated, flushed, capped and sterile dressing applied Post procedure x-ray: tip of catheter in good position and no pneumothorax seen Patient tolerated procedure: well EBL(ml): 2 Complications: none Procedure comment: The patient was placed in Trendelenburg position. The Right neck was prepped using chlorhexidine scrub ?and draped in sterile fashion. ?Using real-time ultrasound, with sterile probe cover and sterile gel, the introducer needle was inserted into the vein under direct ultrasound visualization. Venous blood was withdrawn. The syringe was removed and a guidewire was advanced into the introducer needle. The guidewire was visualized in the appropriate vein by ultrasound. A small incision was made at the skin surface with a scalpel and the introducer needle was exchanged for a dilator over the guidewire. After appropriate dilation was obtained, the dilator was exchanged over the wire for a central venous catheter. The wire was removed and the catheter was sutured in place. A biopatch was placed at the insertion site. A sterile op-site was placed over the catheter and biopatch. The patient tolerated the procedure without any hemodynamic compromise. At time of procedure completion, all ports aspirated and flushed properly. Chest X Ray afterwards, catheter in good position.? Case disclosed and supervised by my attending Dr. Mike Flores MD PGY1
--- NOTE | 2024-09-10 17:23 | PD.RESPROC ---
Procedures Procedure Date / Time 09/10/24 16:10 Procedural Time Out Time out performed: yes Procedure Narrative Procedure Narrative: Attending Attestation: I was present for the entire procedure. No immediate complications. Unsuccessfil cannulation. Unable to attempt other sites due to contractures. NIBP monitoring to continue. Arterial Line Indication(s): frequent arterial line sampling, hypoxic resp failure and shock Informed consent obtained: obtained from surrogate decision maker Time out done, and the following verified: correct patient, side and site, procedure, patient position and implants and/or equipment Technique used: other (US guided with wire technique ) Patient tolerated procedure: well EBL(ml): 2 Complications: other (Unsuccessful due to poor perfusion. ) Site: right Procedure comment: A time out was performed. My hands were washed immediately prior to the procedure. I wore a surgical cap, mask, sterile gown and sterile gloves throughout the procedure.The Right wrist was prepped using chlorhexidine scrub and draped in sterile fashion. The radial pulse was identified and the wrist was positioned in the usual fashion. Using the Arrow Radial Arterial Line Kit, a needle was inserted into the radial artery. Arterial blood was not seen therefore procedure was done under ultrasound guidance, but even though on ultrasound monitor it could be seen that needle was in radial artery there was still no arterial blood seen most likely due to hypoperfusion as patient is on high-dose vasopressors at this time. At this time was decided to not try procedure again and to reattempt tomorrow. Case discussed and supervised by attending Dr. Mike Flores MD PGY1
[2024-09-10] MEDS: Magnesium Sulfate 4 GM Ivpb 4 GM/50 ML BAG IV (20:47)
[2024-09-10] MEDS: POTASSIUM CHL 20 mEq IVPB 20 MEQ/100 ML BAG 50 MEQ IV (20:48)
[2024-09-10] MEDS: VASOPRESSIN IN NS IVPB 20 UNIT/100 ML BAG 9 UNIT IV (21:15)
--- NOTE | 2024-09-10 21:17 | XR_ITS ---
Examination: AP chest single view Technique one AP portable semiupright chest single view Exam date and time: September 10, [id number] hrs. Comparison September 10, 2024 1444 hrs. Indications: SOB hypoxic respiratory failure altered desaturation Findings: Extensive bilateral pneumonia Additional atelectasis in the right lower lobe Mild associated heart failure Stable enlarged cardiac contour Prominent vascular congestion Right internal jugular central line tip satisfactory position Tracheal tube tip 6.3 cm above dar Impression: Extensive bilateral pneumonia Interval prominent atelectasis in the right lower lobe Mild heart failure
[2024-09-10 21:35] LABS: Base Excess, Venous -4 (-3-3); O2 Saturation, Venous 89 % (96-97); PCO2, Venous 63 mmHg (36-56); PO2, Venous 50 mmHg (15-58)
[2024-09-10] MEDS: AMIODARONE 150 MG IVPB 150 MG/100 ML BAG 600 MG IV (21:44)
[2024-09-10] MEDS: AMIODARONE 360 MG IVPB 360 MG/200 ML BAG 33.333 MG IV (21:53)
[2024-09-10 22:05] LABS: Anion Gap 11 (7-16); BUN/Creatinine Ratio 35 Ratio (12-20); Blood Urea Nitrogen 38 mg/dL (9-23); Calcium 9.3 mg/dL (8.3-10.6); Carbon Dioxide 25.8 mMol/L (20.0-31.0); Chloride 104 mMol/L (98-107); Creatinine (Component) 1.1 mg/dL (0.6-1.3); Glucose 215 mg/dL (74-106); Magnesium 2.2 mg/dL (1.6-2.6); Osmolality,Calculated 296 (275-295); Phosphorous 4.4 mg/dL (2.4-5.1); Potassium 5.3 mMol/L (3.4-5.1); Sodium 141 mMol/L (136-145); eGFR > 60 See Note
--- NOTE | 2024-09-10 22:31 | PD.RESEVENT ---
Documentation for date of: 09/10/24 Event Note Event Note: Cheryle Rodriguez was called around 9:45 PM due to PEA. CPR was initiated, and the patient received one dose of epinephrine. ROSC was achieved after two minutes of chest compressions. The patient's family arrived shortly after and was informed of the poor prognosis. They requested to proceed with a DNR order, followed by comfort care. The patient was pronounced at 10:50 PM. The patient's management plan was discussed with my attending physician MD Ran Moore MD, PGY2
[2024-09-10] MEDS: MORPHINE SULF INJ 10 MG/ML VIAL 2 MG IVP (22:51)
[2024-09-10] MEDS: LORazepam 2 MG/ML VIAL 1 MG IVP (22:51)
--- NOTE | 2024-09-10 23:34 | PD.DPN ---
Documentation for date of: 09/10/24 Pronouncement Note Date and Time of Date of : 09/10/24 Time of : 22:50 PCOD Preliminary cause of : Cardiopulmonary arrest Summary Additional details: Around [address] To and myself for no pulse and the patient did not had pulse, no respirations, no heart sound and pupils were fixed and dilated. Patient was pronounced at 2250. Additional Data Confirmation of : no pulse, no respirations, no heart sounds and pupils fixed and dilated Family: at bedside Attending physician: Richard Mckeon MD Was code activated?: No (Patient code status was changed to DNR. ) Advance directives: Yes
--- NOTE | 2024-09-10 23:35 | PC.NURSE ---
Patient pronounced at [address]. Donor network called at 2313 by Hilary Schuster RN who spoke to Juan. [facility]# [id number].
--- NOTE | 2024-09-11 01:18 | PC.NURSE ---
Patients remains released to [facility] by mortuary staff at this time.
== END 2024-09-10 22:55 | disposition expired | DRG 130 ==
LOC: SERX 21:51 → SERHOLD 08-18 01:09 → S2NX 08-18 05:22 → S3SX 08-18 06:46 → S2SX 08-28 17:20 → S3NX 09-02 18:00 → S2SX 09-09 10:53 → S3NX 09-09 11:00
PROVIDERS: Emergency Medicine; Internal Medicine; Student in an Organized Health Care Education/Training Program; Admitting Provider Internal Medicine; Emergency Provider Emergency Medicine; PCP Hospitalist; Visit Provider Internal Medicine Critical Care Medicine
DX: J15.1 Pneumonia due to Pseudomonas (principal); N39.0 Urinary tract infection, site not specified; G82.50 Quadriplegia, unspecified; G93.41 Metabolic encephalopathy; H10.9 Unspecified conjunctivitis; K56.41 Fecal impaction; E86.0 Dehydration; G40.909 Epilepsy, unspecified, not intractable, without status epilepticus; E87.0 Hyperosmolality and hypernatremia; Z93.1 Gastrostomy status; E87.1 Hypo-osmolality and hyponatremia; G89.29 Other chronic pain; J15.0 Pneumonia due to Klebsiella pneumoniae; Z51.5 Encounter for palliative care; Z86.14 Personal history of Methicillin resistant Staphylococcus aureus infection; Z16.19 Resistance to other specified beta lactam antibiotics; Z74.01 Bed confinement status; Z16.12 Extended spectrum beta lactamase (ESBL) resistance; Z16.11 Resistance to penicillins; Z16.24 Resistance to multiple antibiotics; Y95 Nosocomial condition; Y84.8 Other medical procedures as the cause of abnormal reaction of the patient, or of later complication, without mention of misadventure at the time of the procedure; R54 Age-related physical debility; J98.11 Atelectasis; J96.21 Acute and chronic respiratory failure with hypoxia; N20.0 Calculus of kidney; I46.8 Cardiac arrest due to other underlying condition; J47.1 Bronchiectasis with (acute) exacerbation; J95.851 Ventilator associated pneumonia; L89.90 Pressure ulcer of unspecified site, unspecified stage; Z79.899 Other long term (current) drug therapy; Z93.59 Other cystostomy status; J47.0 Bronchiectasis with acute lower respiratory infection
CPT/HCPCS: 36415; 36600; 70450; 71045; 71275; 74176; 80048; 80053; 80069; 80202; 81001; 82140; 82803; 83605; 83615; 83690; 83735; 83880; 84100; 84132; 84145; 84443; 84484; 85025; 85610; 85730; 86331; 86635; 87015; 87040; 87070; 87077; 87081; 87086; 87102; 87106; 87116; 87186; 87205; 87206; 87305; 87400; 87811; 92526; 92610; 93005; 93225; 94002; 94003; 94640; 94660; 94667; 96365; 96366; 96367; 96372; 99291; A4649; A9270; J0283; J0696; J0714; J1643; J2060; J2250; J2270; J2310; J2405; J2470; J2543; J2598; J2704; J3010; J3370; J3475; J3480; J3490; J7030; J7050; J7120; Q9967